=== PATIENT | male | born 1965 | race Caucasian/White ===

== ENCOUNTER → 2017-12-01 19:17 | Outpatient (REF) | payer MEDICAID, SELFPAY ==
[2017-12-01 21:33] LABS: HCT 44.1 % (40.0-50.0); HGB 14.5 g/dL (13.5-17.5); Mean Corp. HGB Concentration 32.9 g/dL (32.0-36.0); Mean Corpuscular Hemoglobin 26.3 pg (27.0-33.0); Mean Platelet Volume 10.6 fL (8.0-11.0); Platelet Count 296 x1000/uL (130-400); RBC 5.51 m/cumm (4.50-6.00); RBC Distribution Width 14.5 % (11.8-14.1); White Blood Cell Count 19.68 k/cumm (4.4-10.8)
[2017-12-01 22:07] LABS: ALT 56 U/L (12-78); AST 31 U/L (15-37); Albumin 3.8 g/dL (3.4-5.0); Alkaline Phosphatase 124 U/L (46-116); Anion Gap 13.4 mmol/L (3-11); BUN 26 mg/dL (7-18); Bilirubin, Total 0.5 mg/dL (0.2-1.0); CO2 23.6 mmol/L (21.0-32.0); CREATININE 1.37 mg/dL (0.70-1.30); Calcium 9.2 mg/dL (8.5-10.1); Chloride 97 mmol/L (98-107); Glucose 440 mg/dL (70-100); Potassium 4.2 mmol/L (3.5-5.1); Sodium 134 mmol/L (136-145); Total Protein 7.7 g/dL (6.4-8.2)
== END ==
LOC: NCHCN 19:17
PROVIDERS: PCP Specialist/Technologist Athletic Trainer; Visit Provider Specialist/Technologist Athletic Trainer
DX: E11.65 Type 2 diabetes mellitus with hyperglycemia (principal)
CPT/HCPCS: 80053; 85027

== ENCOUNTER 2018-01-30 21:00 | Emergency (ER) | payer MEDICAID, SELFPAY ==
[2018-01-30 21:03] VITALS: BP 132/81; PULSE 76; RESP 18; TEMP 36.6; O2SAT 98
--- NOTE | 2018-01-30 21:11 | DI.RAD_ITS ---
SYMPTOM/DIAGNOSIS: SLEDGE HAMMER +HAND, DEFORMITY RING FINGER. PAIN LEFT RING FINGER: 01/30 Four views were obtained. No fracture is seen.
--- NOTE | 2018-01-30 21:12 | W.ED.GENAD ---
Discharge Plan Disposition Patient Disposition: HOME Condition: Good Discharge Details Chief Complaint: Trauma Clinical Impression: Locking finger joint, Contusion of left ring finger Primary Care Provider: Ananda Naidu ED Provider: Julio C Chen Home Meds and New Rx's Prescriptions: No Action metformin 850 MG tablet 1,000 mg PO DAILY RF: 0 glipizide [Glucotrol XL] 10 MG tablet extended release 24hr 10 mg PO BID RF: 0 albuterol sulfate [ProAir HFA] 1 PUFF HFA aerosol inhaler 2 puff Inhalation Q4H PRN PRNQty: 1 RF: 0 naproxen 500 MG tablet 500 mg PO BID PRNQty: 15 RF: 0 aspirin 81 MG tablet,chewable 81 mg PO DAILY RF: 0 cyclobenzaprine 10 MG tablet 10 mg PO TID PRN PRN (Reason: Muscle Spasm) Qty: 15 RF: 0 metformin [Glucophage] 1,000 MG tablet 1,500 mg PO QAM RF: 0 hydrochlorothiazide 12.5 MG capsule 1 tab PO QAM RF: 0 liraglutide [Victoza 2-Jesús] 0.6 MG/0.1 ML pen injector 1.8 mg . HS RF: 0 loratadine 10 MG tablet 1 tab PO DAILY RF: 0 Discharge Instructions Instructions: Finger Sprain (ED) Additional Instructions: Please use ice, Tylenol, and Motrin. Please follow-up with orthopedics as soon as possible. Please keep the splint on. The orthopedics office will call you for a visit. If you notice any worsening of your symptoms, or any new symptoms such as vomiting, diarrhea, fever, chills, shortness of breath, chest pain, numbness, weakness, or fainting , please return immediately to the emergency department for reevaluation. Please follow up with your primary care provider as soon as possible for reassessment and reevaluation. As always, it was a pleasure participating in your medical care today. Dr. degroot [phone] Referrals: Teto Evans MD [ [facility] STAFF PHYSICIAN] - Medical Decision Making This is a pleasant 52-year-old male who presents for evaluation of trauma to his fourth digit. He hit it with a sledgehammer at 3 PM earlier today. He demonstrates an inability to flex at the PIP joint and the fourth digit. He has tenderness in the third and fifth digit as well. He has slight decrease in two-point discrimination over the fourth digit. We will get an x-ray to evaluate for any fracture. Tetanus is up-to-date. 10:43 PM X-ray results per virtual radiology demonstrate #1 soft tissue swelling. #2 no evidence of fracture. On reevaluation the patient is still unable to flex his ring finger. Pain is controlled, and the patient does not want any additional medications for pain at this time. With no evidence of dislocation or fracture and do not feel that any other acute management is indicated at this time. However, with his continued inability to flex I do feel that he would benefit from prompt follow-up with orthopedics. We will place the patient in a finger splint, with instructions for follow-up. We discussed red flags for which to return the patient understands. I have extensively reviewed the treatment plan and discharge instructions with the patient. I have addressed all patient concerns at this time. The patient was made aware of what symptoms to monitor for that would warrant a return to the emergency department. Discussed the plan with the patient, they demonstrate verbal understanding and agreement with our assessment and plan at this time. HPI General Date/Time Provider Initiated Documentation: 01/30/18 21:10. HPI Narrative: This is a 52-year-old male with a past medical history of diabetes, and hypertension who presents today for evaluation of finger pain. At 3 PM the patient states that he struck his left dominant hand with a sledgehammer. Since then he has been placing ice, and taking an unknown anti-inflammatory medication for pain. However the pain is continued and has not resolved. He has been unable to flex his ring finger and this is been his biggest concern. He is able to move his other fingers well. He does have some radiation of pain to his third and fifth fingers at the MCP joints. He does admit to some numbness and tingling over the tip of the fourth digit. He does have a small scrape over the ring finger over the PIP joint, however he denies any cut, or ever seeing any evidence of deep involvement when it initially occurred. He was wearing gloves when the initial incident occurred. The patient denies any other complaints at this time. He denies any previous recent surgeries, IV illicit drug use, or pertinent family history Related Data Home Medications Medication Instructions Recorded Confirmed albuterol sulfate [ProAir HFA] 2 puff INHALATION Q4H PRN PRN #1 07/31/12 01/30/18 inh glipizide [Glucotrol XL] 10 mg PO BID 07/31/12 01/30/18 metformin 1,000 mg PO DAILY 07/31/12 01/30/18 naproxen 500 mg PO BID PRN #15 tab 12/24/13 01/30/18 aspirin 81 mg PO DAILY 07/02/15 01/30/18 cyclobenzaprine 10 mg PO TID PRN PRN #15 tab 07/02/15 01/30/18 hydrochlorothiazide 1 tab PO QAM 06/07/17 01/30/18 liraglutide [Victoza 2-Jesús] 1.8 mg . HS 06/07/17 01/30/18 metformin [Glucophage] 1,500 mg PO QAM 06/07/17 01/30/18 loratadine 1 tab PO DAILY 11/21/17 01/30/18 Previous Rx's Medication Instructions Recorded albuterol sulfate [ProAir HFA] 2 puff INHALATION Q4H PRN PRN #1 07/31/12 inh naproxen 500 mg PO BID PRN #15 tab 12/24/13 cyclobenzaprine 10 mg PO TID PRN PRN #15 tab 07/02/15 Allergies Allergy/AdvReac Type Severity Reaction Status Date / Time codeine [Codeine] Allergy Mild Hives Unverified 01/30/18 21:05 lisinopril Allergy Anaphylaxsi Unverified 01/30/18 21:05 s Penicillins Allergy unknown Unverified 01/30/18 21:05 General Stated Complaint: Trauma ASHLEY: 4 Review of Systems Review of Systems All systems reviewed & are unremarkable except as noted in HPI and below PFSH Social History Smoking/Tobacco Use Status: Former Tobacco Use Exam Narrative Exam Narrative: 1.Const: Well-nourished, Well-developed, appearing stated age 2.Eyes: PERRL, no conjunctival injection, and symmetrical lids. 3.ENT: Atraumatic external nose and ears. Moist MM. Neck: Symmetric, trachea midline, No thyromegaly. 4.CVS: +S1/S2, No murmurs or gallops. Peripheral pulses 2+ and equal in all extremities. Brisk capillary refill in all extremities. 5.RESP: Unlabored respiratory effort. Clear to auscultation bilaterally. No wheezes rales or rhonchi 6.GI: Soft, Nontender/Nondistended, No hepatosplenomegaly. No guarding or rebound. 7.MSK: Normocephalic, No cyanosis or clubbing, Patient has +5 out of 5 strength in the left and right distal hands in the medial, ulnar, radial nerve distribution, intact light touch sensation in the left and right hands, and +2 over 2 radial pulses. He is though unable to flex at the PIP joint of the fourth digit on the left hand. Intact sensation distal to this, however decreased to joint position. Patient is able to differentiate between 2 points up to 3-4 mm on all fingers however the fourth finger is only up to 7 mm from maximum two-point discrimination. Capillary refill is brisk in all fingertips. Patient demonstrates good flexion extension of all fingers except for the fourth. No rotation of the ring finger. Tenderness on palpation over the entire fourth finger, and tenderness over the MCP joints of the fifth and third fingers. Small abrasion over the PIP joint on the fourth finger. No evidence of laceration or deep tissue involvement. 8.Skin: Warm, Dry. No rashes or lesions. 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 Sensation grossly intact, no focal neurologic deficits. Please see musculoskeletal exam 10.Psych: (AAO) x3. Appropriate mood and affect Course Vital Signs Temperature 36.6 C 01/30/18 21:03 Pulse 76 01/30/18 21:03 Respiratory Rate 18 01/30/18 21:03 Blood Pressure 132/81 01/30/18 21:03 Pulse Oximetry 98 01/30/18 21:03 Temperature 36.6 C 01/30/18 21:03 Pulse 76 01/30/18 21:03 Respiratory Rate 18 01/30/18 21:03 Respiratory Effort 01/30/18 21:06 Blood Pressure 132/81 01/30/18 21:03 Pulse Oximetry 98 01/30/18 21:03 Oxygen Delivery Method Room Air 01/30/18 21:03 Oxygen Flow Rate 0 01/30/18 21:03 Pain Level 7 01/30/18 21:03
--- NOTE | 2018-01-30 21:20 | ED.GENADUL_ITS ---
Discharge Plan Disposition Patient Disposition: HOME Condition: Good Discharge Details Chief Complaint: Trauma Clinical Impression: Locking finger joint, Contusion of left ring finger Primary Care Provider: Ananda Naidu ED Provider: Julio C Chen Home Meds and New Rx's Prescriptions: No Action metformin 850 MG tablet 1,000 mg PO DAILY RF: 0 glipizide [Glucotrol XL] 10 MG tablet extended release 24hr 10 mg PO BID RF: 0 albuterol sulfate [ProAir HFA] 1 PUFF HFA aerosol inhaler 2 puff Inhalation Q4H PRN PRNQty: 1 RF: 0 naproxen 500 MG tablet 500 mg PO BID PRNQty: 15 RF: 0 aspirin 81 MG tablet,chewable 81 mg PO DAILY RF: 0 cyclobenzaprine 10 MG tablet 10 mg PO TID PRN PRN (Reason: Muscle Spasm) Qty: 15 RF: 0 metformin [Glucophage] 1,000 MG tablet 1,500 mg PO QAM RF: 0 hydrochlorothiazide 12.5 MG capsule 1 tab PO QAM RF: 0 liraglutide [Victoza 2-Jesús] 0.6 MG/0.1 ML pen injector 1.8 mg . HS RF: 0 loratadine 10 MG tablet 1 tab PO DAILY RF: 0 Discharge Instructions Instructions: Finger Sprain (ED) Additional Instructions: Please use ice, Tylenol, and Motrin. Please follow-up with orthopedics as soon as possible. Please keep the splint on. The orthopedics office will call you for a visit. If you notice any worsening of your symptoms, or any new symptoms such as vomiting, diarrhea, fever, chills, shortness of breath, chest pain, numbness, weakness, or fainting , please return immediately to the emergency department for reevaluation. Please follow up with your primary care provider as soon as possible for reassessment and reevaluation. As always, it was a pleasure participating in your medical care today. Dr. degroot [phone] Referrals: Teto Evans MD [ [facility] STAFF PHYSICIAN] - Medical Decision Making This is a pleasant 52-year-old male who presents for evaluation of trauma to his fourth digit. He hit it with a sledgehammer at 3 PM earlier today. He demonstrates an inability to flex at the PIP joint and the fourth digit. He has tenderness in the third and fifth digit as well. He has slight decrease in two-point discrimination over the fourth digit. We will get an x- ray to evaluate for any fracture. Tetanus is up-to-date. 10:43 PM X-ray results per virtual radiology demonstrate #1 soft tissue swelling. #2 no evidence of fracture. On reevaluation the patient is still unable to flex his ring finger. Pain is controlled, and the patient does not want any additional medications for pain at this time. With no evidence of dislocation or fracture and do not feel that any other acute management is indicated at this time. However, with his continued inability to flex I do feel that he would benefit from prompt follow-up with orthopedics. We will place the patient in a finger splint, with instructions for follow-up. We discussed red flags for which to return the patient understands. I have extensively reviewed the treatment plan and discharge instructions with the patient. I have addressed all patient concerns at this time. The patient was made aware of what symptoms to monitor for that would warrant a return to the emergency department. Discussed the plan with the patient, they demonstrate verbal understanding and agreement with our assessment and plan at this time. HPI General Date/Time Provider Initiated Documentation: 01/30/18 21:10 . HPI Narrative: This is a 52-year-old male with a past medical history of diabetes, and hypertension who presents today for evaluation of finger pain. At 3 PM the patient states that he struck his left dominant hand with a sledgehammer. Since then he has been placing ice, and taking an unknown anti- inflammatory medication for pain. However the pain is continued and has not resolved. He has been unable to flex his ring finger and this is been his biggest concern. He is able to move his other fingers well. He does have some radiation of pain to his third and fifth fingers at the MCP joints. He does admit to some numbness and tingling over the tip of the fourth digit. He does have a small scrape over the ring finger over the PIP joint, however he denies any cut, or ever seeing any evidence of deep involvement when it initially occurred. He was wearing gloves when the initial incident occurred. The patient denies any other complaints at this time. He denies any previous recent surgeries, IV illicit drug use, or pertinent family history Related Data Home Medications Medication Instructions Recorded Confirmed albuterol sulfate [ProAir HFA] 2 puff INHALATION Q4H PRN PRN #1 07/31/12 inh glipizide [Glucotrol XL] 10 mg PO BID 07/31/12 01/30/18 metformin 1,000 mg PO DAILY 07/31/12 01/30/18 naproxen 500 mg PO BID PRN #15 tab 12/24/13 01/30/18 aspirin 81 mg PO DAILY 07/02/15 01/30/18 cyclobenzaprine 10 mg PO TID PRN PRN #15 tab 07/02/15 01/30/18 hydrochlorothiazide 1 tab PO QAM 06/07/17 01/30/18 liraglutide [Victoza 2-Jesús] 1.8 mg . HS 06/07/17 01/30/18 metformin [Glucophage] 1,500 mg PO QAM 06/07/17 01/30/18 loratadine 1 tab PO DAILY 11/21/17 01/30/18 Previous Rx's Medication Instructions Recorded albuterol sulfate [ProAir HFA] 2 puff INHALATION Q4H PRN PRN #1 07/31/12 inh naproxen 500 mg PO BID PRN #15 tab 12/24/13 cyclobenzaprine 10 mg PO TID PRN PRN #15 tab 07/02/15 Allergies Allergy/AdvReac Type Severity Reaction Status Date / Time codeine [Codeine] Allergy Mild Hives Unverified 01/30/18 21:05 lisinopril Allergy Anaphylaxsi Unverified 01/30/18 21:05 s Penicillins Allergy unknown Unverified 01/30/18 21:05 General Stated Complaint: Trauma ASHLEY: 4 Review of Systems Review of Systems All systems reviewed & are unremarkable except as noted in HPI and below PFSH Social History Smoking/Tobacco Use Status: Former Tobacco Use Exam Narrative Exam Narrative: 1.Const: Well-nourished, Well-developed, appearing stated age 2.Eyes: PERRL, no conjunctival injection, and symmetrical lids. 3.ENT: Atraumatic external nose and ears. Moist MM. Neck: Symmetric, trachea midline, No thyromegaly. 4.CVS: +S1/S2, No murmurs or gallops. Peripheral pulses 2+ and equal in all extremities. Brisk capillary refill in all extremities. 5.RESP: Unlabored respiratory effort. Clear to auscultation bilaterally. No wheezes rales or rhonchi 6.GI: Soft, Nontender/Nondistended, No hepatosplenomegaly. No guarding or rebound. 7.MSK: Normocephalic, No cyanosis or clubbing, Patient has +5 out of 5 strength in the left and right distal hands in the medial, ulnar, radial nerve distribution, intact light touch sensation in the left and right hands, and +2 over 2 radial pulses. He is though unable to flex at the PIP joint of the fourth digit on the left hand. Intact sensation distal to this, however decreased to joint position. Patient is able to differentiate between 2 points up to 3-4 mm on all fingers however the fourth finger is only up to 7 mm from maximum two-point discrimination. Capillary refill is brisk in all fingertips. Patient demonstrates good flexion extension of all fingers except for the fourth. No rotation of the ring finger. Tenderness on palpation over the entire fourth finger, and tenderness over the MCP joints of the fifth and third fingers. Small abrasion over the PIP joint on the fourth finger. No evidence of laceration or deep tissue involvement. 8.Skin: Warm, Dry. No rashes or lesions. 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 Sensation grossly intact, no focal neurologic deficits. Please see musculoskeletal exam 10.Psych: (AAO) x3. Appropriate mood and affect Course Vital Signs Temperature 36.6 C 01/30/18 21:03 Pulse 76 01/30/18 21:03 Respiratory Rate 18 01/30/18 21:03 Blood Pressure 132/81 01/30/18 21:03 Pulse Oximetry 98 01/30/18 21:03 Temperature 36.6 C 01/30/18 21:03 Pulse 76 01/30/18 21:03 Respiratory Rate 18 01/30/18 21:03 Respiratory Effort 01/30/18 21:06 Blood Pressure 132/81 01/30/18 21:03 Pulse Oximetry 98 01/30/18 21:03 Oxygen Delivery Method Room Air 01/30/18 21:03 Oxygen Flow Rate 0 01/30/18 21:03 Pain Level 7 01/30/18 21:03
--- NOTE | 2018-01-30 22:18 | DI.VRAD_ITS ---
EXAM: XR Left Finger(s), 2 or More Views EXAM DATE/TIME: 01/30/2018 9:12 PM CLINICAL HISTORY: 52 years old, male; Pain; Finger(s) and hand; Left; Patient HX: Sledgehammer + hand, deformity ring, pain 3-5 fingers TECHNIQUE: XR Left finger minimum 2 views. COMPARISON: No relevant prior studies available. FINDINGS: The study is performed with attention to the fourth finger. There is soft tissue swelling. No fractures are identified. The joint spaces are well-maintained. There is no bony destruction. Incidental note is made of a bony density proximal to the radioulnar joint. IMPRESSION: 1. Soft tissue swelling. 2. No evidence of fracture. Dictated and Authenticated by: Aroldo Rico MD. Ordering:DONTAE SNIDER MD
== END 2018-01-30 23:05 | disposition home or self-care (01) ==
PROVIDERS: Emergency Provider Student in an Organized Health Care Education/Training Program; PCP Specialist/Technologist Athletic Trainer
DX: M24.842 Other specific joint derangements of left hand, not elsewhere classified (principal); S60.042A Contusion of left ring finger without damage to nail, initial encounter; W27.8XXA Contact with other nonpowered hand tool, initial encounter; E11.9 Type 2 diabetes mellitus without complications; Z79.84 Long term (current) use of oral hypoglycemic drugs; I10 Essential (primary) hypertension
CPT/HCPCS: 29130; 99283; 73140

== ENCOUNTER 2018-05-11 19:10 | Outpatient (REF) | payer MEDICAID, SELFPAY ==
[2018-05-11 21:59] LABS: Anion Gap 8.7 mmol/L (3-11); BUN 19 mg/dL (7-18); CO2 26.3 mmol/L (21.0-32.0); CREATININE 0.77 mg/dL (0.70-1.30); Calcium 9.3 mg/dL (8.5-10.1); Chloride 104 mmol/L (98-107); Cholesterol 146 mg/dL (50-200); Glucose 97 mg/dL (70-100); HDL Cholesterol 38 mg/dL (40-60); LDL CHOLESTEROL 92 mg/dL (<100); Potassium 4.8 mmol/L (3.5-5.1); Sodium 139 mmol/L (136-145); Triglyceride 110 mg/dL (30-150)
== END 2018-05-11 19:30 ==
LOC: NCHCN 19:10
PROVIDERS: PCP Specialist/Technologist Athletic Trainer; Visit Provider Specialist/Technologist Athletic Trainer
DX: E11.65 Type 2 diabetes mellitus with hyperglycemia (principal); I10 Essential (primary) hypertension; Z00.00 Encounter for general adult medical examination without abnormal findings
CPT/HCPCS: 80048; 80061; 83721

== ENCOUNTER 2018-05-30 09:52 | Emergency (ER) | payer MEDICAID, SELFPAY ==
[2018-05-30 10:05] VITALS: BP 133/88; PULSE 76; RESP 16; TEMP 36.8; O2SAT 96
--- NOTE | 2018-05-30 10:52 | ED.GENADUL_ITS ---
Discharge Plan Disposition Patient Disposition: HOME Condition: Stable Discharge Details Chief Complaint: RespSymp Clinical Impression: Infection, respiratory tract Primary Care Provider: Ananda Naidu ED Provider: Kalpesh Albrecht Home Meds and New Rx's Prescriptions: New doxycycline hyclate 100 mg capsule 100 mg PO BID 7 Days Qty: 14 RF: 0 benzonatate 200 mg capsule 200 mg PO TID PRN (Reason: cough) Qty: 30 RF: 0 Continued metformin 850 MG tablet 1,000 mg PO DAILY RF: 0 glipizide [Glucotrol XL] 10 MG tablet extended release 24hr 10 mg PO BID RF: 0 ProAir HFA 1 PUFF HFA aerosol inhaler 2 puff Inhalation Q4H PRN PRNQty: 1 RF: 0 aspirin 81 MG tablet,chewable 81 mg PO DAILY RF: 0 metformin [Glucophage] 1,000 MG tablet 1,500 mg PO QAM RF: 0 hydrochlorothiazide 12.5 MG capsule 1 tab PO QAM RF: 0 Victoza 2-Jesús 0.6 MG/0.1 ML pen injector 1.8 mg . HS RF: 0 Discontinued cyclobenzaprine 10 MG tablet 10 mg PO TID PRN PRN (Reason: Muscle Spasm) Qty: 15 RF: 0 loratadine 10 MG tablet 1 tab PO DAILY RF: 0 Discharge Instructions Instructions: Upper Respiratory Infection (ED), Cold Symptoms (ED) Additional Instructions: Return immediately to the emergency department for any new or significant worsening of symptoms otherwise take antibiotics as prescribed and until fully completed. If not improving by the end of your antibiotic you should follow-up with your primary care provider for reassessment. During the stay well-hydrated and get plenty of rest Referrals: Ananda Naidu [Primary Care Provider] - (As needed for reassessment) Discharge Data Discharge Date/Time-TO BE ENTERED AT DEPARTURE: 05/30/18 11:05 Medical Decision Making Patient presenting the emergency department for 2 weeks of cold symptoms. He states continued fever and chills, productive cough, and just not getting any better. Patient denies any rash, nausea vomiting diarrhea. HEENT exam is unremarkable and lung sounds appear clear with some diminished lung sounds to lower bases. Patient has no signs of meningitis, retropharyngeal or peritonsillar abscess. Patient is afebrile stable vital signs. I do feel slightly concerned the patient has had symptoms for greater than 2 weeks and is still stating fever and chills especially at night plan to place patient on antibiotics and prescribed Tessalon Perles for cough suppressant. Patient encouraged to return for any new or worsening symptoms otherwise follow-up with primary care provider as needed. After discussion of diagnosis and plan of care patient has no further needs, questions, or concerns and states clear understanding to return to the emergency department for any worsening symptoms. HPI General Mode of arrival: ambulatory . Date/Time Provider Initiated Documentation: 05/30/18 10:04 . Limitations to Documentation: no limitations . Information obtained by: patient and RN notes reviewed . History of Present Illness 52 year old M presents to the emergency department with the chief complaint of cold symptoms, Quality is described as other (denies pain), Patient started experiencing this week(s) (2) and it has been constant. No relieving factors improve symptom(s), Patient did receive the following treatments prior to arrival, none Related Data Home Medications Medication Instructions Recorded Confirmed ProAir HFA 2 puff INHALATION Q4H PRN PRN #1 07/31/12 05/30/18 inh glipizide [Glucotrol XL] 10 mg PO BID 07/31/12 05/30/18 metformin 1,000 mg PO DAILY 07/31/12 05/30/18 aspirin 81 mg PO DAILY 07/02/15 05/30/18 Victoza 2-Jesús 1.8 mg . HS 06/07/17 05/30/18 hydrochlorothiazide 1 tab PO QAM 06/07/17 05/30/18 metformin [Glucophage] 1,500 mg PO QAM 06/07/17 05/30/18 benzonatate 200 mg PO TID PRN #30 cap 05/30/18 doxycycline hyclate 100 mg PO BID 7 Days #14 cap 05/30/18 Previous Rx's Medication Instructions Recorded ProAir HFA 2 puff INHALATION Q4H PRN PRN #1 07/31/12 inh benzonatate 200 mg PO TID PRN #30 cap 05/30/18 doxycycline hyclate 100 mg PO BID 7 Days #14 cap 05/30/18 Allergies Allergy/AdvReac Type Severity Reaction Status Date / Time codeine [Codeine] Allergy Mild Hives Unverified 05/30/18 10:09 lisinopril Allergy Anaphylaxsi Unverified 05/30/18 10:09 s Penicillins Allergy unknown Unverified 05/30/18 10:09 General Stated Complaint: RespSymp ASHLEY: 4 Review of Systems Constitutional Reports body ache(s), Reports chills, Reports fever(s), Reports headache(s) and Reports malaise Eyes Denies eye discharge ENT Reports as per HPI, Denies ear discharge, Denies otalgia, Reports headache(s), Reports nasal congestion, Reports nasal discharge, Denies neck pain, Reports sinus pain, Reports sinus pressure, Reports sore throat and Denies throat swelling Cardiovascular Denies chest pain and Denies dyspnea Respiratory Reports change in phlegm color, Reports chest congestion, Reports cough and Denies dyspnea Musculoskeletal Denies joint swelling and Denies neck pain Integumentary/Breasts Denies rash Neurologic Reports headache(s) Allergic/Immunologic Denies throat swelling PFSH Social History Smoking/Tobacco Use Status: Former Tobacco Use Exam Const General: cooperative, comfortable and no acute distress Orientation: alert and awake HENMT Head: normal to inspection, normocephalic and atraumatic Ears: hearing grossly normal bilaterally and TM's normal bilaterally General nose exam: external nose normal Face and sinus: no erythema and sinus tenderness frontal and maxillary Mouth: oral mucosae normal, no drooling, no muffled voice and no trismus Throat: posterior oropharynx normal, tonsils normal and uvula midline Neck Neck: normal visual inspection, full ROM, no lymphadenopathy, no meningeal signs, trachea midline and supple Resp Effort & Inspection: normal respiratory effort, able to speak in complete sentences and cough Quality of cough: dry Auscultation: clear to auscultation bilaterally Cardio Rate: regular rate Rhythm: regular rhythm Heart Sounds: S1 normal, S2 normal, normal S1 and S2, no click, no gallops, no murmurs and no rubs Skin General skin exam: no rashes or lesions noted and dry skin (warm) Neuro General: alert, awake, oriented x3, gait normal and moves all extremities Cognition: normal cognition Speech: speech normal Course Vital Signs Temperature 36.8 C 05/30/18 10:05 Pulse 76 05/30/18 10:05 Respiratory Rate 16 05/30/18 10:05 Blood Pressure 133/88 05/30/18 10:05 Pulse Oximetry 96 05/30/18 10:05 Temperature 36.8 C 05/30/18 10:05 Pulse 76 05/30/18 10:05 Respiratory Rate 16 05/30/18 10:05 Respiratory Effort Non-Labored 05/30/18 10:07 Blood Pressure 133/88 05/30/18 10:05 Blood Pressure Position Sitting 05/30/18 10:05 Pulse Oximetry 96 05/30/18 10:05 Oxygen Delivery Method Room Air 05/30/18 10:05 Oxygen Flow Rate 0 05/30/18 10:05 Pain Level 0 05/30/18 10:05
== END 2018-05-30 11:05 | disposition home or self-care (01) ==
PROVIDERS: Emergency Provider Nurse Practitioner Family; PCP Specialist/Technologist Athletic Trainer
DX: J06.9 Acute upper respiratory infection, unspecified (principal)
CPT/HCPCS: 99283

== ENCOUNTER 2019-04-27 15:15 | Outpatient (REF) | payer OTHER, SELFPAY ==
[2019-04-27 19:04] LABS: HCT 48.6 % (40.0-50.0); HGB 15.6 g/dL (13.5-17.5); Mean Corp. HGB Concentration 32.1 g/dL (32.0-36.0); Mean Corpuscular Hemoglobin 25.9 pg (27.0-33.0); Mean Corpuscular Volume 80.6 fL (80-95); Mean Platelet Volume 10.2 fL (8.0-11.0); Platelet Count 298 x1000/uL (130-400); RBC 6.03 m/cumm (4.50-6.00); RBC Distribution Width 14.3 % (11.8-14.1); White Blood Cell Count 11.14 k/cumm (4.4-10.8)
[2019-04-27 19:20] LABS: ALT 66 U/L (16-63); AST 46 U/L (15-37); Albumin 3.9 g/dL (3.4-5.0); Alkaline Phosphatase 98 U/L (46-116); Anion Gap 9.6 mmol/L (3-11); BUN 16 mg/dL (7-18); Bilirubin, Total 0.5 mg/dL (0.2-1.0); CO2 28.4 mmol/L (21.0-32.0); CREATININE 0.74 mg/dL (0.70-1.30); Calcium 9.8 mg/dL (8.5-10.1); Chloride 100 mmol/L (98-107); Glucose 179 mg/dL (74-106); Potassium 5.1 mmol/L (3.5-5.1); Sodium 138 mmol/L (136-145); Total Protein 8.3 g/dL (6.4-8.2)
[2019-04-27 20:10] LABS: Hemoglobin A1C 11.2 % (3.8-5.6)
== END 2019-04-27 15:35 ==
LOC: NCHCN 15:15
PROVIDERS: PCP Specialist/Technologist Athletic Trainer; Visit Provider Specialist/Technologist Athletic Trainer
DX: I10 Essential (primary) hypertension (principal); E11.65 Type 2 diabetes mellitus with hyperglycemia
CPT/HCPCS: 80053; 85027; 83036

== ENCOUNTER 2020-05-12 06:35 | Emergency (ER) | payer OTHER, SELFPAY ==
[2020-05-12] VITALS (9 sets, daily range): PULSE 65–82; RESP 14–24; TEMP 36.5; O2SAT 92–95
--- NOTE | 2020-05-12 06:15 | RT.EKG_ITS ---
APPROVED REPORT Exam: Resting ECG Patient Location: E HR:76 bpm ECG Measurements Heart Rate 76 AXIS [place] 147 P 36 QRSd 89 QRS 12 QT 389 T 33 QTc 440 Conclusion Sinus rhythm...normal P axis, V-rate 60- 99 Multiple ventricular premature complexes...V complexes w/ short R-R intervls Physician: Rate 76, intervals normal, sinus rhythm, multiple PVCs, similar to bigeminy or trigeminy, no evidence of STEMI, no evidence of WPW, epsilon wave, Brugada syndrome, or signs of hypertrophy
--- NOTE | 2020-05-12 06:45 | DI.CT_ITS ---
EXAM: CT HEAD WO CLINICAL HISTORY: headache, syncope. TECHNIQUE: Imaging Protocol: Axial computed tomography images with coronal and sagittal reformatted images were created and reviewed COMPARISON: No exams were available for comparison FINDINGS: There are no skull fractures nor fluid in the visualized paranasal sinuses. There is no evidence of intracranial hemorrhage, intra or extra-axial. Ventricles are not enlarged or shifted. Main finding here is a nonenlarged pituitary gland which extends into the supra sellar cistern. Prob ably adenoma. IMPRESSION: No evidence of intracranial hemorrhage. Abnormally enlarged pituitary gland probable adenoma but requiring dedicated pituitary MRI for better evaluation. RADIATION DOSE DELIVERED: 883.11mGy.cm Total DLP DATA REPOSITORY: All CT scans at this facility are submitted to the National Radiology Data Registry (NRDR) Dose Index Registry (DIR) with the [employer] ([employer]). RADIATION OPTIMIZATION: All CT scans at this facility use at least one of these dose optimization te chniques: automated exposure control; mA and/or kV adjustment per patient size (includes targeted exa ms where dose is matched to clinical indication); or iterative reconstruction.
[2020-05-12 07:00] LABS: Abs Immature Grans 0.05 10^3/uL (0.0-0.06); Absolute Basophil Count 0.08 10^3/uL (0.0-0.2); Absolute Eosinophil Count 0.03 10^3/uL (0.0-0.7); Absolute Lymphocyte Count 2.23 10^3/uL (1.2-3.4); Basophils % 0.6; Eosinophils % 0.2; HCT 50.3 % (40.0-50.0); Immature Grans % 0.4; Lymphocytes % 16.5; MCH 26.1 pg (27.0-33.0); MCHC 31.8 % (32.0-36.0); MCV 81.9 fL (80-95); MPV 9.4 fL (8.0-11.0); Monocytes % 6.1; Neutrophils % 76.2; Nucleated RBC 0 %; RBC 6.14 10^6/uL (4.36-5.78); RDW 14.1 % (11.8-14.1); RDW-SD 41.1 fL; WBC 13.52 10^3/uL (4.4-10.8)
[2020-05-12] MEDS: Acetaminophen 500 MG TAB 1000 MG PO (07:01)
[2020-05-12] MEDS: methylPREDNISolone SUCC 125 MG VIAL IVP (07:01)
[2020-05-12] MEDS: Prochlorperazine 10 MG/2 ML VIAL IVP (07:02)
[2020-05-12] MEDS: Normal Saline 1,000 ML 1000 ML IV (07:02)
[2020-05-12] MEDS: diphenhydrAMINE 50 MG/ML VIAL 25 MG IVP (07:02)
[2020-05-12 07:11] LABS: Absolute Monocyte Count 0.82 10^3/uL (0.1-0.8)
[2020-05-12 07:14] LABS: PTT Activated 23.9 sec (21.0-27.5); Prothrombin Time 10.5 sec (9.3-11.0)
--- NOTE | 2020-05-12 07:17 | W.ED.GENAD ---
Discharge Plan Disposition Patient Disposition: AGAINST MEDICAL ADVICE Condition: Stable Discharge Details Clinical Impression: Syncope, Headache Primary Care Provider: Ananda Naidu ED Provider: Izabella Jones Home Meds and New Rx's Prescriptions: Continued metformin 850 MG tablet 1,000 mg PO DAILY RF: 0 glipizide [Glucotrol XL] 10 MG tablet extended release 24hr 10 mg PO BID RF: 0 albuterol sulfate [ProAir HFA] 1 PUFF HFA aerosol inhaler 2 puff Inhalation Q4H PRN PRNQty: 1 RF: 0 aspirin 81 MG tablet,chewable 81 mg PO DAILY RF: 0 metformin [Glucophage] 1,000 MG tablet 1,500 mg PO QAM RF: 0 hydrochlorothiazide 12.5 MG capsule 25 mg PO QAM RF: 0 Victoza 2-Jesús 0.6 MG/0.1 ML pen injector 1.8 mg . HS RF: 0 losartan 25 mg Tablet 25 mg PO DAILY RF: 0 Lantus Solostar U-100 Insulin 100 unit/mL (3 mL) Insulin Pen 20 unit SUBCUT HS RF: 0 Discharge Instructions Instructions: Syncope (ED), General Headache (ED) Additional Instructions: You have elected to leave the emergency department AGAINST MEDICAL ADVICE. The risks of doing so are or permanent disability. You may return to emergency department anytime if you change your mind and wish to continue your evaluation. Please return immediately to the emergency department if you develop any new or worsening symptoms, if your condition does not improve as expected, or if you become otherwise concerned. It is extremely important that you call soon as possible to make an appointment to be seen in follow-up for this visit by your primary care doctor. Referrals: Ananda Naidu [Primary Care Provider] - Medical Decision Making <Julio C Chen DO - Last Filed: 05/12/20 07:29> 54-year-old male with a past medical history of hypertension, type 2 diabetes, reactive airway disease, and history of migraines presents today for evaluation of syncope and headache. Patient states last night he was preparing dinner, he felt ill, he sat down, and eventually his nausea resolved and he returned back to baseline. He slept well throughout the night, then early this morning he woke up around 6 AM, again felt notably ill, except this time he was nauseous, became cold and clammy, and had sudden numbness in his right lower extremity, and then syncopized. When he came to he had a notable severe headache she describes in the back of his head. He states it felt similar to his normal migraines however the other symptoms are notably atypical. He did not fall or hit his head. Shortly thereafter the numbness tingling and weakness in his right lower extremity resolved. EMS was contacted, he is brought into the ER for further assessment. Stroke score at that time was negative. Patient had returned to his baseline upon arrival aside for the presence of continued headache. Denies PE risk factors such as recent long car rides, immobilization, recent surgery, prior history of DVT or PE, family history of PE or DVT, morbid obesity, exogenous estrogen and smoking, hemoptysis, history of cancer. He denies any chest pain, chest tightness, shortness of breath, bandlike sensation around the chest. Physical exam is notably unremarkable, EKG shows evidence of notable PVCs concerning for bigeminy and trigeminy, although this resolved on its own shortly after initial EKG. Neurologic exam is benign, no signs of meningitis. Differential includes dysrhythmia causing the syncope and headache, atypical complex migraine, less likely intracranial hemorrhage. Patient's symptoms occurred within the last 2 hours, and I feel he would be a good candidate for CT imaging to evaluate for bleed which I feel less likely though. We will also evaluate for stroke, and treat for potential migraine pain, evaluate for cardiac etiology, monitor closely and reassess. EKG 6: 43 Rate 76, intervals normal, sinus rhythm, multiple PVCs, similar to bigeminy or trigeminy, no evidence of STEMI, no evidence of WPW, epsilon wave, Brugada syndrome, or signs of hypertrophy <Izabella Jones MD - Last Filed: 05/12/20 10:00> Gil Cunningham is a 54-year-old man signed out to me by Dr. Chen at time of shift change with imaging and lab results, admission anticipated if work-up negative given initial abnormal EKG and concern for possible arrhythmia causing syncope. From CT scan patient stated that he did not want to undergo CTA after CT head was completed. Patient returned back to emergency department and stated that he feels fine, he is uncomfortable in the hospital bed, his IV has been uncomfortable since placement and he would like to leave immediately. I discussed with patient that he could be seated in patient recliner or otherwise any more comfortable, IV can be assessed, my concerns for possible undiagnosed health conditions at this time, CT head not yet resulted, and the risks of leaving AGAINST MEDICAL ADVICE including /permanent disability. Patient states that he wants to be in his own home and wants to leave immediately. Patient verbalized understanding of the risk. Patient with decision-making capacity. I had a lengthy discussion with Patient regarding return to emergency department precautions, home care, that he may return to emergency department at any time if he changes his mind, and importance of outpatient follow-up for diagnostics that were performed today and his medical condition given today's reported symptoms. Pt verbalizes understanding of the plan and is amenable. Patient discharged to home with clear plan for outpatient follow-up. All questions were answered. Disposition decision was made weighing the risks and benefits of hospitalization versus outpatient treatment, the risk for further decompensation, and the patient's wishes. Patient walked out of the emergency department without further issue. Medical Records Medical records reviewed: Yes I reviewed the patient's medical records. HPI <Julio C Chen DO - Last Filed: 05/12/20 07:29> General Date/Time Provider Initiated Documentation: 05/12/20 06:48. HPI Narrative: 54-year-old male with a past medical history of hypertension, type 2 diabetes, reactive airway disease, and history of migraines presents today for evaluation of syncope and headache. Patient states last night he was preparing dinner, he felt ill, he sat down, and eventually his nausea resolved and he returned back to baseline. He slept well throughout the night, then early this morning he woke up around 6 AM, again felt notably ill, except this time he was nauseous, became cold and clammy, and had sudden numbness in his right lower extremity, and then syncopized. When he came to he had a notable severe headache she describes in the back of his head. He states it felt similar to his normal migraines however the other symptoms are notably atypical. He did not fall or hit his head. Shortly thereafter the numbness tingling and weakness in his right lower extremity resolved. EMS was contacted, he is brought into the ER for further assessment. Stroke score at that time was negative. Patient had returned to his baseline upon arrival aside for the presence of continued headache. Denies PE risk factors such as recent long car rides, immobilization, recent surgery, prior history of DVT or PE, family history of PE or DVT, morbid obesity, exogenous estrogen and smoking, hemoptysis, history of cancer. He denies any chest pain, chest tightness, shortness of breath, bandlike sensation around the chest. Related Data Home Medications Medication Instructions Recorded Confirmed albuterol sulfate [ProAir HFA] 2 puff INHALATION Q4H PRN PRN #1 07/31/12 05/12/20 inh glipizide [Glucotrol XL] 10 mg PO BID 07/31/12 05/12/20 metformin 1,000 mg PO DAILY 07/31/12 05/12/20 aspirin 81 mg PO DAILY 07/02/15 05/12/20 Victoza 2-Jesús 1.8 mg . HS 06/07/17 05/12/20 hydrochlorothiazide 25 mg PO QAM 06/07/17 05/12/20 metformin [Glucophage] 1,500 mg PO QAM 06/07/17 05/12/20 Lantus Solostar U-100 Insulin 20 unit SUBCUT HS 05/12/20 05/12/20 losartan 25 mg PO DAILY 05/12/20 05/12/20 Previous Rx's Medication Instructions Recorded albuterol sulfate [ProAir HFA] 2 puff INHALATION Q4H PRN PRN #1 07/31/12 inh Allergies Allergy/AdvReac Type Severity Reaction Status Date / Time codeine [Codeine] Allergy Mild Hives Unverified 05/30/18 10:09 lisinopril Allergy Anaphylaxsi Unverified 05/30/18 10:09 s Penicillins Allergy unknown Unverified 05/30/18 10:09 General Stated Complaint: Dizzy/Sync ASHLEY: 2 Review of Systems <Julio C Chen DO - Last Filed: 05/12/20 07:29> All systems reviewed & are unremarkable except as noted in HPI and below PFSH <Julio C Chen DO - Last Filed: 05/12/20 07:29> Social History Smoking/Tobacco Use Status: Former Tobacco Use Smoking risk assessment performed?: Yes Alcohol Intake: current Alcohol Intake frequency: holidays/special occasions only Drug use: Never Substance use type: does not use Do you feel safe at home: Yes Do you feel safe in your relationship?: Yes Exam <Julio C R DO April - Last Filed: 05/12/20 07:29> Narrative Exam Narrative: 1.Const: Well-nourished, Well-developed, appearing stated age 2.Eyes: PERRL, no conjunctival injection, and symmetrical lids. 3.ENT: Atraumatic external nose and ears. Moist MM. Neck: Symmetric, trachea midline, No thyromegaly. Patient demonstrates good movement of cervical neck. There is no nuchal rigidity, no nuchal tenderness. Patient is able to flex the neck without any difficulty or significant pain. Negative Kernig's and Brudzinski sign. No evidence of otitis media. 4.CVS: +S1/S2, No murmurs or gallops. Peripheral pulses 2+ and equal in all extremities. Brisk capillary refill in all extremities. 5.RESP: Unlabored respiratory effort. Clear to auscultation bilaterally. No wheezes rales or rhonchi 6.GI: Soft, Nontender/Nondistended, No hepatosplenomegaly. No guarding or rebound. 7.MSK: Normocephalic/Atraumatic, Extremities w/o deformity or ttp No cyanosis or clubbing, Normal movement of all extremities. No calf tenderness 8.Skin: Warm, Dry. No rashes or lesions. 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 Sensation grossly intact, no focal neurologic deficits. All 6 cardinal planes of vision are fully intact. No evidence of rotatory or vertical nystagmus. The patient demonstrated a normal [id number], good dexterity. There was no evidence of dysdiadochokinesia. Patient was able to ambulate without difficulty. There was no wide-based gait. Romberg testing was normal. Vkth-nx-slam testing was normal. Sensation was intact bilaterally as well as muscle strength bilaterally for all extremities. Patient was able to verbalize butter cup with no slurring, or miss pronunciation. 10.Psych: (AAO) x3. Appropriate mood and affect Course <Julio C Chen DO - Last Filed: 05/12/20 07:29> Vital Signs Vital signs: Vital Signs Temperature 36.5 C 05/12/20 06:32 Pulse 82 05/12/20 06:32 Respiratory Rate 14 05/12/20 06:32 Pulse Oximetry 94 05/12/20 06:32 Temperature 36.5 C 05/12/20 06:32 Temperature Source Skin 05/12/20 06:32 Pulse 82 05/12/20 06:32 Pulse 73 05/12/20 07:10 Respiratory Rate 21 05/12/20 07:10 Respiratory Effort 05/12/20 06:46 Respiratory Depth Normal 05/12/20 06:46 Respiratory Pattern Normal 05/12/20 06:46 Pulse Oximetry 94 05/12/20 07:10 Pain Level 7 05/12/20 06:32 Comment 05/12/20 06:32 Lab/Test Results Lab/Test Results: Laboratory Tests Range/Units 05/12/20 06:50 PT (9.3-11.0) sec 10.5 INR (0.9-1.1) 1.0 APTT (21.0-27.5) sec 23.9 Sign Out <Julio C Chen DO - Last Filed: 05/12/20 07:29> Sign Out Data: Sign Out Comment: Syncope, headache, giving migraine cocktail, pending CTA of the head, cardiac work-up and repeat troponin/EKG. Last updated by Julio C Chen DO at 05/12/20 07:30
[2020-05-12 07:21] LABS: Platelet Count 289 10^3/uL (130-400)
[2020-05-12 07:22] LABS: Diff Comment Diff Reviewed; RBC Morphology Normal
[2020-05-12 07:30] LABS: ALT 60 U/L (16-63); AST 46 U/L (15-37); Albumin 3.7 g/dL (3.4-5.0); Alkaline Phosphatase 76 U/L (46-116); Anion Gap 11.5 mmol/L (3-11); BUN 23 mg/dL (7-18); Bilirubin, Total 0.7 mg/dL (0.2-1.0); CO2 23.5 mmol/L (21.0-32.0); CREATININE 1.03 mg/dL (0.70-1.30); Calcium 9.1 mg/dL (8.5-10.1); Chloride 100 mmol/L (98-107); Glucose 197 mg/dL (74-106); Magnesium 2.3 mg/dL (1.8-2.4); NT-proBNP 52 pg/mL (<300); Sodium 135 mmol/L (136-145); TSH (W/Ref FT4) 1.99 uIU/mL (0.36-3.74); Total Protein 8.4 g/dL (6.4-8.2)
[2020-05-12 07:31] LABS: Troponin I < 0.05 ng/mL (<0.06)
[2020-05-12] MEDS: Omnipaque 350 MG/ML 100 ML BTL IV (07:47)
--- NOTE | 2020-05-12 13:13 | NUR.NOTE ---
referral to care management, pt left amaNursing Note:
--- NOTE | 2020-05-14 13:34 | PDOC.ERCMPRO ---
- If Service Date Differs Date of service: 05/14/20 Time of Service: 13:34 Care Management Progress Note Gil was seen in the ED on 05/12/20 and left AMA. speaks with Gil in a follow up phone call. He reports he is feeling better. He still has a headache but it is much improved. He states he left the hospital against medical advice because he had been here for over 3 hours, was feeling better, and had other things to do. He additionally shares the IV that was placed in his arm was hurting and made it impossible for him to move his arm. He is unhappy with the care he received in the emergency room.
== END 2020-05-12 08:26 | disposition left against medical advice (07) ==
PROVIDERS: Student in an Organized Health Care Education/Training Program; Emergency Provider Student in an Organized Health Care Education/Training Program; PCP Specialist/Technologist Athletic Trainer
DX: R55 Syncope and collapse (principal); R51.9 Headache, unspecified; Z53.29 Procedure and treatment not carried out because of patient's decision for other reasons; I10 Essential (primary) hypertension; E11.9 Type 2 diabetes mellitus without complications; Z79.84 Long term (current) use of oral hypoglycemic drugs
CPT/HCPCS: 36415; 80053; 93005; 96361; 96374; 96375; 99285; 70450; 83735; 83880; 84443; 84484; 85025; 85610; 85730; 93010; 99284; J0780; J1200; J2930; J3490

== ENCOUNTER 2020-05-18 13:05 | Emergency (ER) | payer OTHER, SELFPAY ==
[2020-05-18] VITALS (41 sets, daily range): BP systolic 116–154; BP diastolic 83–105; PULSE 53–84; RESP 8–48; TEMP 37.2; O2SAT 91–98
--- NOTE | 2020-05-18 13:15 | RT.EKG_ITS ---
APPROVED REPORT Exam: Resting ECG Patient Location: E HR:77 bpm ECG Measurements Heart Rate 77 AXIS [place] 157 P 86 QRSd 89 QRS 27 QT 366 T 8 QTc 413 Conclusion Sinus rhythm...normal P axis, V-rate 60- 99 I have reviewed and interpreted ECG and agree with software generated interpretation.
--- NOTE | 2020-05-18 13:23 | ED.GENADUL_ITS ---
Discharge Plan Disposition Patient Disposition: HOME Condition: Improving Discharge Details Clinical Impression: Dizziness, Headache, Nausea Primary Care Provider: Ananda Naidu ED Provider: Lalita Vail Home Meds and New Rx's Prescriptions: New prochlorperazine maleate [Compazine] 10 mg tablet 10 mg PO TID PRN (Reason: nausea and vomiting) Qty: 7 RF: 0 Continued metformin 850 MG tablet 1,000 mg PO DAILY RF: 0 glipizide [Glucotrol XL] 10 MG tablet extended release 24hr 10 mg PO BID RF: 0 albuterol sulfate [ProAir HFA] 1 PUFF HFA aerosol inhaler 2 puff Inhalation Q4H PRN PRNQty: 1 RF: 0 aspirin 81 MG tablet,chewable 81 mg PO DAILY RF: 0 metformin [Glucophage] 1,000 MG tablet 1,500 mg PO QAM RF: 0 hydrochlorothiazide 12.5 MG capsule 25 mg PO QAM RF: 0 Victoza 2-Jesús 0.6 MG/0.1 ML pen injector 1.8 mg . HS RF: 0 losartan 25 mg Tablet 25 mg PO DAILY RF: 0 Lantus Solostar U-100 Insulin 100 unit/mL (3 mL) Insulin Pen 20 unit SUBCUT HS RF: 0 Discharge Instructions Instructions: Acute Nausea and Vomiting (ED), Dizziness (ED), General Headache (ED) Additional Instructions: Drink plenty of fluids and get plenty of rest. Alternate tylenol and motrin as needed and directed for pain. Take the Compazine as needed and directed for nausea. Call your primary care doctor tomorrow to schedule follow-up appointment for reevaluation and for placement of a residential monitor if your dizziness persists. You will be notified by the emergency department regarding your COVID-19 test result once available. Return immediately to the emergency department if you develop any worsening or new concerning symptoms. Discharge Data Discharge Date/Time-TO BE ENTERED AT DEPARTURE: 05/18/20 18:05 Discharge Physician: Lalita Vail Medical Decision Making 54-year-old male with a history of morbid obesity, diabetes, asthma presents for dizziness, headache and vomiting for the past week. He was seen here last week for the same complaint but left AMA after declined admission for possible TIA. He had been sent down to radiology for CTA head and neck but left after a plain Noncon CT. The Noncon CT head read at this time noted Abnormally enlarged pituitary gland probable adenoma but requiring dedicated pituitary MRI for better evaluation. Review of patient records note that he had a brain MRI in 2009 which noted this pituitary adenoma. Vitals are within normal limits. EKG notes a rate of 77, sinus with no acute ST-T wave ischemic findings. Patient appears nontoxic and in no acute distress. He has no focal deficits. No meningeal signs. Differential diagnosis includes dehydration, electrolyte abnormality, UTI, pneumonia, coronavirus, TIA, CVA, PE, general viral syndrome. Will place an IV, bolus IV fluids, screening labs, CTA head and neck and CT chest to rule out PE. Labs reviewed. White blood cell count 11.95. Lactate normal at 1.1. Troponin negative. Urinalysis negative for infection. CTA head and neck negative for acute findings. CT chest negative for PE or pneumonia. Patient given IV Tylenol, Toradol, Compazine, Benadryl, additional IV fluids and has significant relief of pain and is requesting to go home. Discussed with patient that if his headache did not improve, can consider admission overnight but he is requesting to go home. Also discussed that for his intermittent dizziness, can place a residential monitor but he would rather go home and follow-up with his primary care doctor for this. He has been sitting comfortably on the edge of the bed talking or texting on his phone and appears in no acute distress. Usual and customary return precautions given prior to discharge. Medical Records Medical records reviewed: Yes I reviewed the patient's medical records. Imaging Data Radiologic Study: Radiologist's impression: CT Angiography Head With Contrast Exam date and time: 05/18/2020 3:15 PM Age: 54 years old Clinical indication: Other: Headache, dizziness, R/O acute CVA TECHNIQUE: Imaging protocol: Computed tomography angiography of the head with intravenous contrast. 3D rendering (Not supervised by radiologist): MIP and/or 3D reconstructed images were created by the technologist. Contrast material: OMNIPAQUE 350; Contrast volume: 85 ml; Contrast route: INTRAVENOUS (IV); COMPARISON: CT HEAD WO 05/12/2020 7:52 AM FINDINGS: ANTERIOR CIRCULATION: Right internal carotid artery: Unremarkable. Intracranial segment is patent with no significant stenosis. No aneurysm. Right middle cerebral artery: Unremarkable. No occlusion or significant stenosis. No aneurysm. Right anterior cerebral artery: Unremarkable. No occlusion or significant stenosis. No aneurysm. Left internal carotid artery: Unremarkable. Intracranial segment is patent with no significant stenosis. No aneurysm. Left middle cerebral artery: Unremarkable. No occlusion or significant stenosis. No aneurysm. Left anterior cerebral artery: Unremarkable. No occlusion or significant stenosis. No aneurysm. POSTERIOR CIRCULATION: Right vertebral artery: Unremarkable. No occlusion or significant stenosis. No aneurysm. Left vertebral artery: Unremarkable. No occlusion or significant stenosis. No aneurysm. Basilar artery: Unremarkable. No occlusion or significant stenosis. No aneurysm. Right posterior cerebral artery: Unremarkable. No occlusion or significant stenosis. No aneurysm. Left posterior cerebral artery: Unremarkable. No occlusion or significant stenosis. No aneurysm. Brain: No definite mass, mass effect, or midline shift. Cerebral ventricles: No ventriculomegaly. Bones/joints: Unremarkable. No acute fracture. Soft tissues: Unremarkable. IMPRESSION: No large vessel stenosis or occlusion. CT Angiography Neck With Contrast Exam date and time: 05/18/2020 3:15 PM Age: 54 years old Clinical indication: Other: Headache, dizziness, R/O acute CVA TECHNIQUE: Imaging protocol: Computed tomography angiography of the neck with intravenous contrast. 3D rendering (Not supervised by radiologist): MIP and/or 3D reconstructed images were created by the technologist. Contrast material: OMNIPAQUE 350; Contrast volume: 85 ml; Contrast route: INTRAVENOUS (IV); COMPARISON: CT HEAD WO 05/12/2020 7:52 AM FINDINGS: Right common carotid artery: No stenosis. No dissection or occlusion. Right internal carotid artery: No stenosis of the extracranial segment. No dissection or occlusion. Right external carotid artery: No occlusion or stenosis of the origin. Right vertebral artery: No stenosis. No dissection or occlusion. Left common carotid artery: No stenosis. No dissection or occlusion. Left internal carotid artery: No stenosis of the extracranial segment. No dissection or occlusion. Left external carotid artery: No occlusion or stenosis of the origin. Left vertebral artery: No stenosis. No dissection or occlusion. Bones/joints: No acute fracture. Soft tissues: Normal. No significant soft tissue swelling. IMPRESSION: No stenosis or occlusion. CT Angiography Chest With Contrast Exam date and time: 05/18/2020 2:38 PM Age: 54 years old Clinical indication: Other: Near syncope, R/O acute pe TECHNIQUE: Imaging protocol: Computed tomographic angiography of the chest with intravenous contrast. 3D rendering (Not supervised by radiologist): MIP and/or 3D reconstructed images were created by the technologist. Contrast material: OMNIPAQUE 350; Contrast volume: 100 ml; Contrast route: INTRAVENOUS (IV); COMPARISON: CR CHEST 2 VIEWS PA,LAT 06/07/2017 8:33 PM FINDINGS: Pulmonary arteries: Normal. No pulmonary emboli. Aorta: Unremarkable. No aortic aneurysm. No aortic dissection. Lungs: Unremarkable. No consolidation. No masses. Pleural space: Unremarkable. No pneumothorax. No pleural effusion. Heart: Unremarkable. No cardiomegaly. No pericardial effusion. Lymph nodes: Unremarkable. No enlarged lymph nodes. Liver: Diffuse fat infiltration of the liver. Bones/joints: Unremarkable. No acute fracture. Soft tissues: Unremarkable. IMPRESSION: 1. No pulmonary embolism. 2. Diffuse fatty infiltration of the liver. Lab Data Lab results reviewed: Yes I reviewed the patient's lab results. Labs: Laboratory Tests Range/Units 05/18/20 05/18/20 05/18/20 14:00 14:00 15:00 WBC (4.4-10.8) 10^3/uL 11.95 H RBC (4.36-5.78) 10^6/uL 5.51 Hgb (13.5-17.5) g/dL 14.7 Hct (40.0-50.0) % 45.4 MCV (80-95) fL 82.4 MCH (27.0-33.0) pg 26.7 L MCHC (32.0-36.0) % 32.4 RDW (11.8-14.1) % 13.9 Plt Count (130-400) 10^3/uL 278 MPV (8.0-11.0) fL 9.5 Immature Gran % 0.5 Neutrophils % 65.7 Lymphocytes % 25.9 Monocytes % 6.1 Eosinophils % 1.1 Basophils % 0.7 Nucleated RBC % % 0 Absolute Neutrophils (1.2-6.7) 10^3/uL 7.85 H Absolute Lymphocytes (1.2-3.4) 10^3/uL 3.10 Absolute Monocytes (0.1-0.8) 10^3/uL 0.73 Absolute Eosinophils (0.0-0.7) 10^3/uL 0.13 Absolute Basophils (0.0-0.2) 10^3/uL 0.08 VBG Lactate (0.6-1.4) mmol/L 1.1 Sodium (136-145) mmol/L 138 Potassium (3.5-5.1) mmol/L 3.8 Chloride (98-107) mmol/L 102 Carbon Dioxide (21.0-32.0) mmol/L 25.7 Anion Gap (3-11) mmol/L 10.3 BUN (7-18) mg/dL 16 Creatinine (0.70-1.30) mg/dL 0.95 Estimated GFR/1.73 m2 (mL/min/1.73m2) >= 60.00 Glucose (74-106) mg/dL 123 H Calcium (8.5-10.1) mg/dL 9.0 Magnesium (1.8-2.4) mg/dL 2.1 Total Bilirubin (0.2-1.0) mg/dL 0.3 AST (15-37) U/L 44 H ALT (16-63) U/L 61 Alkaline Phosphatase (46-116) U/L 73 Troponin I (<0.06) ng/mL < 0.05 Total Protein (6.4-8.2) g/dL 7.6 Albumin (3.4-5.0) g/dL 3.5 Urine Color (Yellow) Urine Clarity (Clear) Urine pH (5-8) Ur Specific [place] (1.005-1.025) Urine Protein (Negative) mg/dL Urine Ketones (Negative) mg/dL Urine Blood (Negative) Urine Nitrite (Negative) Urine Bilirubin (Negative) Urine Urobilinogen (Up TO 0.2) EU/dL Ur Leukocyte Esterase (Negative) Urine RBC (0-2) HPF Urine WBC (0-5) HPF Ur Epithelial Cells (Negative) HPF Urine Crystals (Negative) HPF Urine Bacteria (Negative) HPF Urine Casts (Negative) LPF Urine Mucus (Negative) Ur Culture Indicated? Urine Glucose (Negative) mg/dL Range/Units 05/18/20 15:00 WBC (4.4-10.8) 10^3/uL RBC (4.36-5.78) 10^6/uL Hgb (13.5-17.5) g/dL Hct (40.0-50.0) % MCV (80-95) fL MCH (27.0-33.0) pg MCHC (32.0-36.0) % RDW (11.8-14.1) % Plt Count (130-400) 10^3/uL MPV (8.0-11.0) fL Immature Gran % Neutrophils % Lymphocytes % Monocytes % Eosinophils % Basophils % Nucleated RBC % % Absolute Neutrophils (1.2-6.7) 10^3/uL Absolute Lymphocytes (1.2-3.4) 10^3/uL Absolute Monocytes (0.1-0.8) 10^3/uL Absolute Eosinophils (0.0-0.7) 10^3/uL Absolute Basophils (0.0-0.2) 10^3/uL VBG Lactate (0.6-1.4) mmol/L Sodium (136-145) mmol/L Potassium (3.5-5.1) mmol/L Chloride (98-107) mmol/L Carbon Dioxide (21.0-32.0) mmol/L Anion Gap (3-11) mmol/L BUN (7-18) mg/dL Creatinine (0.70-1.30) mg/dL Estimated GFR/1.73 m2 (mL/min/1.73m2) Glucose (74-106) mg/dL Calcium (8.5-10.1) mg/dL Magnesium (1.8-2.4) mg/dL Total Bilirubin (0.2-1.0) mg/dL AST (15-37) U/L ALT (16-63) U/L Alkaline Phosphatase (46-116) U/L Troponin I (<0.06) ng/mL Total Protein (6.4-8.2) g/dL Albumin (3.4-5.0) g/dL Urine Color (Yellow) Yellow Urine Clarity (Clear) Clear Urine pH (5-8) 6.0 Ur Specific [place] (1.005-1.025) 1.020 Urine Protein (Negative) mg/dL 30 H Urine Ketones (Negative) mg/dL Negative Urine Blood (Negative) Trace-intact H Urine Nitrite (Negative) Negative Urine Bilirubin (Negative) Negative Urine Urobilinogen (Up TO 0.2) EU/dL 0.2 Ur Leukocyte Esterase (Negative) Negative Urine RBC (0-2) HPF 0-2 Urine WBC (0-5) HPF 0-2 Ur Epithelial Cells (Negative) HPF Few Urine Crystals (Negative) HPF Negative Urine Bacteria (Negative) HPF Rare Urine Casts (Negative) LPF Negative Urine Mucus (Negative) Negative Ur Culture Indicated? No Urine Glucose (Negative) mg/dL Negative ECG Data Attestation: I personally reviewed and interpreted this ECG (s) as follows: Interpretation: Rate of 77, sinus, no acute ST elevation or depression. ME 157. QRS 89. QTc 413. HPI General Mode of arrival: ambulatory . Date/Time Provider Initiated Documentation: 05/18/20 13:23 . Limitations to Documentation: no limitations . Information obtained by: patient . HPI Narrative: Patient is a 54-year-old male with a history of morbid obesity, asthma, diabetes, kidney stones who presents for a general complaint of something not feeling right for the past week. Patient states symptoms started 1 week ago when he moved from a sitting to standing position in the kitchen and began walking he had an episode of dizziness and near syncope and head shaking. Patient was seen here 1 week ago for these complaints but left AMA and declined admission for possible TIA. Patient states since then he has continued to not feel. He states multiple times that I need to discuss with his what had happened as he does not remember the details. When asked patient the specifics about his symptoms last week, he appears to recall most details and stating that he stood up in his kitchen and walked to the fridge and began to feel dizzy with his head shaking. He states his called EMS and he was able to ambulate upon their arrival. He states he was not happy with his care on his ED visit last week as he complained that his left IV site was painful and he had to wait a long time to go to radiology. He also explained that he heard staff member starting at the nurses station and he felt that this was inappropriate. Patient states that he has continued to not feel well over the past 2 days with dizziness upon standing, diffuse headache, worse in his forehead, nausea with 1-2 episodes of vomiting daily. He states he last vomited yesterday. He denies any known fever, neck pain, chest pain, shortness breath, abdominal pain, diarrhea or urinary symptoms. Related Data Home Medications Medication Instructions Recorded Confirmed albuterol sulfate [ProAir HFA] 2 puff INHALATION Q4H PRN PRN #1 07/31/12 05/18/20 inh glipizide [Glucotrol XL] 10 mg PO BID 07/31/12 05/18/20 metformin 1,000 mg PO DAILY 07/31/12 05/18/20 aspirin 81 mg PO DAILY 07/02/15 05/18/20 Victoza 2-Jesús 1.8 mg . HS 06/07/17 05/18/20 hydrochlorothiazide 25 mg PO QAM 06/07/17 05/18/20 metformin [Glucophage] 1,500 mg PO QAM 06/07/17 05/18/20 Lantus Solostar U-100 Insulin 20 unit SUBCUT HS 05/12/20 05/18/20 losartan 25 mg PO DAILY 05/12/20 05/18/20 prochlorperazine maleate 10 mg PO TID PRN #7 tab 05/18/20 [Compazine] Previous Rx's Medication Instructions Recorded albuterol sulfate [ProAir HFA] 2 puff INHALATION Q4H PRN PRN #1 07/31/12 inh prochlorperazine maleate 10 mg PO TID PRN #7 tab 05/18/20 [Compazine] Allergies Allergy/AdvReac Type Severity Reaction Status Date / Time codeine [Codeine] Allergy Mild Hives Unverified 05/18/20 13:39 lisinopril Allergy Anaphylaxsi Unverified 05/18/20 13:39 s Penicillins Allergy unknown Unverified 05/18/20 13:39 General ASHLEY: 2 Review of Systems All systems reviewed & are unremarkable except as noted in HPI and below Constitutional Constitutional: Reports as per HPI, Denies chills, Denies fever(s) and Reports headache(s) Eyes Eyes: Denies blurry vision ENT Ears, Nose, Mouth, and Throat: Reports dizziness, Reports headache(s), Denies sore throat and Denies throat swelling Cardiovascular Cardiovascular: Denies chest pain and Denies dyspnea Respiratory Respiratory: Denies cough and Denies dyspnea Gastrointestinal Gastrointestinal: Denies abdominal pain, Denies diarrhea and Reports vomiting Genitourinary Genitourinary: Denies hematuria and Denies dysuria Musculoskeletal Musculoskeletal: Denies back pain and Denies numbness Integumentary/Breasts Skin/Breast: Denies lesions and Denies rash Neurologic Neurologic: Reports dizziness, Reports headache(s), Denies localized weakness and Denies numbness Allergic/Immunologic Allergic/Immunologic: Denies throat swelling FOR[facility]LY [facility], [facility] Medical History (Updated 05/18/20 @ 17:50 by Lalita Vail DO) Asthma Diabetes Kidney stones Morbid obesity Surgical History (Updated 05/18/20 @ 15:55 by Lalita Vail DO) History of knee surgery Social History Smoking/Tobacco Use Status: Current every day Tobacco Type: smokeless tobacco Smoking risk assessment performed?: Yes Alcohol Intake: current Alcohol Intake frequency: holidays/special occasions only Drug use: Never Substance use type: does not use Do you feel safe at home: Yes Do you feel safe in your relationship?: Yes Exam Const General: cooperative and no acute distress Orientation: alert, awake and oriented x3 HENMT Head: normal to inspection Ears: hearing grossly normal bilaterally and external ears normal General nose exam: external nose normal Face and sinus: normal facial exam Mouth: oral mucosae normal Teeth and gingiva: dentition normal Throat: posterior oropharynx normal Eyes General: appearance normal, both eyes and all related structures Eyelids: eyelids normal Pupils: PERRL EOM: EOM intact bilaterally Neck Neck: normal visual inspection Lymphatic: no lymphadenopathy noted Chest Chest: normal inspection of the chest Resp Effort & Inspection: normal respiratory effort and able to speak in complete sentences Auscultation: clear to auscultation bilaterally Cardio Rate: regular rate Rhythm: regular rhythm GI Inspection: normal to inspection Palpation: soft, not firm, no guarding, no hepatosplenomegaly, no masses and nontender Auscultation: normal bowel sounds Back/Spine/Pelvis Back: no CVA tenderness Skin General skin exam: no rashes or lesions noted Neuro General: patient alert, patient awake and patient oriented x3 Cranial Nerves: CN's II-XI intact bilaterally Cognition: normal cognition Speech: speech normal Motor: muscle tone normal throughout and strength 5/5 throughout Sensory Exam: no sensory deficits noted Extrem General: normal to inspection, full ROM and capillary refill normal Psych Appearance: grossly normal Mental Status: mental status grossly normal Speech and Movement: speech and movement normal Affect: normal affect Thought Process: normal
[2020-05-18 14:12] LABS: Abs Immature Grans 0.06 10^3/uL (0.0-0.06); Absolute Basophil Count 0.08 10^3/uL (0.0-0.2); Absolute Eosinophil Count 0.13 10^3/uL (0.0-0.7); Absolute Monocyte Count 0.73 10^3/uL (0.1-0.8); Absolute Neutrophil Count 7.85 10^3/uL (1.2-6.7); Basophils % 0.7; Eosinophils % 1.1; HCT 45.4 % (40.0-50.0); HGB 14.7 g/dL (13.5-17.5); Immature Grans % 0.5; Lymphocytes % 25.9; MCH 26.7 pg (27.0-33.0); MCHC 32.4 % (32.0-36.0); MCV 82.4 fL (80-95); MPV 9.5 fL (8.0-11.0); Monocytes % 6.1; Neutrophils % 65.7; Nucleated RBC 0 %; Platelet Count 278 10^3/uL (130-400); RBC 5.51 10^6/uL (4.36-5.78); RDW 13.9 % (11.8-14.1); RDW-SD 41.1 fL; WBC 11.95 10^3/uL (4.4-10.8)
--- NOTE | 2020-05-18 14:30 | DI.CT_ITS ---
EXAM: CT CHEST PE CTA CLINICAL HISTORY: near syncope, r/o acute PE. TECHNIQUE: Imaging Protocol: Axial CT angiography was performed with multi-slice acquisition and mu lti-planar and/or 3D reconstructions. CONTRAST MATERIAL: Intravenous: Omnipaque 350 Contrast volume:100 mL COMPARISON: CT ABD PELVIS WITH CONTRAST from 12/24/[address] BRAIN NECK CTA from 05/18/2020 FINDINGS: Tracheobronchial tree: Patent where visualized. Pulmonary parenchyma: No consolidation or dominant measurable mass. No architectural distortion. Pulmonary Arteries: No evidence of filling defect to suggest pulmonary emboli. Mediastinum and [place]: No dominant adenopathy or fluid collection. Small hiatal hernia. Visualized thyroid gland: There is a 2 cm hypodense partially calcified mass in the superior aspect o f the right thyroid gland. Thyroid ultrasound should be considered for further evaluation. Pleura: No effusion or pneumothorax. Heart: The heart is not dilated. No coronary artery calcifications are seen. No pericardial effusion. Aorta: Thoracic aorta non-dilated. No evidence of dissection. Upper abdomen: Diffuse decreased attenuation of the liver consistent with fatty infiltration. There has been interval increase in size of the left adrenal nodule. It currently measures 2.7 cm compare d with 2.0 cm on the prior examination. Bones: Degenerative changes. Soft tissues: Unremarkable. IMPRESSION: 1. No evidence of pulmonary embolism, thoracic aortic dissection or aneurysm. 2. 2 cm right thyroid nodule. Thyroid ultrasound may be considered for further evaluation. 3. Interval increase in size of the left adrenal nodule since 2013. Follow-up as clinically appropri ate. 4. Hepatic steatosis. RADIATION DOSE DELIVERED: 659.36mGy.cm Total DLP DATA REPOSITORY: All CT scans at this facility are submitted to the National Radiology Data Registry (NRDR) Dose Index Registry (DIR) with the [employer] (ACR). RADIATION OPTIMIZATION: All CT scans at this facility use at least one of these dose optimization te chniques: automated exposure control; mA and/or kV adjustment per patient size (includes targeted exa ms where dose is matched to clinical indication); or iterative reconstruction.
[2020-05-18 14:34] LABS: ALT 61 U/L (16-63); AST 44 U/L (15-37); Albumin 3.5 g/dL (3.4-5.0); Alkaline Phosphatase 73 U/L (46-116); Anion Gap 10.3 mmol/L (3-11); BUN 16 mg/dL (7-18); Bilirubin, Total 0.3 mg/dL (0.2-1.0); CO2 25.7 mmol/L (21.0-32.0); CREATININE 0.95 mg/dL (0.70-1.30); Chloride 102 mmol/L (98-107); Glucose 123 mg/dL (74-106); Magnesium 2.1 mg/dL (1.8-2.4); Potassium 3.8 mmol/L (3.5-5.1); Sodium 138 mmol/L (136-145); Total Protein 7.6 g/dL (6.4-8.2)
--- NOTE | 2020-05-18 14:35 | DI.CT_ITS ---
EXAM: CT BRAIN NECK CTA CLINICAL HISTORY: headache, dizziness, r/o acute cva. TECHNIQUE: Imaging Protocol: Axial CT angiography was performed with multi-slice acquisition and mu lti-planar and/or 3D reconstructions. CONTRAST MATERIAL: Intravenous: Omnipaque 350 Contrast volume:85 mL COMPARISON: CT CT HEAD WO from 05/12/2020 FINDINGS: CT Head W/O: Ventricles and Extra axial spaces: Normal in size and morphology for the patient's age. Hemorrhage: None. Cerebral parenchyma: No evidence of an acute territorial infarct. Midline shift: None. Brainstem/Cerebellum: There is again seen an enlarged pituitary gland likely reflecting an adenoma. Calvarium: Normal. Visualized Paranasal sinuses/Mastoids: Clear. Soft Tissues: Unremarkable. CTA Brain W: Internal Carotid Arteries: Petrous: Normal. Cavernous: Normal. Cerebral: Normal. Anterior Cerebral Arteries: Right: No aneurysm, occlusion or significant stenosis. Left: No aneurysm, occlusion or significant stenosis. Middle Cerebral Arteries: Right: No aneurysm, occlusion or significant stenosis. Left: No aneurysm, occlusion or significant stenosis. Posterior cerebral Arteries: Right: No aneurysm, occlusion or significant stenosis. The right posterior cerebral artery arises fr om the right posterior communicating artery which is a normal variant. Left: No aneurysm, occlusion or significant stenosis. Vertebral Arteries: Right: No aneurysm, occlusion or significant stenosis. Left: No aneurysm, occlusion or significant stenosis. Basilar Artery: No aneurysm, occlusion or significant stenosis. CTA Neck W: Common Carotid: Right: No dissection, occlusion or significant stenosis. Left: No dissection, occlusion or significant stenosis. External Carotid: Right: No occlusion or significant stenosis. Left: No occlusion or significant stenosis. Internal Carotid: Right: No dissection, occlusion or significant stenosis. Left: No dissection, occlusion or significant stenosis. The left internal carotid artery has a retro pharyngeal location. Vertebral Artery: Right: No dissection, occlusion or significant stenosis. Left: No dissection, occlusion or significant stenosis. Lung Apices: Normal. Bones: Degenerative changes are seen in the cervical spine. Soft Tissues: There is a 2 cm partially calcified mass in the right lobe of the thyroid gland. Thyro id ultrasound may be considered for further evaluation. IMPRESSION: 1. Normal CTA examination of the [place]. 2. No acute intracranial process. 3. Pituitary mass which may represent an adenoma. MRI without and with contrast of the pituitary gla nd should be considered for further evaluation. 4. Normal CTA examination of the neck. 5. 2 cm partially calcified mass in the right lobe of the thyroid gland. Thyroid ultrasound may be c onsidered for further evaluation. RADIATION DOSE DELIVERED: 1,257.34mGy.cm Total DLP DATA REPOSITORY: All CT scans at this facility are submitted to the National Radiology Data Registry (NRDR) Dose Index Registry (DIR) with the [employer] (ACR). RADIATION OPTIMIZATION: All CT scans at this facility use at least one of these dose optimization te chniques: automated exposure control; mA and/or kV adjustment per patient size (includes targeted exa ms where dose is matched to clinical indication); or iterative reconstruction.
[2020-05-18 14:38] LABS: Troponin I < 0.05 ng/mL (<0.06)
[2020-05-18] MEDS: Normal Saline 250 ML 500 ML IV ×2 (15:05→16:54)
[2020-05-18] MEDS: Dexamethasone 10 MG/ML VIAL IVP (15:05)
[2020-05-18 15:07] LABS: Lactate 1.1 mmol/L (0.6-1.4)
[2020-05-18 15:14] LABS: Bilirubin Negative (Negative); Blood Trace-intact (Negative); Clarity Clear (Clear); Glucose Negative (Negative); Ketones Negative (Negative); Leukocyte Esterase Negative (Negative); Nitrite Negative (Negative); Urobilinogen 0.2 EU/dL (Up TO 0.2)
[2020-05-18] MEDS: Omnipaque 350 MG/ML 100 ML BTL 85 ML IJ ×2 (15:16→15:32)
[2020-05-18 15:25] LABS: Bacteria Rare HPF (Negative); C & S Indicated? No; Casts Negative LPF (Negative); Crystals Negative HPF (Negative); Epithelial Cells Few HPF (Negative); Mucus Negative (Negative); RBC 0-2 HPF (0-2); WBC 0-2 HPF (0-5)
[2020-05-18] MEDS: Normal Saline - Diluent 50 ML VIAL IV ×2 (15:27→15:31)
--- NOTE | 2020-05-18 16:02 | DI.VRAD_ITS ---
PROCEDURE INFORMATION: Exam: CT Angiography Chest With Contrast Exam date and time: 05/18/2020 2:38 PM Age: 54 years old Clinical indication: Other: Near syncope, R/O acute pe TECHNIQUE: Imaging protocol: Computed tomographic angiography of the chest with intravenous contrast. 3D rendering (Not supervised by radiologist): MIP and/or 3D reconstructed images were created by the technologist. Contrast material: OMNIPAQUE 350; Contrast volume: 100 ml; Contrast route: INTRAVENOUS (IV); COMPARISON: CR CHEST 2 VIEWS PA,LAT 06/07/2017 8:33 PM FINDINGS: Pulmonary arteries: Normal. No pulmonary emboli. Aorta: Unremarkable. No aortic aneurysm. No aortic dissection. Lungs: Unremarkable. No consolidation. No masses. Pleural space: Unremarkable. No pneumothorax. No pleural effusion. Heart: Unremarkable. No cardiomegaly. No pericardial effusion. Lymph nodes: Unremarkable. No enlarged lymph nodes. Liver: Diffuse fat infiltration of the liver. Bones/joints: Unremarkable. No acute fracture. Soft tissues: Unremarkable. IMPRESSION: 1. No pulmonary embolism. 2. Diffuse fatty infiltration of the liver. Dictated and Authenticated by: Jone Redman MD. Ordering:PRATEEK Celis MD
--- NOTE | 2020-05-18 16:36 | DI.VRAD_ITS ---
PROCEDURE INFORMATION: Exam: CT Angiography Head With Contrast Exam date and time: 05/18/2020 3:15 PM Age: 54 years old Clinical indication: Other: Headache, dizziness, R/O acute CVA TECHNIQUE: Imaging protocol: Computed tomography angiography of the head with intravenous contrast. 3D rendering (Not supervised by radiologist): MIP and/or 3D reconstructed images were created by the technologist. Contrast material: OMNIPAQUE 350; Contrast volume: 85 ml; Contrast route: INTRAVENOUS (IV); COMPARISON: CT HEAD WO 05/12/2020 7:52 AM FINDINGS: ANTERIOR CIRCULATION: Right internal carotid artery: Unremarkable. Intracranial segment is patent with no significant stenosis. No aneurysm. Right middle cerebral artery: Unremarkable. No occlusion or significant stenosis. No aneurysm. Right anterior cerebral artery: Unremarkable. No occlusion or significant stenosis. No aneurysm. Left internal carotid artery: Unremarkable. Intracranial segment is patent with no significant stenosis. No aneurysm. Left middle cerebral artery: Unremarkable. No occlusion or significant stenosis. No aneurysm. Left anterior cerebral artery: Unremarkable. No occlusion or significant stenosis. No aneurysm. POSTERIOR CIRCULATION: Right vertebral artery: Unremarkable. No occlusion or significant stenosis. No aneurysm. Left vertebral artery: Unremarkable. No occlusion or significant stenosis. No aneurysm. Basilar artery: Unremarkable. No occlusion or significant stenosis. No aneurysm. Right posterior cerebral artery: Unremarkable. No occlusion or significant stenosis. No aneurysm. Left posterior cerebral artery: Unremarkable. No occlusion or significant stenosis. No aneurysm. Brain: No definite mass, mass effect, or midline shift. Cerebral ventricles: No ventriculomegaly. Bones/joints: Unremarkable. No acute fracture. Soft tissues: Unremarkable. IMPRESSION: No large vessel stenosis or occlusion. PROCEDURE INFORMATION: Exam: CT Angiography Neck With Contrast Exam date and time: 05/18/2020 3:15 PM Age: 54 years old Clinical indication: Other: Headache, dizziness, R/O acute CVA TECHNIQUE: Imaging protocol: Computed tomography angiography of the neck with intravenous contrast. 3D rendering (Not supervised by radiologist): MIP and/or 3D reconstructed images were created by the technologist. Contrast material: OMNIPAQUE 350; Contrast volume: 85 ml; Contrast route: INTRAVENOUS (IV); COMPARISON: CT HEAD WO 05/12/2020 7:52 AM FINDINGS: Right common carotid artery: No stenosis. No dissection or occlusion. Right internal carotid artery: No stenosis of the extracranial segment. No dissection or occlusion. Right external carotid artery: No occlusion or stenosis of the origin. Right vertebral artery: No stenosis. No dissection or occlusion. Left common carotid artery: No stenosis. No dissection or occlusion. Left internal carotid artery: No stenosis of the extracranial segment. No dissection or occlusion. Left external carotid artery: No occlusion or stenosis of the origin. Left vertebral artery: No stenosis. No dissection or occlusion. Bones/joints: No acute fracture. Soft tissues: Normal. No significant soft tissue swelling. IMPRESSION: No stenosis or occlusion. REFERENCES: NASCET CRITERIA. The degree of internal carotid artery stenosis is based on NASCET criteria. Normal is no stenosis. Mild is less than 50% stenosis. Moderate is 50-69% stenosis. Severe is 70% to 99% stenosis. Total occlusion is no detectable patent lumen. Dictated and Authenticated by: Jone Redman MD. Ordering:PRATEEK Celis MD
[2020-05-18] MEDS: Ketorolac 30 MG/ML VIAL IVP (16:53)
[2020-05-18] MEDS: Prochlorperazine 10 MG/2 ML VIAL IVP (16:53)
[2020-05-18] MEDS: ACETAMINOPHEN 1,000 MG/100 ML BTL 400 MG IVPB (16:53)
[2020-05-18] MEDS: diphenhydrAMINE 50 MG/ML VIAL 25 MG IVP (16:54)
[2020-05-20 12:40] LABS: COVID-19 RT-PCR UVMMC Result Negative (Negative)
--- NOTE | 2020-05-20 18:16 | NUR.NOTE ---
Nursing Note: 1819--Gil was notified of Negative Covid test result. Verbalizes understanding.
== END 2020-05-18 18:05 | disposition home or self-care (01) ==
PROVIDERS: Emergency Provider Physician Assistant; PCP Specialist/Technologist Athletic Trainer
DX: R42 Dizziness and giddiness (principal); R11.0 Nausea; R51.9 Headache, unspecified; Z03.818 Encounter for observation for suspected exposure to other biological agents ruled out
CPT/HCPCS: 36415; 70496; 70498; 71275; 80053; 93005; 96361; 96365; 96375; 99285; U0003; 81003; 81015; 83605; 83735; 84484; 85025; 93010; J0131; J0780; J1100; J1200; J1885; J3490

== ENCOUNTER 2020-05-31 22:49 | Emergency (ER) | payer OTHER, SELFPAY ==
[2020-05-31 22:55] VITALS: BP 154/101; PULSE 79; RESP 16; TEMP 36.2; O2SAT 97
--- NOTE | 2020-05-31 23:03 | W.ED.GENAD ---
Discharge Plan Disposition Patient Disposition: HOME Condition: Good Discharge Details Clinical Impression: Christine Primary Care Provider: Mirna Vicente ED Provider: Julio C Chen Home Meds and New Rx's Prescriptions: Continued metformin 850 MG tablet 1,000 mg PO DAILY RF: 0 glipizide [Glucotrol XL] 10 MG tablet extended release 24hr 10 mg PO BID RF: 0 albuterol sulfate [ProAir HFA] 1 PUFF HFA aerosol inhaler 2 puff Inhalation Q4H PRN PRNQty: 1 RF: 0 aspirin 81 MG tablet,chewable 81 mg PO DAILY RF: 0 metformin [Glucophage] 1,000 MG tablet 1,500 mg PO QAM RF: 0 hydrochlorothiazide 12.5 MG capsule 25 mg PO QAM RF: 0 Victoza 2-Jesús 0.6 MG/0.1 ML pen injector 1.8 mg . HS RF: 0 losartan 25 mg Tablet 25 mg PO DAILY RF: 0 Lantus Solostar U-100 Insulin 100 unit/mL (3 mL) Insulin Pen 20 unit SUBCUT HS RF: 0 prochlorperazine maleate [Compazine] 10 mg tablet 10 mg PO TID PRN (Reason: nausea and vomiting) Qty: 7 RF: 0 Discharge Instructions Instructions: Tremors (ED) Additional Instructions: At this time your neurologic exam is very reassuring. There is currently no clinical evidence of pathology requiring emergent transfer for imaging. The episodes that you keep having may be related to what is called a focal seizure, or may be secondary to other issues in the brain which the MRI will help evaluate. It is very important that you follow-up closely with neurology. We will place a referral for evaluation by our neurologist here. If you notice any worsening of your symptoms, or any new symptoms such as vomiting, diarrhea, fever, chills, shortness of breath, chest pain, numbness, weakness, or fainting , please return immediately to the emergency department for reevaluation. If you have any symptoms of concern do not hesitate to contact me in the emergency department and we can discuss your symptoms. Please follow up with your primary care provider as soon as possible for reassessment and reevaluation. As always, it was a pleasure participating in your medical care today. Referrals: Mirna Vicente [Primary Care Provider] - Discharge Data Discharge Date/Time-TO BE ENTERED AT DEPARTURE: 05/31/20 23:35 Medical Decision Making <Julio C Chen DO - Last Filed: 05/31/20 23:46> 54-year-old male with a past medical history of hypertension, type 2 diabetes, reactive airway disease, and history of migraines presents today for evaluation of occasional tremor on the right side of his body. Patient was seen initially on 05/12/2020 for evaluation of tremor and weakness and syncope. Where he had an additional negative cardiac work-up, was signed out to a colleague, and then let AGAINST MEDICAL ADVICE and refused the CTA of his head. He felt better at that time. He then came back on 05/18, had a negative CTA of the head and negative CT of the chest, there was an incidental finding of a pituitary lesion, which did appear to be present on prior MRI from 2009. He did follow-up with his primary care provider and a neurology referral was placed for [facility], as well as the beginnings of scheduling for an MRI. Since then the patient has noticed that he has continued to have intermittent shaking in his right upper extremity and right lower extremity, it usually lasts for a few seconds to a few minutes. It occurs randomly throughout the day, there is not appear to be any particular aggravating or relieving factors. He does admit to continued intermittent headache. He states that he also has been having increased difficulty with ambulation and occasional tripping and falling, stating that he feels like his feet get caught on him while he walks. Additionally he states that in the last 24 hours his also left him, and he has been dealing with a fall out of this. Patient denies any current severe headache, he denies any current shaking at this time. He denies any repeat episodes of syncope. He denies any IV or illicit drug use, alcohol use, or any new significant trauma. No other complaints at this time. No other modifying factors. Physical exam is unremarkable, no focal neurologic deficits, no ataxia, no evidence of significant cerebellar dysfunction on exam. I had a very long discussion with the patient, we spent a great deal of time discussing the images that have been taking, and the work-up that has been reported that has been negative. Discussed the importance of the MRI, as well as neurology follow-up. Currently it is both the evening and the weekend, and no MRI is available over the weekend or now. That being said I do not see any indication for an emergent MRI at this time. I did discuss repeating the test that he has had, I do not see an indication for it currently, he agrees with it being reasonable to hold off for the time being. At this time I do feel that the patient can be discharged but I do feel there are few things that we can help him with. We will place a neurology referral for here with Dr. Castillo for expedited evaluation. I differential includes just a tremor versus potential focal seizure. His symptoms appear inconsistent with TIA or stroke. Especially in conjunction with the multiple negative imaging studies. We will also recommend expedition of his MRI that his family doctor is scheduling at this time. I discussed in depth with the patient that it is also very reasonable to call me here in the ED over the next 5 days but I am working if he has any questions or concerns we will can discuss it. We did attempt multiple times to contact his significant other at his request, however these calls were unanswered. I have extensively reviewed the treatment plan and discharge instructions with the patient. I have addressed all patient concerns at this time. The patient was made aware of what symptoms to monitor for that would warrant a return to the emergency department. Discussed the plan with the patient, they demonstrate verbal understanding and agreement with our assessment and plan at this time. The documentation in this chart was dictated using [employer] dictation software. Please excuse any dictation errors. HPI <Julio C Chen, - Last Filed: 05/31/20 23:46> General Date/Time Provider Initiated Documentation: 05/31/20 22:50. HPI Narrative: 54-year-old male with a past medical history of hypertension, type 2 diabetes, reactive airway disease, and history of migraines presents today for evaluation of occasional tremor on the right side of his body. Patient was seen initially on 05/12/2020 for evaluation of tremor and weakness and syncope. Where he had an additional negative cardiac work-up, was signed out to a colleague, and then let AGAINST MEDICAL ADVICE and refused the CTA of his head. He felt better at that time. He then came back on 05/18, had a negative CTA of the head and negative CT of the chest, there was an incidental finding of a pituitary lesion, which did appear to be present on prior MRI from 2009. He did follow-up with his primary care provider and a neurology referral was placed for [facility], as well as the beginnings of scheduling for an MRI. Since then the patient has noticed that he has continued to have intermittent shaking in his right upper extremity and right lower extremity, it usually lasts for a few seconds to a few minutes. It occurs randomly throughout the day, there is not appear to be any particular aggravating or relieving factors. He does admit to continued intermittent headache. He states that he also has been having increased difficulty with ambulation and occasional tripping and falling, stating that he feels like his feet get caught on him while he walks. Additionally he states that in the last 24 hours his also left him, and he has been dealing with a fall out of this. Patient denies any current severe headache, he denies any current shaking at this time. He denies any repeat episodes of syncope. He denies any IV or illicit drug use, alcohol use, or any new significant trauma. No other complaints at this time. No other modifying factors. Related Data Home Medications Medication Instructions Recorded Confirmed albuterol sulfate [ProAir HFA] 2 puff INHALATION Q4H PRN PRN #1 07/31/12 05/31/20 inh glipizide [Glucotrol XL] 10 mg PO BID 07/31/12 05/31/20 metformin 1,000 mg PO DAILY 07/31/12 05/31/20 aspirin 81 mg PO DAILY 07/02/15 05/31/20 Victoza 2-Jesús 1.8 mg . HS 06/07/17 05/18/20 hydrochlorothiazide 25 mg PO QAM 06/07/17 05/31/20 metformin [Glucophage] 1,500 mg PO QAM 06/07/17 05/31/20 Lantus Solostar U-100 Insulin 20 unit SUBCUT HS 05/12/20 05/18/20 losartan 25 mg PO DAILY 05/12/20 05/31/20 prochlorperazine maleate 10 mg PO TID PRN #7 tab 05/18/20 [Compazine] Previous Rx's Medication Instructions Recorded albuterol sulfate [ProAir HFA] 2 puff INHALATION Q4H PRN PRN #1 07/31/12 inh prochlorperazine maleate 10 mg PO TID PRN #7 tab 05/18/20 [Compazine] Allergies Allergy/AdvReac Type Severity Reaction Status Date / Time codeine [Codeine] Allergy Mild Hives Unverified 05/31/20 23:04 lisinopril Allergy Anaphylaxsi Unverified 05/31/20 23:04 s Penicillins Allergy unknown Unverified 05/31/20 23:04 <Omid Jones MD - Last Filed: 06/29/20 14:06> General ASHLEY: 3 Review of Systems <Julio C Chen DO - Last Filed: 05/31/20 23:46> All systems reviewed & are unremarkable except as noted in HPI and below PFSH <Julio C Chen DO - Last Filed: 05/31/20 23:46> Medical History Asthma Diabetes Kidney stones Morbid obesity Surgical History History of knee surgery Social History Smoking/Tobacco Use Status: Current every day Tobacco Type: smokeless tobacco Smoking risk assessment performed?: Yes Alcohol Intake: current Alcohol Intake frequency: holidays/special occasions only Drug use: Never Substance use type: does not use Do you feel safe at home: Yes Do you feel safe in your relationship?: Yes Exam <Julio C Chen DO - Last Filed: 05/31/20 23:46> Narrative Exam Narrative: 1.Const: Well-nourished, Well-developed, appearing stated age 2.Eyes: PERRL, no conjunctival injection, and symmetrical lids. 3.ENT: Atraumatic external nose and ears. Moist MM. Neck: Symmetric, trachea midline, No thyromegaly. 4.CVS: +S1/S2, No murmurs or gallops. Peripheral pulses 2+ and equal in all extremities. Brisk capillary refill in all extremities. 5.RESP: Unlabored respiratory effort. Clear to auscultation bilaterally. No wheezes rales or rhonchi 6.GI: Soft, Nontender/Nondistended, No hepatosplenomegaly. No guarding or rebound. 7.MSK: Normocephalic/Atraumatic, Extremities w/o deformity or ttp No cyanosis or clubbing, Normal movement of all extremities 8.Skin: Warm, Dry. No rashes or lesions. 9.Neuro: manual arts therapist II-XII grossly intact. Sensation grossly intact, no focal neurologic deficits. All 6 cardinal planes of vision are fully intact. No evidence of rotatory or vertical nystagmus. The patient demonstrated a normal hwcmoc-qbej-lptuwp, good dexterity. There was no evidence of dysdiadochokinesia. Patient was able to ambulate without difficulty. There was no wide-based gait. Romberg testing was normal. Cerl-wk-iliw testing was normal. Sensation was intact bilaterally as well as muscle strength bilaterally for all extremities. Patient was able to verbalize butter cup with no slurring, or miss pronunciation. Cerebellar function testing is normal. The patient demonstrates a normal hints exam with no findings concerning for a central event. No vertical nystagmus. The head impulse test is negative for any significant central abnormality. Normal test of skew. No suggestion of a central cerebellar event. 10.Psych: (AAO) x3. Appropriate mood and affect
[2020-05-31 23:08] VITALS: BP 152/84
--- NOTE | 2020-05-31 23:29 | NUR.NOTE ---
Nursing Note:referal sent to neorology 05/31/20
== END 2020-05-31 23:35 | disposition home or self-care (01) ==
PROVIDERS: Emergency Provider Student in an Organized Health Care Education/Training Program; PCP Nurse Practitioner Family
DX: R25.1 Tremor, unspecified (principal); R51.9 Headache, unspecified
CPT/HCPCS: 99282; 99283

== ENCOUNTER 2020-06-16 00:31 | Outpatient (CLI) | payer OTHER, SELFPAY ==
--- NOTE | 2020-06-16 | DI.MRI_ITS ---
EXAM: MR BRAIN PITUITARY WO/W CLINICAL HISTORY: HEADACHE,R51.9,SYNCOPE,R55 TECHNIQUE: Multiplanar multisequence MRI of the brain was performed. Pituitary protocol used. Both pre and post contrast views sequences were performed. Amount of contrast injected was 20 cc Dotarem COMPARISON: CT CT BRAIN NECK CTA from 05/18/2020 FINDINGS: CEREBRAL PARENCHYMA: There is no evidence of intracranial hemorrhage. There is no significant focal signal abnormality in the cerebellar hemispheres nor within the ramirez, m idbrain, and thalami. There is no abnormal signal abnormality in the periventricular white matter. No ring-enhancing lesions in the brain. PITUITARY GLAND: There is a prominent mass filling the pituitary fossa and extending up into the supr asellar cistern and impinging upon the optic chiasm. The pituitary infundibulum is either thickened as part of this mass or displaced-not seen. This pituitary fossa mass measures 1.8 cm cephalocaudal by 1.2 cm wide by 1.4 centimeter AP the main part of this mass does not enhance on these sequences. The of the there is enhancement of the most posterior aspect of the enlarged pituitary. The normal p osterior neurohypophysis non contrast T1 bright signal is not seen. The mass does not extend into th e retro sellar-prepontine cistern. There is thinning of the floor of the sella but without breakthro ugh into the superior aspect of the sphenoid sinus. FLOW VOIDS: Cavernous sinuses appear unremarkable as do the adjacent intracavernous and supraclinoid internal carotid arteries. No aneurysm is evident. PARANASAL SINUSES: The visualized paranasal sinuses appear unremarkable. No obvious finding ORBITS: No obvious findings. 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 Althou gh this has the gross appearance of a pituitary adenoma, the signal and enhancement characteristics a re not typical of a pituitary adenoma and the infundibulum is difficult isolated as a separate struct ure from the thickened part of the gland. Given the findings here there is a possibly that the origi n of this mass is from the neurohypophysis/posterior pituitary gland aspect. There is no invasion of the cavernous sinuses nor of the sphenoid sinus although there is thinning of the floor of the sella as well as the dorsum sella. Giving the impression upon the optic chiasm, correlation with any clinical findings of bitemporal hem ianopsia is recommended. DATA REPOSITORY:
[2020-06-16] MEDS: Normal Saline Flush 10 ML SYR IVP (14:18)
[2020-06-16] MEDS: Gadoterate meglumine 20 ML VIAL IVP (14:20)
== END 2020-06-16 00:32 ==
LOC: DI 00:31
PROVIDERS: PCP Nurse Practitioner Family; Visit Provider Nurse Practitioner Family
DX: R51.9 Headache, unspecified (principal); R55 Syncope and collapse; E23.6 Other disorders of pituitary gland
CPT/HCPCS: 70553

== ENCOUNTER 2020-07-28 11:27 | Outpatient (CLI) | payer OTHER, SELFPAY ==
--- NOTE | 2020-08-15 08:34 | ZIOP_ITS ---
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 Average heart rate was 83, minimum 62, maximum 134. There were rare atrial premature beats. There were several brief atrial runs, the longest of which was 10 beats in duration There were frequent ventricular ectopic beats comprising 10.3% of total. There were moderately frequent couplets There was a 19 beat run of ventricular tachycardia. Accelerated idioventricular rhythm was noted There was no atrial fibrillation, no pauses greater than 3 seconds, no high- grade AV block Patient reported symptoms corresponded to sinus rhythm with PVCs
== END 2020-07-28 11:28 | disposition home or self-care (01) ==
LOC: RT 11:28
PROVIDERS: PCP Nurse Practitioner Family; Visit Provider Psychiatry & Neurology Neurology
DX: I49.8 Other specified cardiac arrhythmias (principal)
CPT/HCPCS: 93246

== ENCOUNTER 2020-09-02 11:46 | Emergency (ER) | payer OTHER, SELFPAY ==
--- NOTE | 2020-09-02 11:45 | RT.EKG_ITS ---
APPROVED REPORT Exam: Resting ECG Reason for Exam: s/p seizure nausa Patient Location: E HR:78 bpm ECG Measurements Heart Rate 78 AXIS WY 159 P 41 QRSd 86 QRS 19 QT 367 T 29 QTc 419 Conclusion Sinus rhythm...normal P axis, V-rate 60- 99
[2020-09-02 11:53] VITALS: BP 114/80; PULSE 79; RESP 18; TEMP 35.2; O2SAT 96
[2020-09-02] MEDS: Prochlorperazine 10 MG/2 ML VIAL IVP (12:24)
[2020-09-02] MEDS: Normal Saline 1,000 ML 1000 ML IV (12:24)
[2020-09-02 12:25] LABS: Abs Immature Grans 0.14 10^3/uL (0.0-0.06); Absolute Basophil Count 0.11 10^3/uL (0.0-0.2); Absolute Lymphocyte Count 2.02 10^3/uL (1.2-3.4); Basophils % 0.9; Eosinophils % 1.2; HCT 51.3 % (40.0-50.0); HGB 16.4 g/dL (13.5-17.5); Immature Grans % 1.2; Lymphocytes % 16.7; MCH 27.3 pg (27.0-33.0); MCV 85.4 fL (80-95); MPV 9.1 fL (8.0-11.0); Monocytes % 6.6; Neutrophils % 73.4; Nucleated RBC 0 %; Platelet Count 335 10^3/uL (130-400); RBC 6.01 10^6/uL (4.36-5.78); RDW 14.6 % (11.8-14.1); RDW-SD 45.4 fL; WBC 12.11 10^3/uL (4.4-10.8)
[2020-09-02 12:29] LABS: Absolute Eosinophil Count 0.15 10^3/uL (0.0-0.7); Absolute Neutrophil Count 8.89 10^3/uL (1.2-6.7)
[2020-09-02 12:35] LABS: ALT 30 U/L (16-63); AST 39 U/L (15-37); Albumin 1.2 g/dL (3.4-5.0); Alkaline Phosphatase 86 U/L (46-116); Anion Gap 9.2 mmol/L (3-11); BUN 17 mg/dL (7-18); Bilirubin, Total 0.1 mg/dL (0.2-1.0); CO2 24.8 mmol/L (21.0-32.0); Calcium 8.6 mg/dL (8.5-10.1); Chloride 106 mmol/L (98-107); Glucose 135 mg/dL (74-106); Potassium 4.1 mmol/L (3.5-5.1); Sodium 140 mmol/L (136-145); Total Protein 6.5 g/dL (6.4-8.2)
--- NOTE | 2020-09-02 12:56 | ED.GENADUL_ITS ---
Discharge Plan Disposition Patient Disposition: HOME Condition: Stable Discharge Details Clinical Impression: Seizure-like activity Primary Care Provider: Mirna Vicente ED Provider: Chad Lemus Home Meds and New Rx's Prescriptions: Continued Emgality Pen 120 mg/mL pen injector 240 mg subcut ONCE Qty: 2 RF: 0 metformin [Glucophage] 500 mg tablet 500 mg PO DAILY RF: 0 cyclobenzaprine 10 mg tablet 10 mg PO HS PRNRF: 0 loratadine 10 mg tablet 10 mg PO DAILY RF: 0 glipizide [Glucotrol XL] 10 MG tablet extended release 24hr 10 mg PO BID RF: 0 albuterol sulfate [ProAir HFA] 1 PUFF HFA aerosol inhaler 2 puff Inhalation Q4H PRN PRNQty: 1 RF: 0 aspirin 81 MG tablet,chewable 81 mg PO DAILY RF: 0 hydrochlorothiazide 12.5 MG capsule 25 mg PO QAM RF: 0 Victoza 2-Jesús 0.6 MG/0.1 ML pen injector 1.8 mg . DAILY AM RF: 0 losartan 25 mg Tablet 25 mg PO DAILY RF: 0 Lantus Solostar U-100 Insulin 100 unit/mL (3 mL) Insulin Pen 22 unit SUBCUT HS RF: 0 prochlorperazine maleate [Compazine] 10 mg tablet 10 mg PO TID PRN (Reason: nausea and vomiting) Qty: 7 RF: 0 furosemide 40 mg tablet 40 mg PO DAILY RF: 0 potassium chloride 10 mEq tablet extended release PO RF: 0 potassium chloride 10 mEq tablet extended release 10 meq PO DAILY AM RF: 0 sertraline 25 mg tablet 25 mg PO DAILY RF: 0 Discharge Instructions Instructions: Recurrent Seizures in Adults (ED) Additional Instructions: At this time your laboratory values, urinalysis and chest x-ray did not reveal any obvious emergent process. I discussed the case with your neurologist, Dr. Troy Restrepo. She is aware of your visit here in the ER today, work-up that occurred, and believes that discharge from the ER is reasonable. She does not want to start you on any oral medications and would like you to get an EEG like she discussed with you during your visit this morning. I would contact her office tomorrow to discuss your ER visit and need for outpatient reevaluation. Please watch for new or worsening symptoms and return to the ER for any concerns. Medical Decision Making 54-year-old gentleman presents having had another episode. Patient unable to give me much information as he states he cannot recall exactly what happened, most of the HPI is secondhand from what he was told by his son and via EMS. Patient reports nausea now but is otherwise asymptomatic. I was able to review the patient's multiple ER visits and assessment through neurology. He has had thorough work-up, CT imaging of head, CTA of head and neck, brain MRI, Holter monitor, and is in the process of being set up with the EEG. MRI did reveal a pituitary adenoma, he is in the process of being set up with ophthalmology. Patient reports nausea is otherwise asymptomatic. Clinically he appears well, nontoxic and is neurologically intact. Patient was evaluated by neurology, Dr. Whitehead this morning. Will obtain IV access, give IV Compazine as patient reports this is helped in the past, obtain routine laboratory values and reassess. Given his multiple imaging modalities of his brain recently, I see no indication to repeat this today. Patient was given Compazine and reports that he is now asymptomatic, back to baseline. Laboratory values reveal mild nonspecific leukocytosis of 12.11 hemoglobin 16.5 hematocrit 51.3 platelet count 335. Electrolytes unremarkable. GFR greater than 60, glucose 135 Patient is neurologically intact, work-up does not reveal any obvious emergent process. I will consult with Dr. Whitehead who knows the patient well. She was aware of the patient's ER visit today, work-up, and has no additional recommendations. She does not believe that initiating any medication at this time is necessary. Before any medication is initiated she would like to obtain the EEG as an outpatient. She will have her office reach out to the patient to help expedite outpatient care. This conversation was relayed to the patient, he has no additional questions or concerns and is comfortable discharge at this time. Medical Records Medical records reviewed: Yes I reviewed the patient's medical records. Imaging Data Radiologic Study: Attestation: I personally reviewed and interpreted this imaging study as follows: Imaging: X-Ray Radiologist's impression: Chest x-ray negative Lab Data Lab results reviewed: Yes I reviewed the patient's lab results. Labs: Laboratory Tests Range/Units 09/02/20 09/02/20 09/02/20 12:00 12:00 14:00 WBC (4.4-10.8) 10^3/uL 12.11 H RBC (4.36-5.78) 10^6/uL 6.01 H Hgb (13.5-17.5) g/dL 16.4 Hct (40.0-50.0) % 51.3 H MCV (80-95) fL 85.4 MCH (27.0-33.0) pg 27.3 MCHC (32.0-36.0) % 32.0 RDW (11.8-14.1) % 14.6 H Plt Count (130-400) 10^3/uL 335 MPV (8.0-11.0) fL 9.1 Immature Gran % 1.2 Neutrophils % 73.4 Lymphocytes % 16.7 Monocytes % 6.6 Eosinophils % 1.2 Basophils % 0.9 Nucleated RBC % % 0 Absolute Neutrophils (1.2-6.7) 10^3/uL 8.89 H Absolute Lymphocytes (1.2-3.4) 10^3/uL 2.02 Absolute Monocytes (0.1-0.8) 10^3/uL 0.80 Absolute Eosinophils (0.0-0.7) 10^3/uL 0.15 Absolute Basophils (0.0-0.2) 10^3/uL 0.11 Sodium (136-145) mmol/L 140 Potassium (3.5-5.1) mmol/L 4.1 Chloride (98-107) mmol/L 106 Carbon Dioxide (21.0-32.0) mmol/L 24.8 Anion Gap (3-11) mmol/L 9.2 BUN (7-18) mg/dL 17 Creatinine (0.70-1.30) mg/dL 1.0 Estimated GFR/1.73 m2 (mL/min/1.73m2) >= 60.00 Glucose (74-106) mg/dL 135 H Calcium (8.5-10.1) mg/dL 8.6 Total Bilirubin (0.2-1.0) mg/dL 0.1 L AST (15-37) U/L 39 H ALT (16-63) U/L 30 Alkaline Phosphatase (46-116) U/L 86 Total Protein (6.4-8.2) g/dL 6.5 Albumin (3.4-5.0) g/dL 1.2 L Urine Color (Yellow) Yellow Urine Clarity (Clear) Clear Urine pH (5-8) 5.5 Ur Specific [place] (1.005-1.025) >= 1.030 H Urine Protein (Negative) mg/dL >=300 H Urine Ketones (Negative) mg/dL Negative Urine Blood (Negative) Moderate H Urine Nitrite (Negative) Negative Urine Bilirubin (Negative) Negative Urine Urobilinogen (Up TO 0.2) EU/dL 0.2 Ur Leukocyte Esterase (Negative) Negative Urine RBC (0-2) HPF 0-2 Urine WBC (0-5) HPF Negative Ur Epithelial Cells (Negative) HPF Negative Urine Crystals (Negative) HPF Negative Urine Bacteria (Negative) HPF Negative Urine Casts (Negative) LPF 3-5 hyaline Urine Mucus (Negative) Trace Ur Culture Indicated? No Urine Glucose (Negative) mg/dL Negative ECG Data Attestation: I personally reviewed and interpreted this ECG (s) as follows: Interpretation: Please see official report by Dr. Jones. Sinus rhythm, ventricular rate 78. No STEMI. HPI General Mode of arrival: EMS . Date/Time Provider Initiated Documentation: 09/02/20 11:50 . Limitations to Documentation: no limitations . Information obtained by: patient and EMS . HPI Narrative: This is a 54-year-old male, past medical history that includes diabetes, asthma, migraines, hypertension, morbid obesity, pituitary adenoma, current smoker, presenting to the ER today via EMS. He reports that he has been having episodes since May, multiple ER visits, evaluations through his primary care provider and now most recently with neurology. He had an outpatient evaluation with neurology today, reports that evaluation went well, and the plan is an outpatient EEG. He is not on any oral medications for seizures. Patient states that today he was feeling well, after his appointment went home, and was sitting down. He reports seizure activity but states that he is unsure exactly what happened and cannot give me additional information. Apparently his son was present, and he was sitting down and appeared to have had a seizure. He did not fall and there was no injury. There was never an episode of being post ictal. This only lasted for a matter of seconds. Apparently he had some staring off in the distance, occasional body wide jerking, and what was described as a sound that sounded like choking. Patient reports some nausea now but otherwise has no concerns or complaints. He denies recent illness or trauma. He denies headache, visual changes, neck pain, chest pain, shortness of breath, back pain, abdominal pain, vomiting, bowel or bladder incontinence- retention. Denies any change of appetite or sleeping pattern. Patient has no additional questions or concerns at this time. Related Data Home Medications Medication Instructions Recorded Confirmed albuterol sulfate [ProAir HFA] 2 puff INHALATION Q4H PRN PRN #1 07/31/12 09/02/20 inh glipizide [Glucotrol XL] 10 mg PO BID 07/31/12 09/02/20 aspirin 81 mg PO DAILY 07/02/15 09/02/20 Victoza 2-Jesús 1.8 mg . DAILY AM 06/07/17 09/02/20 hydrochlorothiazide 25 mg PO QAM 06/07/17 09/02/20 Lantus Solostar U-100 Insulin 22 unit SUBCUT HS 05/12/20 09/02/20 losartan 25 mg PO DAILY 05/12/20 09/02/20 prochlorperazine maleate 10 mg PO TID PRN #7 tab 05/18/20 09/02/20 [Compazine] cyclobenzaprine 10 mg tablet 10 mg PO HS PRN 07/03/20 09/02/20 loratadine 10 mg tablet 10 mg PO DAILY 07/03/20 09/02/20 metformin 500 mg tablet 500 mg PO DAILY 07/03/20 09/02/20 furosemide 40 mg PO DAILY 09/02/20 09/02/20 galcanezumab-gnlm 120 mg/mL 240 mg SUBCUT ONCE #2 ml 09/02/20 09/02/20 subcutaneous pen injector potassium chloride 10 meq PO DAILY AM 09/02/20 09/02/20 potassium chloride meq PO 09/02/20 09/02/20 sertraline 25 mg PO DAILY 09/02/20 09/02/20 Previous Rx's Medication Instructions Recorded albuterol sulfate [ProAir HFA] 2 puff INHALATION Q4H PRN PRN #1 07/31/12 inh prochlorperazine maleate 10 mg PO TID PRN #7 tab 05/18/20 [Compazine] galcanezumab-gnlm 120 mg/mL 240 mg SUBCUT ONCE #2 ml 09/02/20 subcutaneous pen injector Allergies Allergy/AdvReac Type Severity Reaction Status Date / Time codeine [Codeine] Allergy Mild Hives Unverified 09/02/20 12:04 lisinopril Allergy Anaphylaxsi Unverified 09/02/20 12:04 s Penicillins Allergy unknown Unverified 09/02/20 12:04 General Stated Complaint: Seizure ASHLEY: 2 Review of Systems Constitutional Constitutional: Denies fatigue, Denies fever(s), Reports headache(s) (Chronic migraines, none now) and Denies weakness Eyes Eyes: Denies change in vision ENT Ears, Nose, Mouth, and Throat: Denies neck pain Cardiovascular Cardiovascular: Denies chest pain and Denies dyspnea Respiratory Respiratory: Denies cough and Denies dyspnea Gastrointestinal Gastrointestinal: Denies abdominal pain, Denies constipation, Denies diarrhea, Reports nausea and Denies vomiting Genitourinary Genitourinary: Denies dysuria Musculoskeletal Musculoskeletal: Denies back pain, Denies neck pain, Denies numbness and Denies tingling Integumentary/Breasts Skin/Breast: Denies rash Neurologic Neurologic: Denies numbness, Reports seizure-like activity, Denies tingling and Denies weakness Endocrine Endocrine: Denies fatigue Hematologic/Lymphatic Hematologic/Lymphatic: Denies easy bleeding and Denies easy bruising PFSH Medical History Amputation of lower limb Asthma COPD (chronic obstructive pulmonary disease) Diabetes Erectile dysfunction Headache Hypertension Kidney stones Morbid obesity Phimosis Pituitary adenoma Seasonal allergies Sleep apnea Tobacco abuse Type 2 diabetes mellitus Surgical History History of knee surgery Family History Other Diabetes Social History Smoking/Tobacco Use Status: Current every day Tobacco Type: smokeless tobacco Smokeless tobacco user: chewing tobacco and snuff Smoking risk assessment performed?: Yes Alcohol Intake: current Alcohol Intake frequency: holidays/special occasions only Drug use: Never Substance use type: does not use Household members: children Number of Children: 4 Education Level: high school 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 [employer] Do you feel safe at home: Yes Do you feel safe in your relationship?: Yes Exam Const General: cooperative, healthy appearing, comfortable and no acute distress Orientation: alert, awake and oriented x3 HENMT Head: normal to inspection, normocephalic and atraumatic Face and sinus: normal facial exam Mouth: moist mucous membranes Eyes General: appearance normal, both eyes and all related structures Alignment and Position: alignment normal Periorbital: periorbital findings normal Eyelids: eyelids normal Conjunctivae: conjunctivae normal Sclera: sclerae normal Cornea: corneas normal Pupils: PERRL EOM: EOM intact bilaterally Direct ophthalmoscopy: normal light reflex Neck Neck: normal visual inspection, full ROM, no meningeal signs, trachea midline and supple Resp Effort & Inspection: normal respiratory effort and able to speak in complete sentences Auscultation: clear to auscultation bilaterally Cardio Rate: regular rate Rhythm: regular rhythm GI Inspection: obesity Palpation: soft and nontender Back/Spine/Pelvis Back: No back tenderness Skin General skin exam: no rashes or lesions noted Neuro General: patient alert, patient awake, patient oriented x3, moves all extremities and no focal motor deficits Cranial Nerves: CN's II-XI intact bilaterally Cognition: normal cognition Speech: speech normal Motor: muscle tone normal throughout, strength 5/5 throughout, no movement abnormalities noted and no fasciculations Sensory Exam: no sensory deficits noted Coordination: Does not sway with eyes open Extrem General: normal to inspection, full ROM and capillary refill normal Psych Appearance: grossly normal Mental Status: mental status grossly normal Course Vital Signs Vital signs: Vital Signs Temperature 35.2 C L 09/02/20 11:53 Pulse 79 09/02/20 11:53 Respiratory Rate 18 09/02/20 11:53 Blood Pressure 114/80 09/02/20 11:53 Pulse Oximetry 96 09/02/20 11:53 Temperature 35.2 C L 09/02/20 11:53 Temperature Source Temporal Artery Scan 09/02/20 11:53 Pulse 79 09/02/20 11:53 Respiratory Rate 18 09/02/20 11:53 Respiratory Effort 09/02/20 12:34 Respiratory Depth Normal 09/02/20 12:34 Blood Pressure 114/80 09/02/20 11:53 Pulse Oximetry 96 09/02/20 11:53 Oxygen Delivery Method Room Air 09/02/20 11:53 Oxygen Flow Rate 0 09/02/20 11:53 Pain Level 0 09/02/20 11:53 Lab/Test Results Lab/Test Results: Laboratory Tests Range/Units 09/02/20 09/02/20 12:00 12:00 WBC (4.4-10.8) 10^3/uL 12.11 H RBC (4.36-5.78) 10^6/uL 6.01 H Hgb (13.5-17.5) g/dL 16.4 Hct (40.0-50.0) % 51.3 H MCV (80-95) fL 85.4 MCH (27.0-33.0) pg 27.3 MCHC (32.0-36.0) % 32.0 RDW (11.8-14.1) % 14.6 H Plt Count (130-400) 10^3/uL 335 MPV (8.0-11.0) fL 9.1 Immature Gran % 1.2 Neutrophils % 73.4 Lymphocytes % 16.7 Monocytes % 6.6 Eosinophils % 1.2 Basophils % 0.9 Nucleated RBC % % 0 Absolute Neutrophils (1.2-6.7) 10^3/uL 8.89 H Absolute Lymphocytes (1.2-3.4) 10^3/uL 2.02 Absolute Monocytes (0.1-0.8) 10^3/uL 0.80 Absolute Eosinophils (0.0-0.7) 10^3/uL 0.15 Absolute Basophils (0.0-0.2) 10^3/uL 0.11 Sodium (136-145) mmol/L 140 Potassium (3.5-5.1) mmol/L 4.1 Chloride (98-107) mmol/L 106 Carbon Dioxide (21.0-32.0) mmol/L 24.8 Anion Gap (3-11) mmol/L 9.2 BUN (7-18) mg/dL 17 Creatinine (0.70-1.30) mg/dL 1.0 Estimated GFR/1.73 m2 (mL/min/1.73m2) >= 60.00 Glucose (74-106) mg/dL 135 H Calcium (8.5-10.1) mg/dL 8.6 Total Bilirubin (0.2-1.0) mg/dL 0.1 L AST (15-37) U/L 39 H ALT (16-63) U/L 30 Alkaline Phosphatase (46-116) U/L 86 Total Protein (6.4-8.2) g/dL 6.5 Albumin (3.4-5.0) g/dL 1.2 L
--- NOTE | 2020-09-02 13:15 | DI.RAD_ITS ---
Exam(s) XR CHEST 2V PA LATERAL EXAM: XR CHEST 2V PA LATERAL CLINICAL HISTORY: Seizure, leukocytosis TECHNIQUE: 2D digital imaging was performed. COMPARISON: No exams were available for comparison FINDINGS: MEDIASTINUM: Normal. HEART: Normal. PULMONARY VASCULATURE: Normal. LUNGS: Clear. PLEURAL SPACE: No pleural effusion or pneumothorax. BONE:Within normal limits for the patient's age. OTHER FINDINGS:Normal. IMPRESSION: No acute pulmonary findings. DATA REPOSITORY: RADIATION DOSE DELIVERED:
[2020-09-02 14:20] VITALS: BP 117/78; PULSE 70; RESP 16; TEMP 36.4; O2SAT 99
[2020-09-02 14:23] LABS: Bilirubin Negative (Negative); Blood Moderate (Negative); Clarity Clear (Clear); Glucose Negative (Negative); Ketones Negative (Negative); Leukocyte Esterase Negative (Negative); Nitrite Negative (Negative); Specific Gravity >= 1.030 (1.005-1.025); Urobilinogen 0.2 EU/dL (Up TO 0.2); pH 5.5 (5-8)
[2020-09-02 14:34] VITALS: PULSE 75
[2020-09-02 14:40] VITALS: PULSE 66
[2020-09-02 14:44] LABS: Epithelial Cells Negative HPF (Negative); RBC 0-2 HPF (0-2); WBC Negative HPF (0-5)
[2020-09-02 14:45] LABS: Bacteria Negative HPF (Negative); C & S Indicated? No; Casts 3-5 Hyaline LPF (Negative); Crystals Negative HPF (Negative); Mucus Trace (Negative)
[2020-09-02 14:50] VITALS: PULSE 72
[2020-09-02 15:26] VITALS: BP 118/81; PULSE 70; RESP 18; TEMP 36.5; O2SAT 97
== END 2020-09-02 15:34 | disposition home or self-care (01) ==
PROVIDERS: Emergency Provider Physician Assistant; PCP Nurse Practitioner Family
DX: R56.9 Unspecified convulsions (principal); R11.0 Nausea
CPT/HCPCS: 36415; 80053; 93005; 96361; 96374; 99285; 71046; 81003; 81015; 85025; 93010; J0780

== ENCOUNTER 2020-09-26 09:08 | Observation (INO) | payer OTHER, SELFPAY ==
[2020-09-26] VITALS (19 sets, daily range): BP systolic 123–150; BP diastolic 78–95; PULSE 59–84; RESP 13–25; TEMP 36.5–36.7; O2SAT 90–100
--- NOTE | 2020-09-26 09:00 | RT.EKG_ITS ---
APPROVED REPORT Exam: Resting ECG Reason for Exam: seizure Patient Location: E HR:66 bpm ECG Measurements Heart Rate 66 AXIS NM 155 P 52 QRSd 87 QRS 43 QT 387 T 38 QTc 405 Conclusion Sinus rhythm...normal P axis, V-rate 60- 99. No STEMI. I have reviewed and interpreted ECG and agree with software generated interpretation.
--- NOTE | 2020-09-26 09:00 | DI.CT_ITS ---
Exam(s) CT HEAD WO EXAM: CT HEAD WO CLINICAL HISTORY: Seizure, Laceration, R/O hemorrhage, mass, CVA TECHNIQUE: COMPARISON: CT CT BRAIN NECK CTA from 05/18/[address] BRAIN NECK CTA from 05/18/2020 MR MR BRAIN PITUITARY WO/W from 06/16/2020 FINDINGS: Noncontrast cranial CT was performed. Note is again made a mass of the sella turcica is noted on latonya or CT of May 18 and brain MRI of June 16. This is essentially unchanged in appearance in his consistent with pituitary tumor. There is no evidence of acute intracranial hemorrhage, mass effect, or midline shift. Ventricular sy stem is normal in appearance. The orbital and temporal bone structures appear intact. Visualized pa ranasal sinuses and mastoid air cells are clear. IMPRESSION: Known pituitary tumor again noted. No evidence of acute process. RADIATION DOSE DELIVERED: 780.6mGy.cm Total DLP RADIATION OPTIMIZATION: All CT scans at this facility use at least one of these dose optimization te chniques: automated exposure control; mA and/or kV adjustment per patient size (includes targeted exa ms where dose is matched to clinical indication); or iterative reconstruction.
--- NOTE | 2020-09-26 09:17 | W.ED.GENAD ---
Discharge Plan Discharge Details Chief Complaint: Seizure Admit Date/Time: 09/26/20 12:22 Admit Provider: Amol Carmona Attending Provider: Amol Carmona Primary Care Provider: Mirna Vicente ED Provider: Jazmyn Beard Medical Decision Making 54-year-old male presents to the ER via EMS with a chief complaint of possible seizure activity, syncope, posterior head laceration which occurred just prior to arrival while at a gas station. This was a bystander witnessed episode. Patient last remembers being at the gas station. He did fall down hitting the back of his head onto pavement he has approximately 3 cm laceration noted to the left parietal scalp. Per EMS he was awake, slow to respond upon initial presentation. Witnesses did see shaking tonic type activity. Lasting approximately two minutes. It is reported that he had 20 seconds episode of shaking yesterday. He is not currently on any antielliptic's. He does endorse alcohol use none in the last 24 hours. Upon arrival he is alert and oriented, nauseated, diaphoretic. He has a past medical history of asthma, ray-rtsiqeq-znsivqctb diabetes, kidney stones, At this time work-up ordered including labs, EKG, head CT without contrast. Bleeding controlled by pressure dressing by kennel staff member at Initial presentation. Patient has received 1 mg lorazepam IV here in department and 4 mg of Zofran he did receive 4 mg of Zofran ODT prior to arrival. 1005: Further neuro-assessment completed. Patient states that he has an EEG scheduled today at 330 I did try to verify that with the respiratory department he reports that that is not accurate, he would not make an appointment. Patient has had the Ativan and nausea medications he is vitally stable. CT is pending at this time. Laceration was irrigated by kennel staff member, cleaned with chlorhexidine and sterile normal saline, underlying anatomy intact. Patient had was closed with 3 lanie as noted in procedure note above. Patient tolerated well. 1018: [facility] called For Neuro consult and potential pending transfer. Spoke with [facility] neurologist, he recommends EEG done as an outpatient basis I did discuss that he has had previous episodes in the past. He does not recommend giving IV Keppra at this time. He does recommend starting patient on 500 mg Keppra twice daily. I will speak with the hospitalist regarding keeping patient in the hospital for observation. 1215: Spoke with Respiratory therapist Nadeem who states that they can get EEG done in house today but not until hour an half. Reevaluation and neuro status check: Patient remains alert and oriented, he seems more awake after the Ativan injection. He has no focal neuro deficits noted. I did discuss plan of care for admission and my discussion with the neurologist at [facility]. He does verbalize understanding and is in agreement with plan. At this time I do recommend admission for observation, further care and work-up, EEG, and neurologist evaluation, and to be placed on antiepileptics if deemed necessary. CT Head W/O FINDINGS: Noncontrast cranial CT was performed. Note is again made a mass of the sella turcica is noted on prior CT of May 18 and brain MRI of June 16. This is essentially unchanged in appearance in his consistent with pituitary tumor. There is no evidence of acute intracranial hemorrhage, mass effect, or midline shift. Ventricular system is normal in appearance. The orbital and temporal bone structures appear intact. Visualized paranasal sinuses and mastoid air cells are clear. IMPRESSION: Known pituitary tumor again noted. No evidence of acute process. 1214: Spoke with Dr. Carmona regarding patient case and details, he accepts patient for admission. Patient remained hemodynamically stable throughout stay. This text was generated using [employer] system, please disregard any oddities of phrase or misspellings. HPI General Mode of arrival: EMS. Date/Time Provider Initiated Documentation: 09/26/20 09:26. Limitations to Documentation: altered mental status. Information obtained by: patient, EMS and old records reviewed. HPI Narrative: 54-year-old male presents to the ER via EMS with a chief complaint of possible seizure activity, syncope, posterior head laceration which occurred just prior to arrival while at a gas station. This was a bystander witnessed episode. Patient last remembers being at the gas station. He did fall down hitting the back of his head onto pavement he has approximately 3 cm laceration noted to the left parietal scalp. Per EMS he was awake, slow to respond upon initial presentation. Witnesses did see shaking tonic type activity. Lasting approximately two minutes. It is reported that he had 20 seconds episode of shaking yesterday. He is not currently on any antielliptic's. He does endorse alcohol use none in the last 24 hours. Upon arrival he is alert and oriented, nauseated, diaphoretic. He has a past medical history of asthma, hyu-uibltbd-joauavplj diabetes, kidney stones, Related Data Home Medications Medication Instructions Recorded Confirmed albuterol sulfate [ProAir HFA] 2 puff INHALATION Q4H PRN PRN #1 07/31/12 09/26/20 inh glipizide [Glucotrol XL] 10 mg PO BID 07/31/12 09/26/20 aspirin 81 mg PO DAILY 07/02/15 09/26/20 Victoza 2-Jesús 1.8 mg . DAILY AM 06/07/17 09/26/20 hydrochlorothiazide 25 mg PO QAM 06/07/17 09/26/20 Lantus Solostar U-100 Insulin 22 unit SUBCUT HS 05/12/20 09/26/20 losartan 25 mg PO DAILY 05/12/20 09/26/20 prochlorperazine maleate 10 mg PO TID PRN #7 tab 05/18/20 09/26/20 [Compazine] cyclobenzaprine 10 mg tablet 10 mg PO HS PRN 07/03/20 09/26/20 loratadine 10 mg tablet 10 mg PO DAILY PRN 07/03/20 09/26/20 metformin 500 mg tablet See Rx Instructions .ROUTE .COMPLEX 07/03/20 09/26/20 galcanezumab-gnlm 120 mg/mL 240 mg SUBCUT ONCE #2 ml 09/02/20 09/26/20 subcutaneous pen injector potassium chloride 10 meq PO DAILY AM 09/02/20 09/26/20 sertraline 25 mg PO DAILY 09/02/20 09/26/20 Previous Rx's Medication Instructions Recorded albuterol sulfate [ProAir HFA] 2 puff INHALATION Q4H PRN PRN #1 07/31/12 inh prochlorperazine maleate 10 mg PO TID PRN #7 tab 05/18/20 [Compazine] galcanezumab-gnlm 120 mg/mL 240 mg SUBCUT ONCE #2 ml 09/02/20 subcutaneous pen injector Allergies Allergy/AdvReac Type Severity Reaction Status Date / Time codeine [Codeine] Allergy Mild Hives Unverified 09/26/20 09:18 lisinopril Allergy Anaphylaxsi Unverified 09/26/20 09:18 s Penicillins Allergy unknown Unverified 09/26/20 09:18 General ASHLEY: 2 Review of Systems Narrative: Constitutional: Negative for weight loss, alert and oriented, well groomed, normal body habitus, appears comfortable. HEENT: Denies blurry vision, nasal discharge, sore throat, trouble swallowing. Chest: Denies chest pain, palpitations, irregular rhythm, hypertension. Respiratory: Denies Shortness of breath, cough, hemoptysis. GI: Denies abdominal pain, diarrhea, constipation. : Denies dysuria, hematuria, flank pain, rectal bleeding. Neuro: Denies , blurry vision, weakness, or facial numbness. Hematologic: Denies easy bruising, intolerance to heat or cold, hair loss. [facility] Medical History Amputation of lower limb Asthma COPD (chronic obstructive pulmonary disease) Diabetes Erectile dysfunction Headache Hypertension Kidney stones Morbid obesity Phimosis Pituitary adenoma Seasonal allergies Sleep apnea Tobacco abuse Type 2 diabetes mellitus Surgical History History of knee surgery Family History Other Diabetes Social History Smoking/Tobacco Use Status: Current every day Tobacco Type: smokeless tobacco Smokeless tobacco user: chewing tobacco and snuff Smoking risk assessment performed?: Yes Alcohol Intake: current Alcohol Intake frequency: holidays/special occasions only Drug use: Never Substance use type: does not use Household members: children Number of Children: 4 Education Level: high school 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 Appears stated age. Normal body habitus. Head: Normocephalic, no trauma. Eyes: Pupils PERRLA, Red reflex noted, EOM's intact. Eyelids symmetrical without lesions, discharge, or swelling. ENT: Bilateral TM's WNL, External ear normal to inspection, no mastoid TTP, swelling, or erythema, Nasal turbinates WNL, no nasal discharge. Normal dentition, Posterior pharynx WNL, no exudate. Chest: RRR, Normal S1, S2, distal pulses intact. Resp: Lungs clear to auscultation bilaterally, no wheezes, rales, or rhonchi. Musculoskeletal: Normal gait, 5/5 strength to all four extremities. Skin: No suspicious rashes or lesions. Capillary refill less than 2 sec. Neurologic: Alert and oriented x 3. DTR's intact. Hematologic/Lymphatic: No ecchymosis, no lymphadenopathy. Procedures Laceration Laceration 1: Site: scalp Side (If applicable): left Size (cm): 3 Description: irregular and clean Depth: simple, single layer Local Anesthetic: Lidocaine 1% and with Epi Amount of anesthesia used (mL): 3 Pre-repair: wound explored, irrigated extensively and deep structures intact Size (cm): other (3 lanie)
[2020-09-26 09:42] LABS: Abs Immature Grans 0.09 10^3/uL (0.0-0.06); Absolute Basophil Count 0.05 10^3/uL (0.0-0.2); Absolute Eosinophil Count 0.15 10^3/uL (0.0-0.7); Absolute Lymphocyte Count 1.88 10^3/uL (1.2-3.4); Absolute Monocyte Count 0.65 10^3/uL (0.1-0.8); Absolute Neutrophil Count 6.11 10^3/uL (1.2-6.7); Basophils % 0.6; Eosinophils % 1.7; HCT 48.2 % (40.0-50.0); HGB 15.6 g/dL (13.5-17.5); Lymphocytes % 21.1; MCH 27.6 pg (27.0-33.0); MCHC 32.4 % (32.0-36.0); MCV 85.2 fL (80-95); MPV 9.3 fL (8.0-11.0); Monocytes % 7.3; Neutrophils % 68.3; Nucleated RBC 0 %; Platelet Count 293 10^3/uL (130-400); RBC 5.66 10^6/uL (4.36-5.78); RDW 14.2 % (11.8-14.1); RDW-SD 43.9 fL; WBC 8.93 10^3/uL (4.4-10.8)
[2020-09-26] MEDS: Normal Saline 1,000 ML 1000 ML IV (09:43)
[2020-09-26] MEDS: Ondansetron 4 MG/2 ML VIAL IVP (09:44)
[2020-09-26] MEDS: LORazepam 2 MG/ML VIAL 1 MG IVP (09:44)
[2020-09-26 09:56] LABS: INR 0.9 (0.9-1.1); Prothrombin Time 9.4 sec (9.3-11.0)
[2020-09-26 10:05] LABS: ALT 33 U/L (16-63); AST 44 U/L (15-37); Albumin 1.5 g/dL (3.4-5.0); Alkaline Phosphatase 79 U/L (46-116); Anion Gap 7.8 mmol/L (3-11); BUN 14 mg/dL (7-18); Bilirubin, Total 0.2 mg/dL (0.2-1.0); CO2 27.2 mmol/L (21.0-32.0); CREATININE 0.9 mg/dL (0.70-1.30); Calcium 8.8 mg/dL (8.5-10.1); Chloride 106 mmol/L (98-107); Glucose 110 mg/dL (74-106); Magnesium 1.9 mg/dL (1.8-2.4); Sodium 141 mmol/L (136-145); TSH (W/Ref FT4) 3.07 uIU/mL (0.36-3.74); Total Protein 6.4 g/dL (6.4-8.2)
[2020-09-26 10:07] LABS: ETHANOL BLOOD < 3.0 mg/dL (<3)
[2020-09-26 12:29] LABS: Source Nasal/Nares
[2020-09-26 13:16] LABS: Troponin I < 0.05 ng/mL (<0.06)
[2020-09-26 13:23] LABS: Bilirubin Negative (Negative); Blood Small (Negative); Clarity Clear (Clear); Glucose Negative (Negative); Ketones Negative (Negative); Leukocyte Esterase Negative (Negative); Nitrite Negative (Negative); Specific Gravity >= 1.030 (1.005-1.025); Urobilinogen 0.2 EU/dL (Up TO 0.2)
[2020-09-26 13:33] LABS: *AMPHETAMINES SCREEN URINE Negative (Negative); *BARBITURATES SCREEN URINE Negative (Negative); *BENZODIAZEPINES SCREEN URINE Negative (Negative); Cannabinoids THC Negative (Negative); Cocaine Screen,Urine Negative (Negative); METHADONE URINE SCREEN Negative (Negative); OPIATES URINE SCREEN Negative (Negative)
[2020-09-26 13:34] LABS: Tricyclic Antidepressants Positive (Negative)
[2020-09-26 13:43] LABS: Bacteria Few HPF (Negative); Crystals Negative HPF (Negative); Epithelial Cells Rare HPF (Negative); Mucus Trace (Negative); RBC 0-2 HPF (0-2); WBC 0-2 HPF (0-5)
[2020-09-26 13:44] LABS: C & S Indicated? No; Casts 3-5 Fine Granular LPF (Negative)
--- NOTE | 2020-09-26 15:00 | W.PM.HP.N ---
Date of service: 09/26/20 Time of Service: 15:00 Assessment and Plan Assessment and plan (1) Seizure-like activity: Start date: 09/27/20 Start time: 08: Status: Acute Assessment and plan: Seizure vs syncope, Question of seizure causing syncopal episode based on unaware of surrounding and tonic jerking with post ictal state likely is seizure. EEG revealed no seizure activity though this still remains a clinical diagnosis and does not r/o epilepsy Started on Keppra 500 mg BID He will need to f/u neuro an outpatient holter monitor orthostatic bp (2) Laceration of head: Start date: 09/27/20 Start time: : Status: Acute Assessment and plan: 3 lanie C/D/I. F/U for removal as an outpatient above discussed with Dr. Carmona History of Present Illness History of Present Illness Chief Complaint: Syncopal episode vs seizure Narrative: 54 y.o male with PMH of [facility], presented to [facility] ED with possible seizure activity, questionable syncopal episode, causing posterior head laceration while at the gas station. This was a witnessed episode by bystanders. Last thing patient remembers is being at the gas station. He fell hitting the back of his head onto the pavement leaving an approx. 3 cm laceration to left parietal scalp. EMS called upon arrival he was slow to respond. Per witnesses shaking activity was noted lasting approx 2 mins. Not on antiellptic's. Denies alcohol use in the last 24 hours. [facility] neurologist, recommended EEG done. He does recommend starting patient on 500 mg Keppra twice daily. Labs unremarkable, EEG not revealing for any seizure activity. He has been asked to be admitted to [facility] m/s obs for further management. CT with known pituitary tumor other drummond no acute process, Laceration cleaned and stapled. Review of Systems All systems reviewed & are unremarkable except as noted in HPI and below PFSH Medical History Amputation of lower limb Asthma COPD (chronic obstructive pulmonary disease) Diabetes Erectile dysfunction Headache Hypertension Kidney stones Morbid obesity Phimosis Pituitary adenoma Seasonal allergies Sleep apnea Tobacco abuse Type 2 diabetes mellitus Surgical History History of knee surgery Family History Other Diabetes Social History Smoking/Tobacco Use Status: Current every day Tobacco Type: smokeless tobacco Smokeless tobacco user: chewing tobacco and snuff Smoking risk assessment performed?: Yes Alcohol Intake: current Alcohol Intake frequency: holidays/special occasions only Drug use: Never Substance use type: does not use Household members: children Number of Children: 4 Education Level: high school 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 Do you feel safe at home: Yes Do you feel safe in your relationship?: Yes Meds Allergies and Home Medications Allergies Allergy/AdvReac Type Severity Reaction Status Date / Time codeine [Codeine] Allergy Mild Hives Unverified 09/26/20 09:18 lisinopril Allergy Anaphylaxsi Unverified 09/26/20 09:18 s Penicillins Allergy unknown Unverified 09/26/20 09:18 Home Medications Medication Instructions Recorded Confirmed Type albuterol sulfate [ProAir HFA] 2 puff INHALATION Q4H PRN PRN #1 07/31/12 09/26/20 Rx inh glipizide [Glucotrol XL] 10 mg PO BID 07/31/12 09/26/20 History aspirin 81 mg PO DAILY 07/02/15 09/26/20 History Victoza 2-Jesús 1.8 mg . DAILY AM 06/07/17 09/26/20 History hydrochlorothiazide 25 mg PO QAM 06/07/17 09/26/20 History Lantus Solostar U-100 Insulin 22 unit SUBCUT HS 05/12/20 09/26/20 History losartan 25 mg PO DAILY 05/12/20 09/26/20 History prochlorperazine maleate 10 mg PO TID PRN #7 tab 05/18/20 09/26/20 Rx [Compazine] cyclobenzaprine 10 mg tablet 10 mg PO HS PRN 07/03/20 09/26/20 History loratadine 10 mg tablet 10 mg PO DAILY PRN 07/03/20 09/26/20 History metformin 500 mg tablet See Rx Instructions .ROUTE .COMPLEX 07/03/20 09/26/20 History galcanezumab-gnlm 120 mg/mL 240 mg SUBCUT ONCE #2 ml 09/02/20 09/26/20 Rx subcutaneous pen injector potassium chloride 10 meq PO DAILY AM 09/02/20 09/26/20 History sertraline 25 mg PO DAILY 09/02/20 09/26/20 History Exam Narrative Exam Narrative: Exam Narrative: Constitutional: Alert and oriented x3. Appears stated age. Normal body habitus. Head: Normocephalic, no trauma. Eyes: Pupils PERRLA, Red reflex noted, EOM's intact. Eyelids symmetrical without lesions, discharge, or swelling. ENT: Bilateral TM's WNL, External ear normal to inspection, no mastoid TTP, swelling, or erythema, Nasal turbinates WNL, no nasal discharge. Normal dentition, Posterior pharynx WNL, no exudate. Chest: RRR, Normal S1, S2, distal pulses intact. Resp: Lungs clear to auscultation bilaterally, no wheezes, rales, or rhonchi. Musculoskeletal: Normal gait, 5/5 strength to all four extremities. Skin: No suspicious rashes or lesions. Capillary refill less than 2 sec. Neurologic: Alert and oriented x 3. DTR's intact. Hematologic/Lymphatic: No ecchymosis, no lymphadenopathy. Results Labs Result diagrams: 09/27/20 06:36 09/27/20 06:36 Labs: Laboratory Results - last 24 hr 09/26/20 09/26/20 09/26/20 09:25 09:25 09:25 WBC 8.93 RBC 5.66 Hgb 15.6 Hct 48.2 MCV 85.2 MCH 27.6 MCHC 32.4 RDW 14.2 H Plt Count 293 MPV 9.3 Immature Gran % 1.0 Neutrophils % 68.3 Lymphocytes % 21.1 Monocytes % 7.3 Eosinophils % 1.7 Basophils % 0.6 Nucleated RBC % 0 Absolute Neutrophils 6.11 Absolute Lymphocytes 1.88 Absolute Monocytes 0.65 Absolute Eosinophils 0.15 Absolute Basophils 0.05 PT 9.4 INR 0.9 Sodium 141 Potassium 4.0 Chloride 106 Carbon Dioxide 27.2 Anion Gap 7.8 BUN 14 Creatinine 0.9 Estimated GFR/1.73 m2 >= 60.00 Glucose 110 H Calcium 8.8 Magnesium 1.9 Total Bilirubin 0.2 AST 44 H ALT 33 Alkaline Phosphatase 79 Troponin I Total Protein 6.4 Albumin 1.5 L TSH 3.07 Urine Color Urine Clarity Urine pH Ur Specific Lueders Urine Protein Urine Ketones Urine Blood Urine Nitrite Urine Bilirubin Urine Urobilinogen Ur Leukocyte Esterase Urine RBC Urine WBC Ur Epithelial Cells Urine Crystals Urine Bacteria Urine Casts Urine Mucus Ur Culture Indicated? Urine Glucose Urine Opiates Screen Urine Methadone Screen Ur Barbiturates Screen Ur Tricyclics Screen Ur Amphetamines Screen U Benzodiazepines Scrn Urine Cocaine Screen Ur THC Screen Ethyl Alcohol < 3.0 COVID-19 Source 09/26/20 09/26/20 09/26/20 12:24 12:47 12:59 WBC RBC Hgb Hct MCV MCH MCHC RDW Plt Count MPV Immature Gran % Neutrophils % Lymphocytes % Monocytes % Eosinophils % Basophils % Nucleated RBC % Absolute Neutrophils Absolute Lymphocytes Absolute Monocytes Absolute Eosinophils Absolute Basophils PT INR Sodium Potassium Chloride Carbon Dioxide Anion Gap BUN Creatinine Estimated GFR/1.73 m2 Glucose Calcium Magnesium Total Bilirubin AST ALT Alkaline Phosphatase Troponin I < 0.05 Total Protein Albumin TSH Urine Color Urine Clarity Urine pH Ur Specific Lueders Urine Protein Urine Ketones Urine Blood Urine Nitrite Urine Bilirubin Urine Urobilinogen Ur Leukocyte Esterase Urine RBC Urine WBC Ur Epithelial Cells Urine Crystals Urine Bacteria Urine Casts Urine Mucus Ur Culture Indicated? Urine Glucose Urine Opiates Screen Negative Urine Methadone Screen Negative Ur Barbiturates Screen Negative Ur Tricyclics Screen Positive A Ur Amphetamines Screen Negative U Benzodiazepines Scrn Negative Urine Cocaine Screen Negative Ur THC Screen Negative Ethyl Alcohol COVID-19 Source Nasal/nares 09/26/20 12:59 WBC RBC Hgb Hct MCV MCH MCHC RDW Plt Count MPV Immature Gran % Neutrophils % Lymphocytes % Monocytes % Eosinophils % Basophils % Nucleated RBC % Absolute Neutrophils Absolute Lymphocytes Absolute Monocytes Absolute Eosinophils Absolute Basophils PT INR Sodium Potassium Chloride Carbon Dioxide Anion Gap BUN Creatinine Estimated GFR/1.73 m2 Glucose Calcium Magnesium Total Bilirubin AST ALT Alkaline Phosphatase Troponin I Total Protein Albumin TSH Urine Color Yellow Urine Clarity Clear Urine pH 7.0 Ur Specific Lueders >= 1.030 H Urine Protein >=300 H Urine Ketones Negative Urine Blood Small H Urine Nitrite Negative Urine Bilirubin Negative Urine Urobilinogen 0.2 Ur Leukocyte Esterase Negative Urine RBC 0-2 Urine WBC 0-2 Ur Epithelial Cells Rare Urine Crystals Negative Urine Bacteria Few Urine Casts 3-5 fine granular Urine Mucus Trace Ur Culture Indicated? No Urine Glucose Negative Urine Opiates Screen Urine Methadone Screen Ur Barbiturates Screen Ur Tricyclics Screen Ur Amphetamines Screen U Benzodiazepines Scrn Urine Cocaine Screen Ur THC Screen Ethyl Alcohol COVID-19 Source Last Vital Signs Temp 36.6 C 09/26/20 13:50 Pulse 80 09/26/20 14:30 Resp 16 09/26/20 13:50 BP 150/95 H 09/26/20 13:50 Pulse Ox 100 09/26/20 13:50 COVID-19 Screening Have you, or household traveled for leisure in last 14 days?: No Had IN PERSON contact w/suspected or confirmed C-19 person: No
[2020-09-26 16:26] LABS: COVID-19 PCR Negative (Negative)
--- NOTE | 2020-09-26 17:12 | PDOC.EEG ---
Neurology EEG EEG: [facility] Department of Neurology INPATIENT EEG REPORT Date of Recordin09/26/20 Interpreting Physician: Dr. Pippa Whitehead Reason for study: Mr. Cunningham is a 54 year-old man with several months of various spells concerning for seizure. Current Medications: Current Medications Albuterol Sulfate (Albuterol Hfa 8 Gm 60 Puff Inh) 2 puff IH Q4H PRN PRN Aspirin (Aspirin 81 Mg Chew) 81 mg PO DAILY SILVANO Cyclobenzaprine HCl (Cyclobenzaprine 10 Mg Tab) 10 mg PO HS PRN PRN Device (Inhaler, Assist Device) 1 each MC DIRECTED SILVANO Dextrose (Glucose 40% Oral Solution 15 Gm/37.5 Gm Tube) 0 gm PO DIRECTED PRN Dextrose/Water (Dextrose 50%-Water 25 Gm/50 Ml Syr) 0 gm IVP DIRECTED PRN Hydrochlorothiazide (Hydrochlorothiazide 25 Mg Tab) 25 mg PO QAM SILVANO Sodium Chloride (Saline 500ml Bag) 500 mls @ 0 mls/hr IV PRN PRN IV Miscellaneous Supplies (Iv Access) 1 each IV DIRECTED SILVANO Insulin Aspart (Insulin Aspart 300 Units/3 Ml Pen) 0 units SC 0800,1200,1700 SILVANO; Protocol Insulin Glargine (Insulin Glargine 300 Units/3 Ml Pen) 22 units SC HS SILVANO Loratadine (Loratidine 10 Mg Tab) 10 mg PO DAILY PRN PRN Losartan Potassium (Losartan 25 Mg Tab) 25 mg PO DAILY SILVANO Patient's Own Medication ( Liraglutide [Victoza 2-Jesús] 0.6 Mg/0.1 Ml Pen Inject) 1.8 each SC DAILY AM SILVANO Potassium Chloride (Potassium Chloride 10 Meq Tabcr) 10 meq PO DAILY SILVANO Prochlorperazine Maleate (Prochlorperazine 10 Mg Tab) 10 mg PO TID PRN PRN PRN Reason: nausea and vomiting Sertraline HCl (Sertraline 25 Mg Tab) 25 mg PO DAILY SILVANO Sodium Chloride (Normal Saline Flush 10 Ml Syr) 0 ml IVP PRN PRN METHODS: A 21 channel digitized electroencephalogram was performed in the [facility] Med/Surg Floor or ICU. The 10/20 international system of electrode placement was used and bipolar and referential electrode montages were recorded. In addition to EEG the patient was monitored for EKG and lateral/vertical eye movements. Activation procedures of photic stimulation and hyperventilation were performed if applicable. Video was used during activation procedures and during events where applicable. The duration of the recording was 30 minutes. DESCRIPTION OF EEG: The patient was noted to be awake, drowsy, and asleep during the recording. During maximal wakefulness a 9-Hz posterior background rhythm was present which was well-modulated, symmetrical, reactive to eye opening, and of moderate voltage. With eye opening the background activity changed to a low voltage mixture of alpha, beta, and occasional theta range frequencies. Faster frequencies were present in the bilateral anterior head regions. There was a normal anterior-posterior voltage gradient. During drowsiness, there was attenuation of the posterior dominant background rhythm and vertex waves. Stage II sleep was present with symmetrical sleep spindles, K-complexes, and vertex waves. Activating Procedures: Photic stimulation and hyperventilation were not performed as requested by patient. EKG: EKG revealed normal sinus rhythm with frequent PVCs. INTERPRETATION: This EEG is normal during the awake and sleep states. PRIOR EEG: none CLINICAL CORRELATION: No focal regions of cerebral dysfunction or epileptiform activity was present. Epilepsy remains a clinical diagnosis and a normal EEG does not rule out epilepsy. Clinical correlation is advised. Pippa Whitehead MD
[2020-09-26 19:58] LABS: Troponin I < 0.05 ng/mL (<0.06)
[2020-09-26] MEDS: Insulin Glargine 300 UNITS/3 ML PEN 22 UNITS SC (21:04)
[2020-09-26] MEDS: Cyclobenzaprine 10 MG TAB PO (21:04)
[2020-09-27 03:08] VITALS: BP 128/64; PULSE 78; RESP 20; TEMP 36.7; O2SAT 97
[2020-09-27 06:48] LABS: Abs Immature Grans 0.05 10^3/uL (0.0-0.06); Absolute Basophil Count 0.05 10^3/uL (0.0-0.2); Absolute Eosinophil Count 0.15 10^3/uL (0.0-0.7); Absolute Monocyte Count 0.61 10^3/uL (0.1-0.8); Absolute Neutrophil Count 5.42 10^3/uL (1.2-6.7); Basophils % 0.6; Eosinophils % 1.8; HCT 45.1 % (40.0-50.0); HGB 14.5 g/dL (13.5-17.5); Immature Grans % 0.6; Lymphocytes % 25.9; MCH 27.4 pg (27.0-33.0); MCHC 32.2 % (32.0-36.0); MCV 85.3 fL (80-95); MPV 8.8 fL (8.0-11.0); Monocytes % 7.2; Neutrophils % 63.9; Nucleated RBC 0 %; Platelet Count 251 10^3/uL (130-400); RBC 5.29 10^6/uL (4.36-5.78); RDW 14.3 % (11.8-14.1); RDW-SD 44.2 fL; WBC 8.48 10^3/uL (4.4-10.8)
[2020-09-27 07:00] VITALS: PULSE 69
[2020-09-27 07:00] LABS: BUN 13 mg/dL (7-18); CREATININE 0.8 mg/dL (0.70-1.30); Calcium 8.2 mg/dL (8.5-10.1); Chloride 106 mmol/L (98-107); Glucose 99 mg/dL (74-106); Sodium 140 mmol/L (136-145)
[2020-09-27 07:49] VITALS: BP 113/71; PULSE 74; RESP 18; TEMP 37.2; O2SAT 98
[2020-09-27] MEDS: hydroCHLOROthiazide 25 MG TAB PO (08:11)
[2020-09-27] MEDS: Losartan 25 MG TAB PO (08:11)
[2020-09-27] MEDS: Aspirin 81 MG CHEW PO (08:11)
[2020-09-27] MEDS: Sertraline 25 MG TAB PO (08:11)
[2020-09-27] MEDS: levETIRAcetam 500 MG TAB 1000 MG PO (08:12)
[2020-09-27] MEDS: Potassium Chloride 10 MEQ TABCR PO (08:12)
--- NOTE | 2020-09-27 09:03 | INITIAL_ITS ---
- If Service Date Differs Date of service: 09/27/20 Time of Service: 09:03 Care Management Initial Assess REASON FOR HOSPITALIZATION:: Seizure, head laceration. PAST MEDICAL HISTORY/PAST SURGICAL HISTORY:: Medical History: Amputation of lower limb, Asthma, COPD (chronic obstructive pulmonary disease), Diabetes, Erectile dysfunction, Headache,. Hypertension, Kidney stones, Morbid obesity, Phimosis, Pituitary adenoma,. Seasonal allergies, Sleep apnea, Tobacco abuse, and Type 2 diabetes mellitus. Surgical History: History of knee surgery. PREVIOUS FUNCTIONAL STATUS/SOCIAL/FAMILY SUPPORTS:: Ranjan lives in [place]. He is but has been from [place], his of 34 years, since May. He has 4 adult children who live in various places throughout [place]. 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 He enjoys hunting and fishing and is independent at baseline. CURRENT FUNCTIONAL STATUS:: Ranjan is sitting in a chair watching television when CM comes to meet with him. He is pleasant and talkative. He talks a little bit about his separation from his and how he wishes things could be different. CM will continue to follow. ADVANCE DIRECTIVES:: On file; , [place], is appointed as Health Care Agent. Has patient been provided with info about the portal/API?: No Did the patient sign up for the portal?: No CODE STATUS:: Full Code INSURANCE COVERAGE / FINANCIAL ISSUES:: [facility] (P). CURRENT HOME/COMMUNITY SERVICES/EQUIPMENT:: None. PRIMARY CARE PHYSICIAN:: AXEL Sahu. POTENTIAL DISCHARGE NEEDS:: Follow up appointments with PCP and cardiology. PATIENT/FAMILY EDUCATION NEEDS:: Discharge instructions, limitations, and follow up plan of care, including Ask Me Three and self management. ANTICIPATED BARRIERS TO DISCHARGE:: No anticipated barriers at this time. TRANSPORTATION:: Via private vehicle with family. PLAN:: Anticipate Ranjan will be discharged home when medically cleared by provider. He will follow up with his PCP, forming fixer, and discharge plan of care as directed. He will be driven home by family via private vehicle when ready. CM will continue to follow.
[2020-09-27 11:51] VITALS: BP 112/71; PULSE 81; RESP 18; TEMP 36.8; O2SAT 95
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
--- NOTE | 2020-09-27 13:59 | PDOC.CMDIS ---
- If Service Date Differs Date of service: 09/27/20 Time of Service: 13:59 LACE Index Scoring Tool - Questions: Length of Stay (in days): 1 Acuity (Admit via E.D.?): Yes Comorbidities: Diabetes w/o Complication, Chronic Pulmonary Disease E.D. Visits: 4 - Answers: Total Score: 11 Risk of Readmission: High Risk Care Management Discharge Reason for Hospitalization: Seizure, head laceration. Discharge Plan: Ranjan is discharged home with a 30-day cardiac event recorder. He will follow up with his PCP, neurology, and discharge plan of care as directed, and will have an outpatient echocardiogram. Ranjan is driven home by his son via private vehicle. Patient/Family Education Needs: Review discharge instructions, limitations, and following up plan of care, including Ask Me Three and self management.
== END 2020-09-27 14:48 | disposition home or self-care (01) | DRG 101 ==
LOC: ER 12:44 → MS 15:24
PROVIDERS: Nurse Practitioner Family; Admitting Provider Family Medicine; Emergency Provider Registered Nurse Emergency; PCP Nurse Practitioner Family; Visit Provider Family Medicine
DX: R56.9 Unspecified convulsions (principal); R55 Syncope and collapse; D49.7 Neoplasm of unspecified behavior of endocrine glands and other parts of nervous system; S01.01XA Laceration without foreign body of scalp, initial encounter; J44.9 Chronic obstructive pulmonary disease, unspecified; W18.39XA Other fall on same level, initial encounter; E11.9 Type 2 diabetes mellitus without complications; G47.30 Sleep apnea, unspecified; E66.01 Morbid (severe) obesity due to excess calories; I10 Essential (primary) hypertension; G43.909 Migraine, unspecified, not intractable, without status migrainosus; F17.290 Nicotine dependence, other tobacco product, uncomplicated; Z20.822 Contact with and (suspected) exposure to COVID-19; Z68.39 Body mass index [BMI] 39.0-39.9, adult; Z87.442 Personal history of urinary calculi
CPT/HCPCS: 12002; 36415; 80048; 80053; 80307; 87635; 93005; 93270; 95819; 96361; 96374; 96375; 99285; 70450; 80320; 81003; 81015; 83735; 84443; 84484; 85025; 85610; 93010; 99217; 99219; 99222; 99238; 99284; J2060; J2405

== ENCOUNTER 2020-10-13 03:12 | Emergency (ER) | payer OTHER, SELFPAY ==
[2020-10-13 03:19] VITALS: BP 172/101; PULSE 89; RESP 18; TEMP 36.8; O2SAT 97
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
--- NOTE | 2020-10-13 03:35 | PDOC.MHCN_ITS ---
Date of service: 10/13/20 Time of Service: 03:36 Mental Health Crisis Note Presenting Issue How did you arrive at the ED and why did you come: Client arrived at [facility] ED via [facility] Police after warrant was signed by Brake Operator Heavy Duty. Client is currently on involuntary status. Precipitating Factors Client would not engage with this telegraphic typewriter operator. Disposition BEHAVIOR: Client presents as highly agitated and keeps asking questions about why he is here, this telegraphic typewriter operator and [facility] explain to client his rights and why he is at the ED. EYE CONTACT: Client makes intermittent eye contact. MOOD: Irritable, agitated, and threatening. AFFECT: Agitated APPETITE: Did not assess SLEEP(trouble falling/staying asleep: Did not assess Plan Client will remain at [facility] ED pending 2nd certification with [facility] this morning. Safety plan in place with health care assistant. Signature Clinician's Name/Title: RUBEN Molina Emergency Clinician
--- NOTE | 2020-10-13 03:35 | PDOC.MHCN ---
Date of service: 10/13/20 Time of Service: 03:36 Mental Health Crisis Note Presenting Issue How did you arrive at the ED and why did you come: Client arrived at [facility] ED via [facility] Police after warrant was signed by Blow Torch Operator. Client is currently on involuntary status. Precipitating Factors Client would not engage with this movie writer. Disposition BEHAVIOR: Client presents as highly agitated and keeps asking questions about why he is here, this movie writer and [facility] explain to client his rights and why he is at the ED. EYE CONTACT: Client makes intermittent eye contact. MOOD: Irritable, agitated, and threatening. AFFECT: Agitated APPETITE: Did not assess SLEEP(trouble falling/staying asleep: Did not assess Plan Client will remain at [facility] ED pending 2nd certification with [facility] this morning. Safety plan in place with anesthesiologist and critical care. Signature Clinician's Name/Title: RUBEN Molina Emergency Clinician
--- NOTE | 2020-10-13 04:08 | CMSP_ITS ---
- If Service Date Differs Date of service: 10/13/20 Time of Service: 04:08 Care Management Safety Plan Status: Involuntary - Reason for Wait Reason for Wait: Inpatient Admission Patient arrived on a warrant with [employer] after making suicidal comments and sending texts saying goodbye. Safety plan has been established to meet the needs of the patient, and consideration of the care team, to adhere to patient goals, identify restrictions based on behavioral status, address nutrition, and determine allowed personal belongings, tools for hygiene and personal care. Determine level of activity including ambulation, level of supervision, visitors, and determine privileges based on behaviors and level of engagement by pt. SAFETY PLAN: 1. May wear own clothes after wanding by security or police until seen by psychiatrist 2. Will remain in room under direct supervision of one-on-one staff at all times provided by CPSO; EMILY, FORK TRUCK OPERATOR principal investigator. 3. May have paper cups, plates, finger foods as well as a cardboard spoon 4. Follow [facility] Management of the Admitted Behavioral Health Patient policy. 5. Comfort bath system only. 6. No personal belongings except for medical office receptionist assistant he arrived with 7. Visitors: none at this time 8. Activities: may have reading material and soft items from activity cart 9. Bathroom privileges with supervision 10. Phone: None at this time 11. Due to INVOLUNTARY status, patient is being held at [facility] by the Department of Mental Health ([facility]) until 2nd certification by [facility] Psychiatrist can be performed (within 24 hours). Staff will provide de-escalation support (CPI) as needed. If patient wishes to leave [facility], staff will contact [facility] Crisis Screener ([phone]) and On-Call Motor Mechanic ([phone]) as soon as possible. In the event of elopement, notify [place] [employer] Police ([phone]). Patient is currently involuntarily at [facility]. [facility] Frontline Assistant County Engineer will continue seeking placement. Please contact the Human Development Professor Motor Mechanic ([phone]) for any needed changes to Safety Plan. Safety plan has been provided to interdepartmental care team. Patient will be transported by [employer] at time of discharge.
--- NOTE | 2020-10-13 04:08 | PDOC.CMSAFED ---
- If Service Date Differs Date of service: 10/13/20 Time of Service: 04:08 Care Management Safety Plan Status: Involuntary - Reason for Wait Reason for Wait: Inpatient Admission Patient arrived on a warrant with [employer] after making suicidal comments and sending texts saying goodbye. Safety plan has been established to meet the needs of the patient, and consideration of the care team, to adhere to patient goals, identify restrictions based on behavioral status, address nutrition, and determine allowed personal belongings, tools for hygiene and personal care. Determine level of activity including ambulation, level of supervision, visitors, and determine privileges based on behaviors and level of engagement by pt. SAFETY PLAN: 1. May wear own clothes after wanding by security or police until seen by psychiatrist 2. Will remain in room under direct supervision of one-on-one staff at all times provided by CPSO; EMILY, PEDIATRICS HOSPITALIST burr mill operator. 3. May have paper cups, plates, finger foods as well as a cardboard spoon 4. Follow [facility] Management of the Admitted Behavioral Health Patient policy. 5. Comfort bath system only. 6. No personal belongings except for medical laboratory assistant he arrived with 7. Visitors: none at this time 8. Activities: may have reading material and soft items from activity cart 9. Bathroom privileges with supervision 10. Phone: None at this time 11. Due to INVOLUNTARY status, patient is being held at [facility] by the Department of Mental Health ([facility]) until 2nd certification by [facility] Psychiatrist can be performed (within 24 hours). Staff will provide de-escalation support (CPI) as needed. If patient wishes to leave [facility], staff will contact [facility] Crisis Screener ([phone]) and On-Call Sixth Grade Teacher ([phone]) as soon as possible. In the event of elopement, notify [place] State Police ([phone]). Patient is currently involuntarily at [facility]. [facility] Frontline Workers Compensation Paralegal will continue seeking placement. Please contact the Carbide Tool Maker Sixth Grade Teacher ([phone]) for any needed changes to Safety Plan. Safety plan has been provided to interdepartmental care team. Patient will be transported by [employer] at time of discharge.
[2020-10-13 04:19] LABS: Abs Immature Grans 0.09 10^3/uL (0.0-0.06); Absolute Basophil Count 0.07 10^3/uL (0.0-0.2); Absolute Eosinophil Count 0.11 10^3/uL (0.0-0.7); Absolute Lymphocyte Count 2.21 10^3/uL (1.2-3.4); Absolute Monocyte Count 0.85 10^3/uL (0.1-0.8); Absolute Neutrophil Count 7.84 10^3/uL (1.2-6.7); Basophils % 0.6; HGB 16.8 g/dL (13.5-17.5); Immature Grans % 0.8; Lymphocytes % 19.8; MCH 27.4 pg (27.0-33.0); MCHC 32.3 % (32.0-36.0); MCV 84.7 fL (80-95); MPV 8.9 fL (8.0-11.0); Monocytes % 7.6; Neutrophils % 70.2; Nucleated RBC 0 %; Platelet Count 299 10^3/uL (130-400); RBC 6.14 10^6/uL (4.36-5.78); RDW 13.9 % (11.8-14.1); RDW-SD 42.9 fL; WBC 11.17 10^3/uL (4.4-10.8)
--- NOTE | 2020-10-13 04:24 | NUR.NOTE ---
Nursing Note: pt denies any type of homicidal or suicidal ideation. Per Mental Health they state they have been in contact with family who report pt has been making statements, sending texts and sent will to family members surrounding october 13 as a date to possibly hurt himself. Pt does admit to me that he is angry and precipitating event today was that of 34 years walked out on him.
[2020-10-13 04:40] LABS: Acetaminophen < 2 ug/mL (10-30); Salicylate < 2.8 mg/dL (<2.8)
[2020-10-13 04:41] LABS: ALT 26 U/L (16-63); AST 30 U/L (15-37); Albumin 1.7 g/dL (3.4-5.0); Alkaline Phosphatase 88 U/L (46-116); Anion Gap 9.4 mmol/L (3-11); BUN 15 mg/dL (7-18); Bilirubin, Total 0.2 mg/dL (0.2-1.0); CO2 26.6 mmol/L (21.0-32.0); CREATININE 0.9 mg/dL (0.70-1.30); Calcium 8.8 mg/dL (8.5-10.1); Chloride 105 mmol/L (98-107); ETHANOL BLOOD < 3.0 mg/dL (<3); Glucose 101 mg/dL (74-106); Potassium 3.9 mmol/L (3.5-5.1); Sodium 141 mmol/L (136-145); TSH (W/Ref FT4) 3.84 uIU/mL (0.36-3.74); Total Protein 7.3 g/dL (6.4-8.2)
--- NOTE | 2020-10-13 08:16 | NUR.NOTE ---
Mental health in room. Nursing Note:
--- NOTE | 2020-10-13 08:30 | NUR.NOTE ---
Mental health out of room. Nursing Note:
--- NOTE | 2020-10-13 09:08 | NUR.NOTE ---
PT requesting respiratory therapy be paged for his heart monitor. ER staff notified and RT was paged. Nursing Note:
[2020-10-13] MEDS: Losartan 25 MG TAB PO (09:28)
[2020-10-13] MEDS: levETIRAcetam 250 MG TAB 500 MG PO ×2 (09:28→21:07)
[2020-10-13] MEDS: hydroCHLOROthiazide 25 MG TAB PO (09:29)
[2020-10-13] MEDS: Sertraline 25 MG TAB PO (09:29)
[2020-10-13] MEDS: metFORMIN 500 MG TAB 1500 MG PO (09:29)
[2020-10-13 09:31] VITALS: BP 143/91; PULSE 77; RESP 18; TEMP 36.6; O2SAT 96
[2020-10-13 12:40] LABS: Bilirubin Negative (Negative); Blood Small (Negative); Clarity Clear (Clear); Glucose Negative (Negative); Ketones Negative (Negative); Leukocyte Esterase Negative (Negative); Nitrite Negative (Negative); Specific Gravity >= 1.030 (1.005-1.025); Urobilinogen 0.2 EU/dL (Up TO 0.2)
[2020-10-13 12:47] LABS: Bacteria Negative HPF (Negative); C & S Indicated? No; Crystals Negative HPF (Negative); Epithelial Cells Rare HPF (Negative); Mucus Negative (Negative); RBC 0-2 HPF (0-2); WBC Negative HPF (0-5)
--- NOTE | 2020-10-13 13:24 | PDOC.MHCN_ITS ---
Date of service: 10/13/20 Time of Service: 13:30 Mental Health Crisis Note Presenting Issue How did you arrive at the ED and why did you come: Pt arrived early this am 6.14.2020 after [facility] Deborah Beck executed a mental health warrant. Precipitating Factors Pt denied that he is SI or HI however, his recent behaviors as reported by family members suggest differently. There are no signs of delusions. Disposition BEHAVIOR: Pt is presenting as tearful, manipulative, and minimizing the events that lead to the Warrant being written. Pt is angry that he is in this situation. Nurses report that he has been sexually inappropriate with her making statements that she may not want to come too close as he is a violent offender. When she questioned this he said well you would have thought so with the way they all came at me this morning. EYE CONTACT: Eye contact is fair but mostly he looks to his hands and avoids direct eye contact. MOOD: Mood is angry and verbally threatening toward the ESC who was initially involved I will have her job. AFFECT: Affect is tearful and angry as well. APPETITE: Pt has ate some. SLEEP(trouble falling/staying asleep: Sleep was not assessed. Plan PT will remain at [facility] despite what Judge Martinez wrote on his signature page. According to statues Warrants have to go to the closest ER not the closest DA. Dr. Butts had already written the phsyician's piece and all of this was faxed to [facility], [facility], [facility] and [facility]. Voice calls were made to [facility] and a message left requesting a call back, did not give an answer as to if they have available space or not, [facility] does not have capacity but did accept the referral. Sales Development Associate spoke to [facility] who does not have capacity and [facility] is deferring Pt's due to acuity in the ED. Pt was informed that it is policy that he not have his cell phone and he is not willing to give this up as he is having a decent conversation with my for the first time in a long time. Pt also informed that he will need to give over his sneakers for the time being which he is willing to do. Pt was informed that he will meet with a psychiatrist this evening and it is the psychiatrist who makes the final decision as to hospitalization or not. All treatment team mem bers are made aware. Signature Clinician's Name/Title: Annemarie Dunn MS, [facility] Emergency Services Clinician, [facility]
[2020-10-13 13:44] LABS: *AMPHETAMINES SCREEN URINE Negative (Negative); *BARBITURATES SCREEN URINE Negative (Negative); *BENZODIAZEPINES SCREEN URINE Negative (Negative); Cannabinoids THC Negative (Negative); Cocaine Screen,Urine Negative (Negative); METHADONE URINE SCREEN Negative (Negative); OPIATES URINE SCREEN Negative (Negative)
[2020-10-13 13:46] LABS: Tricyclic Antidepressants Positive (Negative)
--- NOTE | 2020-10-13 13:52 | NUR.NOTE ---
Mental health in room along with rn homecare. Nursing Note:
--- NOTE | 2020-10-13 14:04 | NUR.NOTE ---
Mental health out of room. Nursing Note:
[2020-10-13 14:06] LABS: Source Nasal/Nares
--- NOTE | 2020-10-13 14:15 | RT.EKG_ITS ---
APPROVED REPORT Exam: Resting ECG Reason for Exam: SI Patient Location: E HR:76 bpm ECG Measurements Heart Rate 76 AXIS MI 150 P 50 QRSd 84 QRS 23 QT 360 T 45 QTc 405 Conclusion Sinus rhythm...normal P axis, V-rate 60- 99 sinus rhythm at 76, nl axis, no acute ischemic changes, non-diagnostic EKG
--- NOTE | 2020-10-13 16:08 | NUR.NOTE ---
Nursing Note: Received call from daughter Samira- daughter is requesting an update when pt is accepted and transferred to another facility. She is on this pt HIPPA directives and can be reached at [phone]
--- NOTE | 2020-10-13 19:51 | CMSP_ITS ---
- If Service Date Differs Date of service: 10/13/20 Time of Service: 19:51 Care Management Safety Plan Status: Involuntary - Reason for Wait Reason for Wait: Inpatient Admission Patient arrived on a warrant with [employer] after making suicidal comments and sending text messages to family members saying goodbye. This evening, Ranjan met with Dr. Rahman via [employer] for the 2nd certification by psychiatrist. Dr. Rahman expressed concern around Ranjan's poor insight and attempts to rationalize his behavior. The EE is upheld. Safety plan has been established to meet the needs of the patient, and consideration of the care team, to adhere to patient goals, identify restrictions based on behavioral status, address nutrition, and determine allowed personal belongings, tools for hygiene and personal care. Determine level of activity including ambulation, level of supervision, visitors, and determine privileges based on behaviors and level of engagement by pt. SAFETY PLAN: 1. May wear own clothes after wanding by security or police until seen by psychiatrist 2. Will remain in room under direct supervision of one-on-one staff at all times provided by CPSO, SPECIAL EDUCATION COORDINATOR, METROPOLITAN EDITOR inside horticultural specialty grower. 3. May have paper cups, plates, finger foods as well as a cardboard spoon with which to eat meals. 4. Follow [facility] Management of the Admitted Behavioral Health Patient policy. 5. Personal Care: May shower with supervision and at RN discretion. 6. No personal belongings except for heart monitor and cell phone he arrived with. 7. Visitors: None at this time. 8. Activities: Reading material, music tablet, and other activities at RN discretion. 9. Bathroom privileges with escort while in the ED. 10. Phone: May use hospital phone for incoming and outgoing phone calls at RN discretion. 11. Due to INVOLUNTARY status, patient is being held at [facility] by the Department of Mental Health ([facility]). A 2nd certification by [facility] Psychiatrist is performed this evening, upholding the EE. Staff will provide de-escalation support (CPI) as needed. If patient wishes to leave [facility], staff will contact [facility] Crisis Screener ([phone]) and On-Call Consulting Project Director ([phone]) as soon as possible. In the event of elopement, notify [facility] Police ([phone]). Patient is currently involuntarily at [facility]. [facility] Frontline Early Childhood Education Coordinator will continue seeking placement. Please contact the Agribusiness Professor Consulting Project Director ([phone]) for any needed changes to Safety Plan. Safety plan has been provided to interdepartmental care team. Patient will be transported by storage battery tester at time of discharge.
[2020-10-13 21:00] LABS: COVID-19 PCR Negative (Negative)
[2020-10-13 21:01] VITALS: BP 142/83; PULSE 80; RESP 18; TEMP 36.7; O2SAT 97
--- NOTE | 2020-10-13 22:42 | PDOC.MHCN ---
Date of service: 10/13/20 Time of Service: 19:00 Mental Health Crisis Note Presenting Issue How did you arrive at the ED and why did you come: Client arrived to [facility] ED via warrant / LE. Currently on involuntary status awaiting placement. Precipitating Factors Did not assess - Scheduled 2nd certification. Disposition BEHAVIOR: N/A EYE CONTACT: N/A MOOD: N/A AFFECT: N/A APPETITE: N/A SLEEP(trouble falling/staying asleep: N/A Plan Dr. Rahman, [place], conducted 2nd certification process and determined that the patient was in need of treatment. Signature Clinician's Name/Title: EZEQUIEL Majano EES clinician / hp
[2020-10-14 00:28] LABS: Casts 5-10 Hyaline LPF (Negative)
--- NOTE | 2020-10-14 03:51 | NUR.NOTE ---
Nursing Note:Call received from [place] Board of Mental Health requesting an update on patient behavior. Assessment given, taking medication, calm , cooperative, son brought belongings and has showered this shift. COVID Swab negative.
[2020-10-14 08:48] VITALS: BP 126/90; PULSE 75; RESP 16; TEMP 36.6; O2SAT 97
--- NOTE | 2020-10-14 08:59 | PDOC.MHCN_ITS ---
Date of service: 10/14/20 Time of Service: 09:01 Mental Health Crisis Note Presenting Issue How did you arrive at the ED and why did you come: Pt arrived 10.13.2020 after [facility] Deborah Beck executed a MH Warrant. The Warrant was written after [facility] Eliz Proctoranita had received numerous concerning calls from family that the Pt had made several texts and calls to family saying goodbye and stating he would always love them and not to forget him. Pt also kept repeating 6.14 over and over again. Precipitating Factors Pt denied SI and HI. He is not showing any signs of delusions. Disposition BEHAVIOR: Pt has had no behavior concerns since his arrival. He is cooperative and engaged and upset both with anger and tearfulness. EYE CONTACT: Eye contact is good except when he is tearful when he looks away. MOOD: Pt presents as angry and then anxious about the repercussions of his current situation where it relates to his job, home and 18 year old son who is still in school. AFFECT: Affect is mostly tearful, angry and flat APPETITE: Pt is eating regularly and ordered breakfast this am. SLEEP(trouble falling/staying asleep: Pt reported that he slept okay. Plan Pt will remain at [facility] pending acceptance for admission. He will be assessed twice daily by [facility] until such time as he is able to be placed or able to safely contract for safety. This would happen if and when the Pt starts to take some ownership of the events that lead to him being placed on an EE. Calls were made to [facility] - Full, [facility] - left name and number to be paged to admissions for a call back, [facility] - Full, [facility] - possible admission today, [facility] - no news yet. Pt accepted to [facility] before 05/02:30p on 08.14.2020. Signature Clinician's Name/Title: Annemarie Dunn MS, [facility] emergency Services Clinician, [facility]
[2020-10-14] MEDS: Sertraline 25 MG TAB PO (09:24)
[2020-10-14] MEDS: Losartan 25 MG TAB PO (09:24)
[2020-10-14] MEDS: hydroCHLOROthiazide 25 MG TAB PO (09:25)
[2020-10-14] MEDS: levETIRAcetam 250 MG TAB 500 MG PO (09:25)
--- NOTE | 2020-10-14 09:48 | NUR.NOTE ---
Nursing Note: At 0945 this RN took call from [facility] Nurse Brigid. Nurse to nurse report was given. Brigid verbally accepted patient to the center and requested the patient arrive by 1pm.
--- NOTE | 2020-10-14 10:17 | NUR.NOTE ---
Nursing Note: Huddle was conducted with this RN, Ailyn RN, Mague, Rubber Goods Inspector, Annemarie, [facility] Health & Dr. Jones to discuss temporary phone use per patients request. It was determined that the patient could use his personal phone for 1hr to call his cousin, perform banking, and speak to his son. No other activities are allowed. Dr. Jones spoke to the patient relaying this information. Patient agreed. Clint EMT brought the patient his phone and is monitoring use. CPSO in place outside room.
--- NOTE | 2020-10-14 10:25 | NUR.NOTE ---
10:15am Patient is allowed 1hr use of his phone. This PERSONAL SECRETARY is in room with patient monitoring phone use for 1hr. At 11:15 patients phone will be taken again.Patient tried to have cousin visit, but due to [facility] policy visitors are not allowed per his care plan. CPSO still remains outside room door.
[2020-10-14] MEDS: metFORMIN 500 MG TAB 1500 MG PO (11:01)
--- NOTE | 2020-10-14 11:19 | PDOC.CMSAFED ---
- If Service Date Differs Date of service: 10/14/20 Time of Service: 10:00 Care Management Safety Plan Status: Involuntary - Reason for Wait Reason for Wait: Inpatient Admission A huddle is done with Dr. Lisa Jones, ED provider, Mary Jane, RN, Ivonne, RN, Annemarie, [place], and ESE Bowser. Safety plan has been established to meet the needs of the patient, and consideration of the care team, to adhere to patient goals, identify restrictions based on behavioral status, address nutrition, and determine allowed personal belongings, tools for hygiene and personal care. Determine level of activity including ambulation, level of supervision, visitors, and determine privileges based on behaviors and level of engagement by pt. SAFETY PLAN: 1. Will remain in paper clothes per safety protocol. Patient has been accepted by [facility]. He is allowed to change into his own clothes prior to being transported to [place]. 2. Will remain in room under direct supervision of one-on-one staff at all times provided by CPSO, EMILY, SPECIFICATIONS WRITER content coordinator. 3. May have paper cups, plates, finger foods as well as a cardboard spoon with which to eat meals. 4. Follow [facility] Management of the Admitted Behavioral Health Patient policy. 5. Personal Care: May shower with supervision and at RN discretion. 6. No personal belongings except for heart monitor and cell phone he arrived with. 7. Visitors: None at this time. 8. Activities: Reading material, music tablet, and other activities at RN discretion. 9. Bathroom privileges with escort while in the ED. 10. Phone: May use hospital phone for incoming and outgoing phone calls at RN discretion. Is permitted use of his cell phone for one hour to conduct online banking and to notify family members of his acceptance at [facility] today. 11. Due to INVOLUNTARY status, patient is being held at [facility] by the Department of Mental Health ([facility]). A 2nd certification by [facility] Psychiatrist is performed this evening, upholding the EE. Staff will provide de-escalation support (CPI) as needed. If patient wishes to leave [facility], staff will contact [place] Crisis Screener ([phone]) and On-Call Veterinary Assistant Technician ([phone]) as soon as possible. In the event of elopement, notify [facility] Police ([phone]). Patient is currently involuntarily at [facility]. [place] Frontline Treatment Technician will continue seeking placement. Please contact the Wetlands Conservation Laborer Veterinary Assistant Technician ([phone]) for any needed changes to Safety Plan. Safety plan has been provided to interdepartmental care team. Patient will be transported by clinical specialist medical device at time of discharge.
--- NOTE | 2020-10-14 11:24 | CMPROGNOTE_ITS ---
- If Service Date Differs Date of service: 10/14/20 Time of Service: 11:24 Care Management Progress Note Ranjan is accepted for placement at [facility]. He will follow up with his counselor and discharge plan of care created by [place] upon discharge. Transport is provided by [facility]. - Status Status: Involuntary - Reason for Wait Reason for Wait: Inpatient Admission ([facility])
--- NOTE | 2020-10-14 11:37 | NUR.NOTE ---
contacted prema, patient's daughter to let her know that father has been transported to [facility].
== END 2020-10-14 11:20 ==
PROVIDERS: Emergency Medicine; Physician Assistant; Emergency Provider Student in an Organized Health Care Education/Training Program; PCP Nurse Practitioner Family
DX: F32.9 Major depressive disorder, single episode, unspecified (principal); M25.512 Pain in left shoulder; R45.851 Suicidal ideations; Z03.818 Encounter for observation for suspected exposure to other biological agents ruled out
CPT/HCPCS: 36416; 80053; 80307; 82962; 87635; 93005; 99285; 80320; 80329; 81003; 81015; 84439; 84443; 85025; 93010

== ENCOUNTER 2021-02-26 01:08 | Outpatient (CLI) | payer OTHER, SELFPAY ==
--- NOTE | 2021-02-26 | DI.RAD_ITS ---
Exam(s) XR KNEE RT 2V AP,LAT EXAM: XR KNEE RT 2V AP,LAT CLINICAL HISTORY: DISABILITY DETERMINATION, KNEE PAIN, DEGENERATIVE ARTHRITIS. TECHNIQUE: 2D digital imaging was performed. COMPARISON: No exams were available for comparison FINDINGS: There is evidence of prior ACL surgery(ies). There are advanced tricompartmental osteoarthritic degenerative changes. There is also what appears to be a calcified loose intra-articular body anteriorly in the knee joint space, this measuring 2.2 b y 1.3 cm. Intra-articular osteophytes also noted. No radiographic evidence of osteomyelitis. IMPRESSION: Previous ACL surgery. Advanced osteoarthritic degenerative changes in the right knee. DATA REPOSITORY: RADIATION DOSE DELIVERED:
--- NOTE | 2021-02-26 | DI.RAD_ITS ---
Exam(s) XR LUMBAR SPINE AP, LAT EXAM: XR LUMBAR SPINE AP, LAT CLINICAL HISTORY: DISABILITY DETERMINATION,DEGENERATIVE ARTHRITIS, BACK PAIN. TECHNIQUE: 2D digital imaging was performed. COMPARISON: No exams were available for comparison FINDINGS: There is no evidence compression fracture. There is anterolisthesis of L5 upon S1 due to bilateral p ars defects at L5 level. There is approximately 12 millimeters anterior slippage of L5 on S1. There is also moderate disc space narrowing at L5-S1 disc space. Mild disc space narrowing at L3-4 L1-2 l evels. There are bridging bilateral osteophytes L1-2 level. Also left lateral osteophytes at L 3-4 level. Sacroiliac joints appear unremarkable. There is no scoliosis in the lumbar spine. IMPRESSION: There is anterolisthesis of L5 upon S1 as described above, this being due to bilateral pars defects a t L5 level. DATA REPOSITORY: RADIATION DOSE DELIVERED:
== END 2021-02-26 01:28 ==
PROVIDERS: PCP Nurse Practitioner Family; Visit Provider Pediatrics Pediatric Rheumatology
DX: Z02.71 Encounter for disability determination (principal); M54.50 Low back pain, unspecified; M25.561 Pain in right knee; M43.17 Spondylolisthesis, lumbosacral region; M17.11 Unilateral primary osteoarthritis, right knee
CPT/HCPCS: 72100; 73560

== ENCOUNTER 2021-11-02 18:32 | Emergency (ER) | payer MEDICAID, SELFPAY ==
[2021-11-02] VITALS (34 sets, daily range): BP systolic 99–164; BP diastolic 73–97; PULSE 64–75; RESP 1–26; O2SAT 91–98
--- NOTE | 2021-11-02 19:00 | DI.RAD_ITS ---
Exam(s) XR PORTABLE CHEST AP EXAM: XR PORTABLE CHEST AP CLINICAL HISTORY: cough, sob, r/o acute disease. TECHNIQUE: 2D digital imaging was performed. COMPARISON: No exams were available for comparison FINDINGS: Single AP portable view. Heart size is upper normal. The mediastinum is not widened. Lungs are clear. No infiltrates nor obvious pleural effusions. IMPRESSION: No acute pulmonary findings on this single AP portable view of the chest. DATA REPOSITORY: RADIATION DOSE DELIVERED: All CT scans at this facility use at least one of these dose optimization techniques: automated exposure control; mA and/or kV adjustment per patient size (includes targeted e xams where dose is matched to clinical indication); or iterative reconstruction.
--- NOTE | 2021-11-02 19:03 | W.ED.GENAD ---
Discharge Plan Disposition Patient Disposition: HOME Condition: Stable Discharge Details Clinical Impression: Chronic cough, Chronic headache, Chronic sore throat, Shortness of breath, Asthma exacerbation in COPD Primary Care Provider: Mirna Vicente ED Provider: Omid Jones Home Meds and New Rx's Prescriptions: Continued Emgality Pen 120 mg/mL pen injector 240 mg subcut ONCE Qty: 2 0RF Rx Instructions: as a single dose; administer as two 120 mg injections at separate sites. prochlorperazine maleate [Compazine] 10 mg tablet 10 mg PO TID PRN (Reason: nausea and vomiting, headache) Qty: 30 1RF sertraline 100 mg tablet 100 mg PO DAILY levetiracetam 1,000 mg tablet 1,000 mg PO BID Qty: 60 5RF metformin [Glucophage] 500 mg tablet See Rx Instructions .ROUTE .COMPLEX Rx Instructions: 3 tabs am and 2 tabs HS cyclobenzaprine 10 mg tablet 10 mg PO HS PRN loratadine 10 mg tablet 10 mg PO DAILY PRN glipizide [Glucotrol XL] 10 MG tablet extended release 24hr 10 mg PO BID albuterol sulfate [ProAir HFA] 1 PUFF HFA aerosol inhaler 2 puff Inhalation Q4H PRN PRNQty: 1 0RF Label Comments: not using lately aspirin 81 MG tablet,chewable 81 mg PO DAILY hydrochlorothiazide 12.5 MG capsule 25 mg PO QAM Label Comments: unknown dose Victoza 2-Jesús 0.6 MG/0.1 ML pen injector 1.8 mg . DAILY AM Hold Instructions: Home Medication placed on hold at Doctor's office losartan 25 mg Tablet 25 mg PO DAILY insulin glargine [Lantus Solostar U-100 Insulin] 100 unit/mL (3 mL) Insulin Pen 22 unit SUBCUT HS pseudoephedrine-ibuprofen 30-200 mg Tablet 1 tab PO PRN PRN Excedrin Migraine 250-250-65 mg Tablet 1 tab PO ONCE Discharge Instructions Instructions: Chronic Bronchitis (ED) Additional Instructions: Please use albuterol inhaler as prescribed for wheezing or shortness of breath. Your blood sugar was elevated today at 299. Please take your insulin as prescribed. A 2.4 cm right lobe thyroid nodule noted on CT imaging, unchanged from 05/18/2020. It is recommended that you have follow-up ultrasound. Please discuss this with your primary care physician. A left adrenal nodule measuring 2.8 cm was noted and unchanged from 05/18/2020. Please discuss this with your primary care physician. Please contact your primary care physician to arrange follow-up. Return to the ER immediately for any worsening or new concerning symptoms. Referrals: Mirna Vicente [Primary Care Provider] - Discharge Data Discharge Date/Time-TO BE ENTERED AT DEPARTURE: 11/02/21 23:13 Medical Decision Making <Lalita Vail DO - Last Filed: 11/03/21 15:19> 1845 -- 55-year-old male with a history of morbid obesity, COPD, diabetes, sleep apnea, chronic chewing tobacco presents for sore throat and cough with blood-tinged sputum for the past few months, headache for the past few weeks with shortness of breath and fatigue today. Blood pressure hypertensive at 164/97. His oxygen saturation is 94-99% on room air. He is breathing comfortably and appears in no acute distress or nontoxic. His lungs are clear bilaterally. Normal oropharynx. No meningeal signs. Suspect viral syndrome or COVID. History and presentation does not appear consistent with cva, meningitis, acs, dissection or PE but due to report of shortness of breath with hemoptysis, will obtain a D-dimer, chest x-ray in addition to a rapid COVID. He endorses current shortness of breath but appears to be breathing comfortably. Will give a DuoNeb and reassess. 2019 -- Chest x-ray negative for acute disease. Covid negative. Patient reassessed and he feels that he is breathing better. O2 sat 93% on RA. He declines any additional neb treatment. D-dimer pending. Case endorsed to Dr. Jones to follow-up on D-dimer and if elevated will proceed with CT chest. Medical Records Medical records reviewed: Yes I reviewed the patient's medical records. Imaging Data Radiologic Study: Radiologist's impression: XR Chest Exam date and time: 11/02/2021 18:54 Age: 55 years old Clinical indication: Cough and shortness of breath; Patient HX: Cough, SOB, R/O acute disease TECHNIQUE: Imaging protocol: Radiologic exam of the chest. Views: 1 view. COMPARISON: CR XR CHEST 2V PA LATERAL 09/02/2020 14:07 FINDINGS: Lungs: Low lung volumes without significant airspace disease. Pleural spaces: No pleural effusion. No pneumothorax. Heart/Mediastinum: No cardiomegaly. Bones/joints: No acute fracture.? IMPRESSION: Low lung volumes without significant airspace disease. Lab Data Lab results reviewed: Yes I reviewed the patient's lab results. Labs: Laboratory Tests COVID-19 Source SARS-CoV-2 (PCR) (Negative) HPI <Lalita Vail DO - Last Filed: 11/03/21 15:19> General Mode of arrival: ambulatory. Date/Time Provider Initiated Documentation: 11/02/21 18:39. Limitations to Documentation: no limitations. Information obtained by: patient. HPI Narrative: Patient is a 55-year-old male with history of obesity, COPD, diabetes, hypertension, chewing tobacco presents for sore throat for the past few months, headache for the past few weeks and shortness of breath today. Patient endorses that he also has had a cough for several months for which she has occasionally coughed up clear blood-tinged sputum. He states he has only received 1 Moderna COVID-vaccine. He denies any known recent exposure to COVID. He denies any known fever, ear pain, chest pain, abdominal pain, vomiting or diarrhea. Related Data Home Medications Medication Instructions Recorded Confirmed albuterol sulfate 90 mcg/actuation 2 puff inhalation Q4H PRN PRN #1 07/31/12 11/02/21 aerosol inhaler (ProAir HFA) inh glipizide 10 mg tablet, extended 10 mg PO BID 07/31/12 11/02/21 release 24 hr (Glucotrol XL) aspirin 81 mg chewable tablet 81 mg PO DAILY 07/02/15 11/02/21 hydrochlorothiazide 12.5 mg capsule 25 mg PO QAM 06/07/17 11/02/21 liraglutide 0.6 mg/0.1 mL (18 mg/3 1.8 mg . DAILY AM 06/07/17 11/02/21 mL) subcutaneous pen injector (Victoza 2-Jesús) insulin glargine 100 unit/mL (3 22 unit subcut HS 05/12/20 11/02/21 mL) subcutaneous pen (Lantus Solostar U-100 Insulin) losartan 25 mg tablet 25 mg PO DAILY 05/12/20 11/02/21 cyclobenzaprine 10 mg tablet 10 mg PO HS PRN 07/03/20 11/02/21 loratadine 10 mg tablet 10 mg PO DAILY PRN 07/03/20 11/02/21 metformin 500 mg tablet See Rx Instructions .Route .COMPLEX 07/03/20 11/02/21 (Glucophage) levetiracetam 1,000 mg tablet 1,000 mg PO BID #60 tabs 11/11/20 11/02/21 sertraline 100 mg tablet 100 mg PO DAILY 11/11/20 11/02/21 galcanezumab-gnlm 120 mg/mL 240 mg (2 mL) subcut ONCE #2 mL 01/13/21 11/02/21 subcutaneous pen injector (Emgality Pen) prochlorperazine maleate 10 mg 10 mg PO TID PRN nausea and 01/13/21 11/02/21 tablet (Compazine) vomiting, headache #30 tabs zqkevui-fijbxkarjxupd-fnawrxgx 250 1 tab PO ONCE 11/02/21 11/02/21 mg-250 mg-65 mg tablet (Excedrin Migraine) pseudoephedrine-ibuprofen 30 1 tab PO PRN PRN 11/02/21 11/02/21 mg-200 mg tablet Previous Rx's Medication Instructions Recorded albuterol sulfate 90 mcg/actuation 2 puff inhalation Q4H PRN PRN #1 07/31/12 aerosol inhaler (ProAir HFA) inh levetiracetam 1,000 mg tablet 1,000 mg PO BID #60 tabs 11/11/20 galcanezumab-gnlm 120 mg/mL 240 mg (2 mL) subcut ONCE #2 mL 01/13/21 subcutaneous pen injector (Emgality Pen) prochlorperazine maleate 10 mg 10 mg PO TID PRN nausea and 01/13/21 tablet (Compazine) vomiting, headache #30 tabs Allergies Allergy/AdvReac Type Severity Reaction Status Date / Time codeine [Codeine] Allergy Mild Hives Unverified 03/17/21 15:04 lisinopril Allergy Anaphylaxsi Unverified 03/17/21 15:04 s Penicillins Allergy unknown Unverified 03/17/21 15:04 General Stated Complaint: SOB ASHLEY: 3 Review of Systems <Lalita Vail DO - Last Filed: 11/03/21 15:19> All systems reviewed & are unremarkable except as noted in HPI and below Constitutional Constitutional: Denies chills, Denies excessive sweating, Denies fatigue, Denies fever(s), Reports headache(s), Denies weakness and Denies weight loss Eyes Eyes: Reports system reviewed and no additional complaints, except as documented and Denies blurry vision ENT Ears, Nose, Mouth, and Throat: Denies vertigo, Denies dizziness, Denies otalgia, Reports headache(s), Denies nasal congestion, Reports sore throat and Denies throat swelling Cardiovascular Cardiovascular: Denies chest pain, Denies syncope, Denies rapid heart rate and Reports dyspnea Respiratory Respiratory: Denies chest congestion, Reports cough, Denies pain on inspiration and Reports dyspnea Gastrointestinal Gastrointestinal: Denies abdominal pain, Denies diarrhea and Denies vomiting Genitourinary Genitourinary: Denies hematuria, Denies dysuria and Denies flank pain Musculoskeletal Musculoskeletal: Denies back pain and Denies joint swelling Integumentary/Breasts Skin/Breast: Denies lesions and Denies rash Neurologic Neurologic: Denies behavioral changes, Denies confusion, Denies vertigo, Denies dizziness, Denies syncope, Reports headache(s), Denies localized weakness and Denies weakness Psychiatric Psychiatric: Denies behavioral changes, Denies confusion and Denies depression Endocrine Endocrine: Denies excessive sweating and Denies fatigue Hematologic/Lymphatic Hematologic/Lymphatic: Denies easy bruising and Denies lymphadenopathy Allergic/Immunologic Allergic/Immunologic: Denies throat swelling PFSH <Lalita Vail DO - Last Filed: 11/03/21 15:19> All Active Problems (Updated 11/02/21 @ 22:53 by Omid Jones MD) Chronic cough (Acute) Chronic headache (Acute) Chronic sore throat (Acute) Shortness of breath (Acute) Asthma exacerbation in COPD (Acute) Problems in relationship with spouse or partner (Acute) Problems related to other legal circumstances (Acute) Insurance coverage problems (Acute) Depression (Chronic) Laceration of head (Acute) Seizure-like activity (Acute) Migraine headache without aura (Acute) Medication overuse headache (Acute) Chronic headache (Acute) Irregular heart beat (Acute) Spell of altered cognition (Acute) Medical History Amputation of lower limb Asthma COPD (chronic obstructive pulmonary disease) Diabetes Erectile dysfunction Headache Hypertension Kidney stones Morbid obesity Phimosis Pituitary adenoma Seasonal allergies Sleep apnea Tobacco abuse Type 2 diabetes mellitus Surgical History History of knee surgery Family History Other Diabetes Social History Smoking/Tobacco Use Status: Current every day Tobacco Type: smokeless tobacco Smokeless tobacco user: chewing tobacco and snuff Smoking risk assessment performed?: Yes Alcohol Intake: current Alcohol Intake frequency: holidays/special occasions only Drug use: Never Substance use type: does not use Household members: children Number of Children: 4 Education Level: high school 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 [employer] Do you feel safe at home: Yes Do you feel safe in your relationship?: Yes Exam <Lalita Vail DO - Last Filed: 11/03/21 15:19> Const General: cooperative and healthy appearing Orientation: alert and awake HENMT Head: normal to inspection Ears: hearing grossly normal bilaterally, external ears normal and TM's normal bilaterally General nose exam: external nose normal Face and sinus: normal facial exam Mouth: oral mucosae normal Teeth and gingiva: dentition normal Throat: posterior oropharynx normal Eyes General: appearance normal, both eyes and all related structures Eyelids: eyelids normal Pupils: PERRL EOM: EOM intact bilaterally Neck Neck: normal visual inspection Lymphatic: no lymphadenopathy noted Chest Chest: normal inspection of the chest Resp Effort & Inspection: normal respiratory effort and able to speak in complete sentences Auscultation: clear to auscultation bilaterally Cardio Rate: regular rate Rhythm: regular rhythm GI Inspection: normal to inspection and obesity Palpation: soft, not firm, no guarding, no hepatosplenomegaly, no masses and nontender Auscultation: normal bowel sounds Back/Spine/Pelvis Back: no CVA tenderness Skin General skin exam: no rashes or lesions noted Neuro General: patient alert and patient awake Cognition: normal cognition Speech: speech normal Gait: normal gait Motor: muscle tone normal throughout Sensory Exam: no sensory deficits noted Extrem General: normal to inspection, full ROM and capillary refill normal Psych Appearance: grossly normal Mental Status: mental status grossly normal Speech and Movement: speech and movement normal Affect: normal affect Thought Process: normal Course <Lalita Vail DO - Last Filed: 11/03/21 15:19> Vital Signs Vital signs: Vital Signs Pulse 73 11/02/21 18:38 Respiratory Rate 18 11/02/21 18:38 Blood Pressure 164/97 H 11/02/21 18:38 Pulse Oximetry 98 11/02/21 18:38 Pulse 73 11/02/21 18:38 Respiratory Rate 20 11/02/21 18:41 Respiratory Effort Short of Breath 11/02/21 18:41 Respiratory Depth Normal 11/02/21 18:41 Respiratory Pattern Normal 11/02/21 18:41 Blood Pressure 164/97 H 11/02/21 18:38 Blood Pressure Position Supine 11/02/21 18:38 Pulse Oximetry 98 11/02/21 18:38 Oxygen Delivery Method Room Air 11/02/21 18:38 Oxygen Flow Rate 0 11/02/21 18:38 Pain Level 10 11/02/21 18:38 Comment 11/02/21 18:38 Sign Out <Lalita Vail DO - Last Filed: 11/03/21 15:19> Sign Out Data: Sign Out Comment: Follow-up on d dimer and covid result. If D dimer positive, obtain CT chest. Consider antivirals if positive for Covid. Last updated by Lalita Vail DO at 11/02/21 19:44 PAWSS <Lalita Vail DO - Last Filed: 11/03/21 15:19> Have you Been Recently Intoxicated or Drunk Within the Last 30 days?: No Have you Ever Experienced Previous Episodes of Alcohol Withdrawal?: No Have you ever Experienced Withdrawal Seizures?: No Have you ever Experienced Delirium Tremens(DT)s?: No Have you ever undergone Alcohol Rehabilitation Treatment (i.e, inpt ot outpatient treatment programs)?: No Have you ever Experienced Blackouts?: No Have you ever Combined Alcohol with other Downers within the last 90 days?: No Have you ever Combined Alcohol with any other Substance of Abuse during the last 90 days?: No Positive Blood Alcohol level on Presentation? [PCS.BAL]: No Evidence of Increased Autonomic Activity (i.e. HR>120, tremor, sweating, agitation, nausea)?: No Result: 0 <Omid Jones MD - Last Filed: 11/13/21 07:59> Result: 0
[2021-11-02 19:23] LABS: Source Nasal/Nares
--- NOTE | 2021-11-02 19:24 | DI.VRAD_ITS ---
PROCEDURE INFORMATION: Exam: XR Chest Exam date and time: 11/02/2021 18:54 Age: 55 years old Clinical indication: Cough and shortness of breath; Patient HX: Cough, SOB, R/O acute disease TECHNIQUE: Imaging protocol: Radiologic exam of the chest. Views: 1 view. COMPARISON: CR XR CHEST 2V PA LATERAL 09/02/2020 14:07 FINDINGS: Lungs: Low lung volumes without significant airspace disease. Pleural spaces: No pleural effusion. No pneumothorax. Heart/Mediastinum: No cardiomegaly. Bones/joints: No acute fracture. IMPRESSION: Low lung volumes without significant airspace disease. Dictated and Authenticated by: Jeannie Bourgeois MD. Ordering:PRATEEK Celis MD
[2021-11-02] MEDS: Albuterol/Ipratropium 3 ML UPD VIAL UPD (19:50)
[2021-11-02 20:15] LABS: COVID-19 PCR Negative (Negative)
--- NOTE | 2021-11-02 20:30 | DI.CT_ITS ---
Exam(s) CT CHEST PE CTA EXAM: CT CHEST PE CTA CLINICAL HISTORY: shortness of breath, elevated ddimer. TECHNIQUE: Imaging Protocol: CT angiography of the chest was performed using pulmonary embolus jaylyn col. Multi planar reconstructions were performed. CONTRAST MATERIAL: Intravenous: Omnipaque 350 Contrast volume: 100 cc COMPARISON: CT CT CHEST PE CTA from 05/18/2020 FINDINGS: CHEST: PULMONARY ARTERIES: There are no intraluminal filling defects to suggest acute pulmonary emboli. LUNGS: There are no infiltrates nor evidence of pulmonary infarction.. There are no infiltrates nor o minous pulmonary nodules. There are no pleural effusions. No significant focal findings in trachea and mainstem bronchi MEDIASTINUM: There is no hilar nor mediastinal adenopathy. Nodule in the posterior aspect of the righ t thyroid lobe is again noted.. CARDIAC: Heart size is upper normal. There is no pericardial effusion.Caliber of the thoracic aorta is within normal limits. No evidence of aortic dissection. There is no significant shift of the inte rventricular septum. PARTIALLY VISUALIZED UPPERMOST ABDOMEN: Hepatomegaly and hepatic steatosis. Spleen also appears slig htly enlarged. Nodule in the left adrenal gland is noted, measuring 2.8 x 1.9 cm, unchanged in size, favoring adenoma. OSSEOUS: No significant osseous lesions.. IMPRESSION: 1. No evidence of acute pulmonary emboli. No evidence of pulmonary infarction.No pleural effusions. 2. Right thyroid lobe nodule again noted. This can be further studied with ultrasound 3. Hepatomegaly and hepatic steatosis again noted. Also mild splenomegaly. Left adrenal nodule measuring 2.8 x 1.9 cm is unchanged from 05/18/2020, favoring diagnosis of adenom a. RADIATION DOSE DELIVERED: 635.16mGy.cm Total DLP DATA REPOSITORY: All CT scans at this facility are submitted to the National Radiology Data Registry (NRDR) Dose Index Registry (DIR) with the [employer] ([employer]). RADIATION OPTIMIZATION: All CT scans at this facility use at least one of these dose optimization te chniques: automated exposure control; mA and/or kV adjustment per patient size (includes targeted exa ms where dose is matched to clinical indication); or iterative reconstruction.
[2021-11-02 20:37] LABS: D-Dimer 782 ng/mlFEU (<500)
--- NOTE | 2021-11-02 21:14 | W.EDPROG ---
Date of service: 11/02/21 Time of Service: 21:14 Medical Decision Making Care signed out by Dr. Vail, please see her documentation regarding initial ED presentation course. Plan at signout was to follow-up on D-dimer and reassess patient for disposition. D-dimer resulted and is elevated. Plan to proceed to CT of the chest to rule out pulmonary embolism. Plan discussed with the patient who is in agreement. I will add on chemistry and CBC. Patient was reassessed after neb treatment and did note improvement in shortness of breath. -- CTA of the chest was interpreted by radiology: IMPRESSION: 1. No evidence of pulmonary embolism or aortic dissection. 2. No acute thoracic process is evident. 3. 2.4 cm right lobe thyroid nodule unchanged from 05/18/2020. Recommend nonemergent thyroid ultrasound assessment. 4. Splenomegaly. 5. Fatty liver and suspected hepatomegaly, incompletely visualized. 6. Left adrenal nodule measuring 2.8 cm is unchanged from 05/18/2020, favoring benign adenoma. Labs reviewed and hyperglycemia noted. No anion gap acidosis. All results were discussed with the patient. Patient reassessed remained stable. Plan for discharge with outpatient follow-up. Lab Data Lab results reviewed: Yes I reviewed the patient's lab results. Labs: Laboratory Tests Range/Units 11/02/21 11/02/21 11/02/21 19:03 19:40 21:25 WBC (4.4-10.8) 10^3/uL RBC (4.36-5.78) 10^6/uL Hgb (13.5-17.5) g/dL Hct (40.0-50.0) % MCV (80-95) fL MCH (27.0-33.0) pg MCHC (32.0-36.0) % RDW (11.8-14.1) % Plt Count (130-400) 10^3/uL MPV (8.0-11.0) fL Immature Gran % Neutrophils % Lymphocytes % Monocytes % Eosinophils % Basophils % Nucleated RBC % (0.0-0.3) % Absolute Neutrophils (1.2-6.7) 10^3/uL Absolute Lymphocytes (1.2-3.4) 10^3/uL Absolute Monocytes (0.1-0.8) 10^3/uL Absolute Eosinophils (0.0-0.7) 10^3/uL Absolute Basophils (0.0-0.2) 10^3/uL RBC Morphology D-Dimer (<500) ng/mlFEU 782 H Sodium (136-145) mmol/L 134 L Potassium (3.5-5.1) mmol/L 4.0 Chloride (98-107) mmol/L 98 Carbon Dioxide (21.0-32.0) mmol/L 27.8 Anion Gap (3-11) mmol/L 8.2 BUN (7-18) mg/dL 16 Creatinine (0.70-1.30) mg/dL 1.0 Estimated GFR/1.73 m2 (mL/min/1.73m2) >= 60.00 Glucose (74-106) mg/dL 299 H Calcium (8.5-10.1) mg/dL 9.4 Total Bilirubin (0.2-1.0) mg/dL 0.3 AST (15-37) U/L 29 ALT (16-63) U/L 38 Alkaline Phosphatase (46-116) U/L 111 Total Protein (6.4-8.2) g/dL 8.9 H Albumin (3.4-5.0) g/dL 4.0 COVID-19 Source Nasal/Nares SARS-CoV-2 (PCR) (Negative) Negative Range/Units 11/02/21 21:25 WBC (4.4-10.8) 10^3/uL 10.88 H RBC (4.36-5.78) 10^6/uL 6.31 H Hgb (13.5-17.5) g/dL 16.6 Hct (40.0-50.0) % 51.5 H MCV (80-95) fL 82 MCH (27.0-33.0) pg 26.3 L MCHC (32.0-36.0) % 32.2 RDW (11.8-14.1) % 14.6 H Plt Count (130-400) 10^3/uL 240 MPV (8.0-11.0) fL 9.4 Immature Gran % 0.6 Neutrophils % 62.4 Lymphocytes % 28.6 Monocytes % 5.9 Eosinophils % 1.7 Basophils % 0.8 Nucleated RBC % (0.0-0.3) % 0.0 Absolute Neutrophils (1.2-6.7) 10^3/uL 6.79 H Absolute Lymphocytes (1.2-3.4) 10^3/uL 3.11 Absolute Monocytes (0.1-0.8) 10^3/uL 0.64 Absolute Eosinophils (0.0-0.7) 10^3/uL 0.18 Absolute Basophils (0.0-0.2) 10^3/uL 0.09 RBC Morphology Normal D-Dimer (<500) ng/mlFEU Sodium (136-145) mmol/L Potassium (3.5-5.1) mmol/L Chloride (98-107) mmol/L Carbon Dioxide (21.0-32.0) mmol/L Anion Gap (3-11) mmol/L BUN (7-18) mg/dL Creatinine (0.70-1.30) mg/dL Estimated GFR/1.73 m2 (mL/min/1.73m2) Glucose (74-106) mg/dL Calcium (8.5-10.1) mg/dL Total Bilirubin (0.2-1.0) mg/dL AST (15-37) U/L ALT (16-63) U/L Alkaline Phosphatase (46-116) U/L Total Protein (6.4-8.2) g/dL Albumin (3.4-5.0) g/dL COVID-19 Source SARS-CoV-2 (PCR) (Negative) Sign Out Sign Out Data: Sign Out Comment: Follow-up on d dimer and covid result. If D dimer positive, obtain CT chest. Consider antivirals if positive for Covid. Last updated by Lalita Vail DO at 11/02/21 19:44 Discharge Plan Disposition Patient Disposition: HOME Condition: Stable Discharge Details Clinical Impression: Chronic cough, Chronic headache, Chronic sore throat, Shortness of breath, Asthma exacerbation in COPD Primary Care Provider: Mirna Vicente ED Provider: Omid Jones Home Meds and New Rx's Prescriptions: Continued Emgality Pen 120 mg/mL pen injector 240 mg subcut ONCE Qty: 2 0RF Rx Instructions: as a single dose; administer as two 120 mg injections at separate sites. prochlorperazine maleate [Compazine] 10 mg tablet 10 mg PO TID PRN (Reason: nausea and vomiting, headache) Qty: 30 1RF sertraline 100 mg tablet 100 mg PO DAILY levetiracetam 1,000 mg tablet 1,000 mg PO BID Qty: 60 5RF metformin [Glucophage] 500 mg tablet See Rx Instructions .ROUTE .COMPLEX Rx Instructions: 3 tabs am and 2 tabs HS cyclobenzaprine 10 mg tablet 10 mg PO HS PRN loratadine 10 mg tablet 10 mg PO DAILY PRN glipizide [Glucotrol XL] 10 MG tablet extended release 24hr 10 mg PO BID albuterol sulfate [ProAir HFA] 1 PUFF HFA aerosol inhaler 2 puff Inhalation Q4H PRN PRNQty: 1 0RF Label Comments: not using lately aspirin 81 MG tablet,chewable 81 mg PO DAILY hydrochlorothiazide 12.5 MG capsule 25 mg PO QAM Label Comments: unknown dose Victoza 2-Jeúss 0.6 MG/0.1 ML pen injector 1.8 mg . DAILY AM Hold Instructions: Home Medication placed on hold at Doctor's office losartan 25 mg Tablet 25 mg PO DAILY insulin glargine [Lantus Solostar U-100 Insulin] 100 unit/mL (3 mL) Insulin Pen 22 unit SUBCUT HS pseudoephedrine-ibuprofen 30-200 mg Tablet 1 tab PO PRN PRN Excedrin Migraine 250-250-65 mg Tablet 1 tab PO ONCE Discharge Instructions Instructions: Chronic Bronchitis (ED) Additional Instructions: Please use albuterol inhaler as prescribed for wheezing or shortness of breath. Your blood sugar was elevated today at 299. Please take your insulin as prescribed. A 2.4 cm right lobe thyroid nodule noted on CT imaging, unchanged from 05/18/2020. It is recommended that you have follow-up ultrasound. Please discuss this with your primary care physician. A left adrenal nodule measuring 2.8 cm was noted and unchanged from 05/18/2020. Please discuss this with your primary care physician. Please contact your primary care physician to arrange follow-up. Return to the ER immediately for any worsening or new concerning symptoms. Referrals: Mirna Vicente [Primary Care Provider] - Discharge Data Discharge Date/Time-TO BE ENTERED AT DEPARTURE: 11/02/21 23:13
[2021-11-02 21:33] LABS: Abs Immature Grans 0.07 10^3/uL (0.0-0.06); Absolute Basophil Count 0.09 10^3/uL (0.0-0.2); Absolute Eosinophil Count 0.18 10^3/uL (0.0-0.7); Absolute Lymphocyte Count 3.11 10^3/uL (1.2-3.4); Absolute Monocyte Count 0.64 10^3/uL (0.1-0.8); Absolute Neutrophil Count 6.79 10^3/uL (1.2-6.7); Basophils % 0.8; Eosinophils % 1.7; HCT 51.5 % (40.0-50.0); HGB 16.6 g/dL (13.5-17.5); Immature Grans % 0.6; Lymphocytes % 28.6; MCH 26.3 pg (27.0-33.0); MCHC 32.2 % (32.0-36.0); MCV 82 fL (80-95); MPV 9.4 fL (8.0-11.0); Monocytes % 5.9; Neutrophils % 62.4; Platelet Count 240 10^3/uL (130-400); RBC 6.31 10^6/uL (4.36-5.78); RDW 14.6 % (11.8-14.1); RDW-SD 43.1 fL; WBC 10.88 10^3/uL (4.4-10.8)
[2021-11-02 21:48] LABS: ALT 38 U/L (16-63); AST 29 U/L (15-37); Alkaline Phosphatase 111 U/L (46-116); Anion Gap 8.2 mmol/L (3-11); BUN 16 mg/dL (7-18); Bilirubin, Total 0.3 mg/dL (0.2-1.0); CO2 27.8 mmol/L (21.0-32.0); Calcium 9.4 mg/dL (8.5-10.1); Chloride 98 mmol/L (98-107); Glucose 299 mg/dL (74-106); Sodium 134 mmol/L (136-145); Total Protein 8.9 g/dL (6.4-8.2)
[2021-11-02 21:54] LABS: Diff Comment RBC Morph Reviewed; RBC Morphology Normal
[2021-11-02] MEDS: Omnipaque 350 MG/ML 100 ML BTL IJ (22:00)
[2021-11-02] MEDS: Normal Saline Flush 10 ML SYR IVP (22:01)
--- NOTE | 2021-11-02 22:42 | DI.VRAD_ITS ---
PROCEDURE INFORMATION: Exam: CTA Chest With Contrast Exam date and time: 11/02/2021 10:04 PM Age: 55 years old Clinical indication: Abnormal findings; Abnormal diagnostic tests; Shortness of breath; Patient HX: SOB, elevated d-dimer TECHNIQUE: Imaging protocol: Computed tomographic angiography of the chest with contrast. 3D rendering (Not supervised by radiologist): MIP and/or 3D reconstructed images were created by the technologist. Radiation optimization: All CT scans at this facility use at least one of these dose optimization techniques: automated exposure control; mA and/or kV adjustment per patient size (includes targeted exams where dose is matched to clinical indication); or iterative reconstruction. Contrast material: OMNIPAQUE 350; Contrast volume: 100 ml; Contrast route: INTRAVENOUS (IV); COMPARISON: CT CHEST PE CTA 05/18/2020 3:33 PM FINDINGS: Pulmonary arteries: The pulmonary arteries enhance appropriately with no evidence of pulmonary embolism. Aorta: The aorta enhances appropriately without evidence of dissection or aneurysm. No mediastinal hematoma. Thyroid: Partially calcified solid-appearing nodule in the posterior right thyroid lobe adjacent to the esophagus measuring up to 2.4 cm in size, grossly unchanged from 05/18/2020. Nonemergent thyroid ultrasound assessment recommended. Lungs: No acute tracheobronchial abnormalities. No gross pulmonary infiltrates or edema pattern. Minor subsegmental atelectasis in the lower lobes. No pulmonary mass lesions are identified. Pleural spaces: No pleural effusion. No pneumothorax. Heart: Heart size normal. No pericardial effusion. Mediastinal space: The esophagus is largely contracted but demonstrates no gross abnormality. Lymph nodes: No supraclavicular or axillary adenopathy. No mediastinal or hilar adenopathy. Liver: Fatty liver. Suspect hepatomegaly although extending off the edge of the field of view. Spleen: Mild splenomegaly measuring 15.3 cm. Adrenal glands: Left adrenal nodule measuring 2.8 x 2.2 cm, unchanged from 05/18/2020 and described on prior CT report from 12/24/2013, favoring longstanding benign adenoma. Bones/joints: No acute osseous abnormalities are identified. Soft tissues: The soft tissues of the chest wall demonstrate no acute abnormality. There are few small subcutaneous varices in the anterior chest wall which are unchanged. IMPRESSION: 1. No evidence of pulmonary embolism or aortic dissection. 2. No acute thoracic process is evident. 3. 2.4 cm right lobe thyroid nodule unchanged from 05/18/2020. Recommend nonemergent thyroid ultrasound assessment. 4. Splenomegaly. 5. Fatty liver and suspected hepatomegaly, incompletely visualized. 6. Left adrenal nodule measuring 2.8 cm is unchanged from 05/18/2020, favoring benign adenoma. Dictated and Authenticated by: Dao Garay MD. Ordering:GALE Anne MD
== END 2021-11-02 23:13 | disposition home or self-care (01) ==
PROVIDERS: Physician Assistant; Emergency Provider Student in an Organized Health Care Education/Training Program; PCP Nurse Practitioner Family
DX: J45.901 Unspecified asthma with (acute) exacerbation (principal); J44.9 Chronic obstructive pulmonary disease, unspecified; R51.9 Headache, unspecified; E04.1 Nontoxic single thyroid nodule; E27.8 Other specified disorders of adrenal gland; E11.65 Type 2 diabetes mellitus with hyperglycemia; I10 Essential (primary) hypertension; F17.220 Nicotine dependence, chewing tobacco, uncomplicated; F17.290 Nicotine dependence, other tobacco product, uncomplicated; Z20.822 Contact with and (suspected) exposure to COVID-19; Z28.311 Partially vaccinated for COVID-19; Z79.4 Long term (current) use of insulin; Z79.84 Long term (current) use of oral hypoglycemic drugs
CPT/HCPCS: 71275; 80053; 87635; 94640; 99284; 99285; 71045; 85025; 85379; J3490; J7620

== ENCOUNTER 2022-02-01 10:36 | Day surgery (SDC) | payer MEDICAID, SELFPAY ==
--- NOTE | 2022-02-01 06:53 | ENDO_ITS ---
Date of service: 02/01/22 Time of Service: 14:10 Endoscopy Report DATE OF PROCEDURE: 02/01/22 PRE-OP DIAGNOSIS: Dysphagia and Hematemesis POST-OP DIAGNOSIS: other (erosive gastritis and esophagitis) PROCEDURE: EGD with biopsies SURGEON: Maura Bacon ANESTHESIA TYPE: General:No Airway ESTIMATED BLOOD LOSS: 5 PATHOLOGY: other (Bx of antrum, body and esophago gastric junction) COMPLICATIONS: None DISPOSITION: same day INDICATIONS: Mr. Leslie is a 56-year-old gentleman with hematemesis and dysphagia who came in today to discuss an upper endoscopy.? He has a past medical history of hypertension and diabetes which are not well controlled.? He also has a lot of nausea.? He chews a can of tobacco a day.? He also has seizure-like activity which he is on Keppra for.? We did discuss the procedure in detail as well as th e preparation.? I was very clear with him that he cannot chew tobacco the morning of the procedure.? If he does chew then we will have to cancel the procedure.? He may not eat or drink anything after midnight.? He may take his medications with a sip of water.? Risks, benefits and complications have been reviewed. Complications include but are not limited to bleeding, pain, perforation, sore throat, aspiration, and adverse reaction to the medications.? Questions were entertained and answered to their satisfaction and they wished to proceed. No guarantees were given or implied. Proceed with EGD as soon as possible secondary to his history of hematemesis and dysphagia with concern for a mass. FINDINGS: Erosive gastritis inflammation of the GE junction PROCEDURE DESCRIPTION: After informed consent was obtained the patient was take to the procedure room and placed in a supine position. Monitors were applied and a time out was done. The patients name, date of , procedure type, allergies to medications and metal in their body was reviewed. A bite block was placed and the patient was sedated. Once sedated and comfortable the gastroscope was advanced through the oropharynx which was grossly normal into the esophagus. The proximal and mid- esophagus were normal. In the distal esophagus there was moderate inflammation noted. The scope was advanced into the stomach and through the pylorus into the 3rd portion of the duodenum. The duodenum was noted to be normal. The scope was retracted back into the stomach and biopsies were done of the antrum and body to rule out H. pylori. There were no ulcers. The scope was retroflexed. The cardia and fundus were noted to be normal. There was no hiatal hernia noted. The scope was retracted back into the esophagus and biopsies were done of the GE junction to rule out Fine's. The Z line was regular. The GE junction was at 35 cm. The scope was removed and the patient was woken up and taken back to [facility] in stable condition. Follow up: 2 weeks. Patient will be started on Omeprazole BID
--- NOTE | 2022-02-01 06:54 | W.PM.DSUDISC ---
Discharge Plan Disposition Patient Disposition: HOME Condition: Good Discharge Details Reason For Visit: colonoscopy Attending Provider: Maura Bacon Primary Care Provider: Mirna Vicente Home Meds and New Rx's Prescriptions: New omeprazole 40 mg capsule,delayed release(DR/EC) 40 mg PO BID Qty: 60 0RF Continued Emgality Pen 120 mg/mL pen injector 240 mg subcut ONCE Qty: 2 0RF Rx Instructions: as a single dose; administer as two 120 mg injections at separate sites. prochlorperazine maleate [Compazine] 10 mg tablet 10 mg PO TID PRN (Reason: nausea and vomiting, headache) Qty: 30 1RF sertraline 100 mg tablet 100 mg PO DAILY metformin [Glucophage] 500 mg tablet See Rx Instructions .ROUTE .COMPLEX Rx Instructions: 3 tabs am and 2 tabs HS cyclobenzaprine 10 mg tablet 10 mg PO HS PRN loratadine 10 mg tablet 10 mg PO DAILY PRN Victoza 2-Jesús 0.6 mg/0.1 mL (18 mg/3 mL) pen injector 0.6 mg subcut DAILY levetiracetam [Keppra] 1,000 mg tablet 2,000 mg PO DAILY glipizide [Glucotrol XL] 10 MG tablet extended release 24hr 10 mg PO BID albuterol sulfate [ProAir HFA] 1 PUFF HFA aerosol inhaler 2 puff Inhalation Q4H PRN PRNQty: 1 0RF Label Comments: not using lately aspirin 81 MG tablet,chewable 81 mg PO DAILY hydrochlorothiazide 12.5 MG capsule 25 mg PO QAM Label Comments: unknown dose Victoza 2-Jesús 0.6 MG/0.1 ML pen injector 1.8 mg . DAILY AM Hold Instructions: Home Medication placed on hold at Doctor's office losartan 25 mg Tablet 25 mg PO DAILY insulin glargine [Lantus Solostar U-100 Insulin] 100 unit/mL (3 mL) Insulin Pen 22 unit SUBCUT HS pseudoephedrine-ibuprofen 30-200 mg Tablet 1 tab PO PRN PRN Excedrin Migraine 250-250-65 mg Tablet 1 tab PO ONCE Discharge Instructions Instructions: Gastritis (DC), Diet for Stomach Ulcers and Gastritis (ED), Esophagitis (DC) Additional Instructions: Findings: Severe inflammation of the stomach and inflammation of the esophagus Follow up: 2 weeks in the office Please call if you develop: fevers >101.5 Nausea or Vomiting Abdominal pain that is not transient Rectal bleeding that is more then a tbsp A hard abdomen and inability to pass gas DAY SURGERY UNIT POST ENDOSCOPY INSTRUCTIONS Instructions for everyone who is given Anesthesia: For your safety, please do the following for the next 24 Hours: a. Do not drive or operate dangerous equipment b. Do not drink alcohol beverages or use any recreational drugs for the first 24 hours or while taking pain medications. The medications in your body may have a reaction that can be dangerous. c. Do not make any important decisions or sign any important papers 1. Generally there are no restrictions on your activity after a day or so has gone by, but you may feel a bit fatigued for a few days. 2. After you arrive home you may have a light meal and return to a normal diet as you can tolerate it without feeling sick to your stomach. 3. After surgery, you may feel pain or discomfort. This should be only transient, but if it persists please contact your doctor. 4. If there are any questions regarding the findings of your procedure, please feel free to contact your doctor. 6. If you are unable to contact your doctor with a problem, contact the hospital at [phone]. 7. Continue all your regular medications unless directed otherwise. I understand the above instructions and have no questions. Signature of Patient or Responsible Adult Escort Date/Time Name of Responsible Adult Escort Signature of Nurse Date/Time Referrals: Maura Bacon MD [ [facility] STAFF PHYSICIAN] - Activity:: Activity as Tolerated Diet:: low acid Discharge Orders Discharge Orders: Discharge Order (Routine); Ordered 02/01/22 Ordered By: Maura Bacon
[2022-02-01 11:25] VITALS: BP 132/95; PULSE 73; TEMP 37; O2SAT 98
[2022-02-01] MEDS: Lactated Ringers 1,000 ML 80 ML IV (11:45)
--- NOTE | 2022-02-01 12:06 | W.ANESPRE ---
General Info Date of Service Date Performed: 02/01/22 Height: 5 ft 7 in Weight: 114.1 kg Body Mass Index (BMI): 39.4 Surgical Procedure: Operation Date: 02/01/22 12:05 Proposed Procedure Side Surgeon p Gastroscopy Maura Bacon MD Meds Allergies and Home Medications Allergies Allergy/AdvReac Type Severity Reaction Status Date / Time Penicillins Allergy Severe Anaphylaxis Unverified 02/01/22 11:18 codeine [Codeine] Allergy Mild Hives Unverified 02/01/22 11:18 lisinopril Allergy Anaphylaxsi Unverified 02/01/22 11:18 s Home Medication Medication Instructions Recorded albuterol sulfate 90 mcg/actuation 2 puff inhalation Q4H PRN PRN #1 07/31/12 aerosol inhaler (ProAir HFA) inh glipizide 10 mg tablet, extended 10 mg PO BID 07/31/12 release 24 hr (Glucotrol XL) aspirin 81 mg chewable tablet 81 mg PO DAILY 07/02/15 hydrochlorothiazide 12.5 mg capsule 25 mg PO QAM 06/07/17 liraglutide 0.6 mg/0.1 mL (18 mg/3 1.8 mg . DAILY AM 06/07/17 mL) subcutaneous pen injector (Victoza 2-Jesús) insulin glargine 100 unit/mL (3 22 unit subcut HS 05/12/20 mL) subcutaneous pen (Lantus Solostar U-100 Insulin) losartan 25 mg tablet 25 mg PO DAILY 05/12/20 cyclobenzaprine 10 mg tablet 10 mg PO HS PRN 07/03/20 loratadine 10 mg tablet 10 mg PO DAILY PRN 07/03/20 metformin 500 mg tablet See Rx Instructions .Route .COMPLEX 07/03/20 (Glucophage) sertraline 100 mg tablet 100 mg PO DAILY 11/11/20 galcanezumab-gnlm 120 mg/mL 240 mg (2 mL) subcut ONCE #2 mL 01/13/21 subcutaneous pen injector (Emgality Pen) prochlorperazine maleate 10 mg 10 mg PO TID PRN nausea and 01/13/21 tablet (Compazine) vomiting, headache #30 tabs qsujiup-jhxtkmbzmehin-jjjjiebt 250 1 tab PO ONCE 11/02/21 mg-250 mg-65 mg tablet (Excedrin Migraine) pseudoephedrine-ibuprofen 30 1 tab PO PRN PRN 11/02/21 mg-200 mg tablet levetiracetam 1,000 mg tablet 2,000 mg PO DAILY 01/21/22 (Keppra) liraglutide 0.6 mg/0.1 mL (18 mg/3 0.6 mg subcut DAILY 01/21/22 mL) subcutaneous pen injector (Victoza 2-Jesús) Current Visit Medications: Current Medications Generic Name Dose Route Start Last Admin Trade Name Freq PRN Reason Stop Dose Admin Hyoscyamine Sulfate 0.125 mg 02/01/22 06:55 Hyoscyamine 0.125 Mg Sl/Oral/Chew SL DIRECTED PRN Ringer's Solution 1,000 mls @ 80 mls/hr 02/01/22 06:00 02/01/22 11:45 IV 02/28/22 23:59 80 mls/hr INFUSION SILVANO Administration IV Miscellaneous Supplies 1 each 02/01/22 06:00 Iv Access IV 02/28/22 23:59 DIRECTED SILVANO Ondansetron HCl 4 mg 02/01/22 06:55 Ondansetron 4 Mg/2 Ml Vial IVP Q4H PRN PRN Nausea / Vomiting Sodium Chloride 0 ml 02/01/22 06:00 Normal Saline Flush 10 Ml Syr IV 02/28/22 23:59 PRN PRN Sodium Chloride 0 ml 02/01/22 06:00 Normal Saline 10 Ml Vial IJ 02/28/22 23:59 DIRECTED PRN Sterile Water 0 ml 02/01/22 06:00 Water,Injection,Sterile 10 Ml Vial IJ 02/28/22 23:59 DIRECTED PRN PFSH Active Problems Active Problems: Problem Status Onset Code Spell of altered cognition R41.89 Irregular heart beat I49.9 Chronic headache R51.9, G89.29 Medication overuse headache G44.40 Migraine headache without aura G43.009 Seizure-like activity R56.9 Laceration of head S01.91XA Depression F32.9 Insurance coverage problems Z59.89 Problems related to other legal circumstances Z65.3 Problems in relationship with spouse or partner Z63.0 Hematemesis K92.0 Pharyngoesophageal dysphagia R13.14 Thyroid nodule E04.1 Medical History Medical History Abdominal pain, LLQ Adjustment disorder Amputation of lower limb Asthma Lanza angioma COPD (chronic obstructive pulmonary disease) Diabetes Edema Erectile dysfunction Frequent PVCs Grief reaction Headache Hypertension Kidney stones Marital problem Morbid obesity Other problems related to social environment Personal history of fall Phimosis Pituitary adenoma Seasonal allergies Sleep apnea Suicidal ideation Thyroid mass Tobacco abuse Transient neurological symptoms Seizure-like activity pt. states mild shaking lasting a minute 01/29/22 Type 2 diabetes mellitus Medical History Comments:: Ashleyanant 1-2x week Surgical History Surgical History History of knee surgery Hx of foot surgery left r/t logging accident; hardware present Tobacco Smoking/Tobacco Use Status: Current every day Tobacco Type: smokeless tobacco Smokeless tobacco user: chewing tobacco and snuff Alcohol Alcohol Intake: current Alcohol intake frequency: holidays/special occasions only Substance Use Substance use: Occasionally Substance use type: marijuana (Last use 2 days ago) Details: 1-2 week Vital Signs and Lab Results Vital Signs Most Recent Vital Signs in EMR: Most Recent Vital Signs Temp Pulse BP Pulse Ox 37 C 73 132/95 H 98 02/01/22 11:25 02/01/22 11:25 02/01/22 11:25 02/01/22 11:25 Point of Care Results Point of Care Results: Finger Stick Blood Glucose 106 02/01/22 11:45 Lab Results Blood Type / Crossmatch: No Data to Display Complete Blood Count: No Data to Display Complete Metabolic Panel: No Data to Display Liver Function Panel: No Data to Display Coagulation Panel: No Data to Display Cardiac Panel: No Data to Display Arterial Blood Gas: No Data to Display Venous Blood Gas: No Data to Display Pancreas Panel: No Data to Display Thyroid Panel: No Data to Display Infectious Disease: No Data to Display Blood Cultures: No Data to Display Toxicology Panel: No Data to Display Anesthesia Assessment and Plan Anesthesia History Personal History: No History of Anesthesia Complications Family History: No Family History of Anesthesia Complications Exercise Tolerance Exercise Tolerance: Metabolic Equivalents>4 Pertinent Negatives Pertinent Negatives: No Symptoms of GERD Cardiac & Pulmonary Exam Cardiac Exam: Normal S1/S2 Heart Sounds Pulmonary Exam: Clear Bilateral Breath Sounds Implantable Cardiac Device Does patient have a Pacemaker or an ICD?: No Airway Exam Known Difficult Airway: No Mallampati Class: 4 Mouth Opening: Normal (> 3cm) Thyromental Distance: Greater than 3 cm Neck Range of Motion: Full ROM Neck Circumference: Thick Teeth Condition: Normal Dentition ASA Classification ASA Score: ASA 3 Emergency Case?: No NPO Status NPO Status: NPO Clears >2 hours, Solids >8 hours Anesthesia Plan Resuscitation Status: Full Code Anesthesia Technique: General Anesthesia Airway Planned: Natural Airway Monitors Used: Standard Monitors
[2022-02-01 12:13] VITALS: BMI 39.4
--- NOTE | 2022-02-01 13:38 | STOM_PTH ---
PATIENT: Gil Cunningham LOC: [facility] U#:[id number] AGE/SX: 56/M ROOM: RE02/01/[address]: Maura Bacon MD : 1965 BED: DIS: 02/01/2022 SPEC #: [id number] RECD: 02/01/22 16:34 STATUS: BISI RE #: [id number] ANGEL: 02/01/22 13:[address]: Maura Bacon DEPT: Surgical Specimen RECD BY: Odette Rushing ENTERED: 02/01/22 16:35 SP TYPE: STOMACH OTHR DR: Mirna Vicente Tissues: 1 - STOMACH BIOPSY 2 - STOMACH BIOPSY 3 - ESOPHAGUS BIOPSY Procedures: GROSS AND MICRO LEVEL 4 Comments: [id number]
[2022-02-01 13:53] VITALS: BP 111/82; PULSE 67; RESP 20; TEMP 36.3; O2SAT 94
[2022-02-01 14:18] VITALS: BP 119/92; PULSE 70; RESP 20; TEMP 36.2; O2SAT 98
--- NOTE | 2022-02-01 15:15 | W.ANESPOSTOP ---
Postoperative Evaluation Date, Time and Location Date Performed: 02/01/22 Time Performed: 14:00 Patient Location: Day Surgery Unit Vital Signs Most Recent Imported Vital Signs: Most Recent Vital Signs Temp Pulse Resp BP Pulse Ox 36.3 C L 67 20 111/82 94 02/01/22 13:53 02/01/22 13:53 02/01/22 13:53 02/01/22 13:53 02/01/22 13:53 Pain Score Most Recent Pain Score: Most Recent Pain Score Pain Level 0 02/01/22 13:53 Assessment Mental Status: Awake (Alert & Oriented to Patient Baseline) Airway and Respiratory Function: Patent airway with normal (patient baseline) respiratory exam Cardiovascular Function: Hemodynamically Stable Hydration Status: Adequately Hydrated Nausea & Vomiting: No Nausea or Vomiting Pain: Pt. Denies Any Pain Peripheral Nerve Block: Patient did not receive a nerve block
== END 2022-02-01 15:08 | disposition home or self-care (01) ==
PROVIDERS: PCP Nurse Practitioner Family; Visit Provider Surgery
PROC: 0DJ68ZZ Inspection of Stomach, Via Natural or Artificial Opening Endoscopic (ICD-10-PCS; CPT 43235; principal; 2022-02-01 12:00)
DX: K92.0 Hematemesis (principal); R13.10 Dysphagia, unspecified; K20.90 Esophagitis, unspecified without bleeding; K22.89 Other specified disease of esophagus; K31.89 Other diseases of stomach and duodenum
CPT/HCPCS: 43239; 88305

== ENCOUNTER 2022-02-10 21:23 | Emergency (ER) | payer MEDICAID, SELFPAY ==
[2022-02-10 21:38] VITALS: BP 130/84; PULSE 79; RESP 16; TEMP 36.4; O2SAT 98
--- NOTE | 2022-02-10 22:15 | DI.RAD_ITS ---
Exam(s) XR PORTABLE CHEST AP EXAM: XR PORTABLE CHEST AP CLINICAL HISTORY: sob TECHNIQUE: 2D digital imaging was performed of the chest. One image was obtained. An AP view was ob tained. COMPARISON: CR,XR XR PORTABLE CHEST AP from 11/02/2021 FINDINGS: MEDIASTINUM: Normal. HEART: Normal. PULMONARY VASCULATURE: Normal. LUNGS: Clear. PLEURAL SPACE: No pleural effusion or pneumothorax. BONE:Within normal limits for the patient's age. OTHER FINDINGS:Normal. IMPRESSION: No acute pulmonary findings. DATA REPOSITORY: RADIATION DOSE DELIVERED:
--- NOTE | 2022-02-10 22:19 | W.ED.GENAD ---
Discharge Plan Disposition Patient Disposition: STILL A PATIENT Condition: Stable Discharge Details Clinical Impression: Nausea & vomiting Primary Care Provider: Mirna Vicente ED Provider: Chad Lemus Home Meds and New Rx's Prescriptions: No Action Emgality Pen 120 mg/mL pen injector 240 mg subcut ONCE Qty: 2 0RF Rx Instructions: as a single dose; administer as two 120 mg injections at separate sites. prochlorperazine maleate [Compazine] 10 mg tablet 10 mg PO TID PRN (Reason: nausea and vomiting, headache) Qty: 30 1RF sertraline 100 mg tablet 100 mg PO DAILY metformin [Glucophage] 500 mg tablet See Rx Instructions .ROUTE .COMPLEX Rx Instructions: 3 tabs am and 2 tabs HS cyclobenzaprine 10 mg tablet 10 mg PO HS PRN loratadine 10 mg tablet 10 mg PO DAILY PRN levetiracetam [Keppra] 1,000 mg tablet 2,000 mg PO DAILY glipizide [Glucotrol XL] 10 MG tablet extended release 24hr 10 mg PO BID albuterol sulfate [ProAir HFA] 1 PUFF HFA aerosol inhaler 2 puff Inhalation Q4H PRN PRNQty: 1 0RF Label Comments: not using lately aspirin 81 MG tablet,chewable 81 mg PO DAILY hydrochlorothiazide 12.5 MG capsule 25 mg PO QAM Label Comments: unknown dose Victoza 2-Jesús 0.6 MG/0.1 ML pen injector 1.8 mg . DAILY AM Hold Instructions: Home Medication placed on hold at Doctor's office aspirin 81 mg Tablet,Chewable 81 mg PO DAILY Label Comments: Doesnt take regularly like should losartan 25 mg Tablet 25 mg PO DAILY insulin glargine [Lantus Solostar U-100 Insulin] 100 unit/mL (3 mL) Insulin Pen 22 unit SUBCUT HS pseudoephedrine-ibuprofen 30-200 mg Tablet 1 tab PO PRN PRN Excedrin Migraine 250-250-65 mg Tablet 1 tab PO ONCE omeprazole 40 mg capsule,delayed release(DR/EC) 40 mg PO BID Qty: 60 0RF Medical Decision Making This is a 56-year-old gentleman who has a past medical history of seizures, COPD, diabetes, hypertension, obesity, smoker, presenting to the ER reporting that he has not felt well in the last couple of days, nausea, vomiting with fatigue, body aches, shortness of breath. Clinically he appears well, nontoxic. Hemodynamically stable. Appears hydrated. No dry heaving. Plan is to obtain IV access, give IV fluid, Zofran, obtain routine screening laboratory values, chest x-ray, COVID. Patient receiving IV fluid and Zofran Laboratory values reveal minimal nonspecific leukocytosis. COVID-negative, urinalysis unremarkable Awaiting chest x-ray, p.o. challenge, reassessment. This documentation was generated using [employer] system, please disregard any oddities of phrase or misspellings. Medical Records Medical records reviewed: Yes I reviewed the patient's medical records. Lab Data Lab results reviewed: Yes I reviewed the patient's lab results. Labs: Laboratory Tests Range/Units 02/10/22 02/10/22 02/10/22 22:40 22:40 22:50 WBC (4.4-10.8) 10^3/uL 11.88 H RBC (4.36-5.78) 10^6/uL 5.95 H Hgb (13.5-17.5) g/dL 15.8 Hct (40.0-50.0) % 48.3 MCV (80-95) fL 81 MCH (27.0-33.0) pg 26.6 L MCHC (32.0-36.0) % 32.7 RDW (11.8-14.1) % 13.2 Plt Count (130-400) 10^3/uL 254 MPV (8.0-11.0) fL 9.1 Immature Gran % 0.8 Neutrophils % 61.2 Lymphocytes % 28.4 Monocytes % 6.5 Eosinophils % 2.6 Basophils % 0.5 Nucleated RBC % (0.0-0.3) % 0.0 Absolute Neutrophils (1.2-6.7) 10^3/uL 7.27 H Absolute Lymphocytes (1.2-3.4) 10^3/uL 3.37 Absolute Monocytes (0.1-0.8) 10^3/uL 0.77 Absolute Eosinophils (0.0-0.7) 10^3/uL 0.31 Absolute Basophils (0.0-0.2) 10^3/uL 0.06 Sodium (136-145) mmol/L 136 Potassium (3.5-5.1) mmol/L 3.8 Chloride (98-107) mmol/L 100 Carbon Dioxide (21.0-32.0) mmol/L 29.0 Anion Gap (3-11) mmol/L 7.0 BUN (7-18) mg/dL 16 Creatinine (0.70-1.30) mg/dL 0.9 Est GFR (CKD-EPI 2020) (mL/min/1.73m2) 100.86 Glucose (74-106) mg/dL 210 H Calcium (8.5-10.1) mg/dL 9.2 Total Bilirubin (0.2-1.0) mg/dL 0.3 AST (15-37) U/L 19 ALT (16-63) U/L 37 Alkaline Phosphatase (46-116) U/L 90 Total Protein (6.4-8.2) g/dL 8.1 Albumin (3.4-5.0) g/dL 3.6 Lipase (73-393) U/L 226 COVID-19 Source Nasal/Nares HPI General Mode of arrival: ambulatory. Date/Time Provider Initiated Documentation: 02/10/22 21:24. Limitations to Documentation: no limitations. Information obtained by: patient. HPI Narrative: This is a 56-year-old gentleman with a past medical history of chronic headaches, depression, seizures, dysphagia, diabetes, presenting to the ER for evaluation of simply not feeling well, nausea, vomiting, body aches, fatigue, mild shortness of breath. He denies headache, neck pain, chest pain, cough, abdominal pain, diarrhea, constipation, skin rash. He is concerned that he may be dehydrated. Denies bad food exposure or recent sick contacts Related Data Home Medications Medication Instructions Recorded Confirmed albuterol sulfate 90 mcg/actuation 2 puff inhalation Q4H PRN PRN #1 07/31/12 02/10/22 aerosol inhaler (ProAir HFA) inh glipizide 10 mg tablet, extended 10 mg PO BID 07/31/12 02/10/22 release 24 hr (Glucotrol XL) aspirin 81 mg chewable tablet 81 mg PO DAILY 07/02/15 02/10/22 hydrochlorothiazide 12.5 mg capsule 25 mg PO QAM 06/07/17 02/10/22 liraglutide 0.6 mg/0.1 mL (18 mg/3 1.8 mg . DAILY AM 06/07/17 02/10/22 mL) subcutaneous pen injector (Victoza 2-Jesús) insulin glargine 100 unit/mL (3 22 unit subcut HS 05/12/20 02/10/22 mL) subcutaneous pen (Lantus Solostar U-100 Insulin) losartan 25 mg tablet 25 mg PO DAILY 05/12/20 02/10/22 cyclobenzaprine 10 mg tablet 10 mg PO HS PRN 07/03/20 02/10/22 loratadine 10 mg tablet 10 mg PO DAILY PRN 07/03/20 02/10/22 metformin 500 mg tablet See Rx Instructions .Route .COMPLEX 07/03/20 02/10/22 (Glucophage) sertraline 100 mg tablet 100 mg PO DAILY 11/11/20 02/10/22 galcanezumab-gnlm 120 mg/mL 240 mg (2 mL) subcut ONCE #2 mL 01/13/21 02/10/22 subcutaneous pen injector (Emgality Pen) prochlorperazine maleate 10 mg 10 mg PO TID PRN nausea and 01/13/21 02/10/22 tablet (Compazine) vomiting, headache #30 tabs sxntrse-myxuvewvhcfwq-axwsebje 250 1 tab PO ONCE 11/02/21 02/10/22 mg-250 mg-65 mg tablet (Excedrin Migraine) pseudoephedrine-ibuprofen 30 1 tab PO PRN PRN 11/02/21 02/10/22 mg-200 mg tablet levetiracetam 1,000 mg tablet 2,000 mg PO DAILY 01/21/22 02/10/22 (Keppra) omeprazole 40 mg capsule,delayed 40 mg PO BID #60 caps 02/01/22 02/10/22 release aspirin 81 mg chewable tablet 81 mg PO DAILY 02/10/22 02/10/22 Previous Rx's Medication Instructions Recorded albuterol sulfate 90 mcg/actuation 2 puff inhalation Q4H PRN PRN #1 07/31/12 aerosol inhaler (ProAir HFA) inh galcanezumab-gnlm 120 mg/mL 240 mg (2 mL) subcut ONCE #2 mL 01/13/21 subcutaneous pen injector (Emgality Pen) prochlorperazine maleate 10 mg 10 mg PO TID PRN nausea and 01/13/21 tablet (Compazine) vomiting, headache #30 tabs omeprazole 40 mg capsule,delayed 40 mg PO BID #60 caps 02/01/22 release Allergies Allergy/AdvReac Type Severity Reaction Status Date / Time Penicillins Allergy Severe Anaphylaxis Unverified 02/10/22 21:41 codeine [Codeine] Allergy Mild Hives Unverified 02/10/22 21:41 lisinopril Allergy Anaphylaxsi Unverified 02/10/22 21:41 s General Stated Complaint: Nausea/Vomit/Diar ASHLEY: 3 Review of Systems Constitutional Constitutional: Denies fatigue, Denies fever(s), Reports headache(s) and Denies weakness ENT Ears, Nose, Mouth, and Throat: Reports headache(s) and Denies neck pain Cardiovascular Cardiovascular: Denies chest pain and Reports dyspnea Respiratory Respiratory: Denies cough and Reports dyspnea Gastrointestinal Gastrointestinal: Denies abdominal pain, Denies constipation, Denies diarrhea, Reports nausea and Reports vomiting Genitourinary Genitourinary: Denies dysuria Musculoskeletal Musculoskeletal: Denies back pain and Denies neck pain Integumentary/Breasts Skin/Breast: Denies rash Neurologic Neurologic: Reports headache(s) and Denies weakness Endocrine Endocrine: Denies fatigue PFSH All Active Problems (Updated 02/10/22 @ 23:13 by JOSE D Tipton) Spell of altered cognition (Acute) Irregular heart beat (Acute) Chronic headache (Acute) Medication overuse headache (Acute) Migraine headache without aura (Acute) Seizure-like activity (Acute) Laceration of head (Acute) Depression (Chronic) Insurance coverage problems (Acute) Problems related to other legal circumstances (Acute) Problems in relationship with spouse or partner (Acute) Hematemesis (Acute) Pharyngoesophageal dysphagia (Acute) Thyroid nodule (Acute) Nausea & vomiting (Acute) Medical History Abdominal pain, LLQ Adjustment disorder Amputation of lower limb Asthma Lanza angioma COPD (chronic obstructive pulmonary disease) Diabetes Edema Erectile dysfunction Frequent PVCs Grief reaction Headache Hypertension Kidney stones Marital problem Morbid obesity Other problems related to social environment Personal history of fall Phimosis Pituitary adenoma Seasonal allergies Sleep apnea Suicidal ideation Thyroid mass Tobacco abuse Transient neurological symptoms Seizure-like activity pt. states mild shaking lasting a minute 01/29/22 Type 2 diabetes mellitus Surgical History History of knee surgery Hx of foot surgery left r/t logging accident; hardware present Family History Other Diabetes Social History Smoking/Tobacco Use Status: Current every day Tobacco Type: smokeless tobacco Tobacco: How many years used: 43 Smokeless tobacco user: chewing tobacco and snuff Smoking risk assessment performed?: Yes Alcohol Intake: current Alcohol Intake frequency: holidays/special occasions only Drug use: Occasionally Substance use type: marijuana Details: 1-2 week Household members: children Number of Children: 4 Education Level: high school 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 Do you feel safe at home: Yes Do you feel safe in your relationship?: Yes Exam Const General: cooperative, healthy appearing, comfortable and no acute distress Orientation: alert and awake HENTN Head: normal to inspection, normocephalic and atraumatic Face and sinus: normal facial exam Mouth: moist mucous membranes Eyes General: appearance normal, both eyes and all related structures Conjunctivae: conjunctivae normal Neck Neck: normal visual inspection, full ROM, no meningeal signs, trachea midline and supple Resp Effort & Inspection: normal respiratory effort and able to speak in complete sentences Auscultation: clear to auscultation bilaterally Cardio Rate: regular rate Rhythm: regular rhythm GI Inspection: obesity Palpation: soft, not firm, no guarding, no pulsatile masses and nontender Auscultation: normal bowel sounds Back/Spine/Pelvis Back: No back tenderness Skin General skin exam: no rashes or lesions noted Neuro General: patient alert, patient awake, moves all extremities and no focal motor deficits Cognition: normal cognition Speech: speech normal Gait: normal gait Sensory Exam: no sensory deficits noted Psych Appearance: grossly normal Mental Status: mental status grossly normal Course Vital Signs Vital signs: Vital Signs Temperature 36.4 C L 02/10/22 21:38 Pulse 79 02/10/22 21:38 Respiratory Rate 16 02/10/22 21:38 Blood Pressure 130/84 02/10/22 21:38 Pulse Oximetry 98 02/10/22 21:38 Temperature 36.4 C L 02/10/22 21:38 Temperature Source Temporal Artery Scan 02/10/22 21:38 Pulse 79 02/10/22 21:38 Respiratory Rate 16 02/10/22 21:38 Respiratory Effort 02/10/22 21:38 Blood Pressure 130/84 02/10/22 21:38 Blood Pressure Position Sitting 02/10/22 21:38 Pulse Oximetry 98 02/10/22 21:38 Oxygen Delivery Method Room Air 02/10/22 21:38 Oxygen Flow Rate 0 02/10/22 21:38 Pain Level 7 02/10/22 21:38 Comment 02/10/22 21:38
[2022-02-10] MEDS: Normal Saline 1,000 ML 1000 ML IV (22:45)
[2022-02-10 22:46] LABS: Abs Immature Grans 0.09 10^3/uL (0.0-0.06); Absolute Basophil Count 0.06 10^3/uL (0.0-0.2); Absolute Eosinophil Count 0.31 10^3/uL (0.0-0.7); Absolute Lymphocyte Count 3.37 10^3/uL (1.2-3.4); Absolute Monocyte Count 0.77 10^3/uL (0.1-0.8); Basophils % 0.5; Eosinophils % 2.6; HCT 48.3 % (40.0-50.0); HGB 15.8 g/dL (13.5-17.5); Immature Grans % 0.8; Lymphocytes % 28.4; MCH 26.6 pg (27.0-33.0); MCHC 32.7 % (32.0-36.0); MCV 81 fL (80-95); MPV 9.1 fL (8.0-11.0); Monocytes % 6.5; Neutrophils % 61.2; Platelet Count 254 10^3/uL (130-400); RBC 5.95 10^6/uL (4.36-5.78); RDW 13.2 % (11.8-14.1); RDW-SD 38.5 fL; WBC 11.88 10^3/uL (4.4-10.8)
[2022-02-10] MEDS: Ondansetron 4 MG/2 ML VIAL IVP (22:46)
[2022-02-10 22:47] LABS: Absolute Neutrophil Count 7.27 10^3/uL (1.2-6.7)
[2022-02-10 22:54] LABS: Source Nasal/Nares
[2022-02-10 23:03] LABS: ALT 37 U/L (16-63); AST 19 U/L (15-37); Albumin 3.6 g/dL (3.4-5.0); Alkaline Phosphatase 90 U/L (46-116); BUN 16 mg/dL (7-18); Bilirubin, Total 0.3 mg/dL (0.2-1.0); CREATININE 0.9 mg/dL (0.70-1.30); Calcium 9.2 mg/dL (8.5-10.1); Chloride 100 mmol/L (98-107); Estimated GFR 100.86 (mL/min/1.73m2); Glucose 210 mg/dL (74-106); Lipase 226 U/L (73-393); Potassium 3.8 mmol/L (3.5-5.1); Sodium 136 mmol/L (136-145); Total Protein 8.1 g/dL (6.4-8.2)
[2022-02-10 23:15] LABS: Bilirubin Negative (Negative); Blood Negative (Negative); Clarity Clear (Clear); Glucose Negative (Negative); Ketones Negative (Negative); Leukocyte Esterase Negative (Negative); Nitrite Negative (Negative); Specific Gravity >= 1.030 (1.005-1.025); Urobilinogen 0.2 EU/dL (Up TO 0.2); pH 5.5 (5-8)
[2022-02-10 23:24] LABS: COVID-19 PCR Negative (Negative)
[2022-02-10 23:30] LABS: Bacteria Negative HPF (Negative); Casts 0-2 Hyaline LPF (Negative); Crystals Few Amorphous HPF (Negative); Epithelial Cells Few HPF (Negative); Mucus Negative (Negative); RBC 0-2 HPF (0-2); WBC 0-2 HPF (0-5)
[2022-02-10 23:31] LABS: C & S Indicated? No
[2022-02-10 23:44] VITALS: BP 106/85; PULSE 67; RESP 17; O2SAT 99
--- NOTE | 2022-02-11 00:09 | DI.VRAD_ITS ---
PROCEDURE INFORMATION: Exam: XR Chest Exam date and time: 02/10/2022 10:37 PM Age: 56 years old Clinical indication: Shortness of breath; Additional info: SOB TECHNIQUE: Imaging protocol: Radiologic exam of the chest. Views: 1 view. COMPARISON: XR PORTABLE CHEST AP 11/02/2021 6:54 PM FINDINGS: Lungs: Grossly stable chronic interstitial prominence No consolidation. Pleural spaces: No pleural effusion. No pneumothorax. Heart/Mediastinum: No cardiomegaly. Bones/joints: Grossly stable. IMPRESSION: No acute findings. Dictated and Authenticated by: Yash Burrows MD. Ordering:ROYA Bonilla MD
[2022-02-11 00:20] VITALS: BP 115/84; PULSE 71; TEMP 36.4; O2SAT 98
--- NOTE | 2022-02-11 00:21 | ED.PROG_ITS ---
Date of service: 02/11/22 Time of Service: 00:22 Medical Decision Making Case is signed out to me my colleague Chad Lemus. Please refer to his HPI, physical exam, assessment and plan. At time of signout we are pending chest x- ray. Chest x-ray is negative for acute process. Labs are stable. Patient is tolerating p.o. No abdominal tenderness. No signs of significant clinical abnormality based on exam at this time. No indication for further imaging. COVID testing negative. Patient stable for discharge. After the liter of fluid the patient is feeling much better and would like to go home. 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 I have extensively reviewed the treatment plan and discharge instructions with the patient. I have addressed all patient concerns at this time. The patient was made aware of what symptoms to monitor for that would warrant a return to the emergency department. Discussed the plan with the patient, they demonstrate verbal understanding and agreement with our assessment and plan at this time. The documentation in this chart was dictated using [employer] dictation software. Please excuse any dictation errors. Sign Out Sign Out Data: Sign Out Comment: Nausea and vomiting x2 days. Fatigue, body aches. Leukocytosis of 11.8. Work-up otherwise unremarkable. Awaiting chest x-ray, p.o. challenge, and disposition. Last updated by Chad Lemus PA at 02/10/22 23:36 Discharge Plan Disposition Patient Disposition: HOME Condition: Stable Discharge Details Clinical Impression: Nausea & vomiting Primary Care Provider: Mirna Vicente ED Provider: Julio C Chen Home Meds and New Rx's Prescriptions: No Action Emgality Pen 120 mg/mL pen injector 240 mg subcut ONCE Qty: 2 0RF Rx Instructions: as a single dose; administer as two 120 mg injections at separate sites. prochlorperazine maleate [Compazine] 10 mg tablet 10 mg PO TID PRN (Reason: nausea and vomiting, headache) Qty: 30 1RF sertraline 100 mg tablet 100 mg PO DAILY metformin [Glucophage] 500 mg tablet See Rx Instructions .ROUTE .COMPLEX Rx Instructions: 3 tabs am and 2 tabs HS cyclobenzaprine 10 mg tablet 10 mg PO HS PRN loratadine 10 mg tablet 10 mg PO DAILY PRN levetiracetam [Keppra] 1,000 mg tablet 2,000 mg PO DAILY glipizide [Glucotrol XL] 10 MG tablet extended release 24hr 10 mg PO BID albuterol sulfate [ProAir HFA] 1 PUFF HFA aerosol inhaler 2 puff Inhalation Q4H PRN PRNQty: 1 0RF Label Comments: not using lately aspirin 81 MG tablet,chewable 81 mg PO DAILY hydrochlorothiazide 12.5 MG capsule 25 mg PO QAM Label Comments: unknown dose Victoza 2-Jesús 0.6 MG/0.1 ML pen injector 1.8 mg . DAILY AM Hold Instructions: Home Medication placed on hold at Doctor's office aspirin 81 mg Tablet,Chewable 81 mg PO DAILY Label Comments: Doesnt take regularly like should losartan 25 mg Tablet 25 mg PO DAILY insulin glargine [Lantus Solostar U-100 Insulin] 100 unit/mL (3 mL) Insulin Pen 22 unit SUBCUT HS pseudoephedrine-ibuprofen 30-200 mg Tablet 1 tab PO PRN PRN Excedrin Migraine 250-250-65 mg Tablet 1 tab PO ONCE omeprazole 40 mg capsule,delayed release(DR/EC) 40 mg PO BID Qty: 60 0RF Discharge Instructions Instructions: Acute Nausea and Vomiting (ED) Additional Instructions: At this time your laboratory work-up is normal and reassuring. Please take the Zofran as needed for any persistent nausea. Please drink plenty of fluids. Avoid greasy foods, fatty foods, or spicy foods. Stick with a bland diet of rice, bananas, applesauce and crackers over the next few days. If you notice any worsening of your symptoms, or any new symptoms such as vomiting, diarrhea, fever, chills, shortness of breath, chest pain, numbness, weakness, or fainting , please return immediately to the emergency department for reevaluation. Please follow up with your primary care provider as soon as possible for reassessment and reevaluation. As always, it was a pleasure participating in your medical care today. Referrals: Mirna Vicente [Primary Care Provider] -
[2022-02-11 00:28] VITALS: PULSE 88; RESP 19; O2SAT 97
[2022-02-11] MEDS: Ondansetron O.D.T. 4 MG TABEF, 3 TABS/BTL PO (00:28)
== END 2022-02-11 00:28 | disposition home or self-care (01) ==
PROVIDERS: Physician Assistant; Emergency Provider Student in an Organized Health Care Education/Training Program; PCP Nurse Practitioner Family
DX: R11.2 Nausea with vomiting, unspecified (principal); R53.83 Other fatigue; R06.02 Shortness of breath; I10 Essential (primary) hypertension; E11.9 Type 2 diabetes mellitus without complications; J44.9 Chronic obstructive pulmonary disease, unspecified; D72.829 Elevated white blood cell count, unspecified; F17.220 Nicotine dependence, chewing tobacco, uncomplicated; Z79.4 Long term (current) use of insulin; Z79.84 Long term (current) use of oral hypoglycemic drugs; Z79.82 Long term (current) use of aspirin; Z20.822 Contact with and (suspected) exposure to COVID-19
CPT/HCPCS: 80053; 83690; 87635; 96361; 96374; 99284; 71045; 81003; 81015; 85025; J2405

== ENCOUNTER → 2022-02-25 02:56 | Outpatient (CLI) | payer MEDICAID, SELFPAY ==
--- NOTE | 2022-02-25 08:30 | DI.US_ITS ---
Exam(s) US THYROID EXAM: US THYROID CLINICAL HISTORY: THYROID MASS, E07.9. TECHNIQUE: Ultrasound thyroid performed using standard protocol. COMPARISON: No exams were available for comparison FINDINGS: ISTHMUS: 4 mm RIGHT LOBE: Size: 5.9 x 2.2 x 4 cm Echogenicity: Normal. Vascularity: Normal. Nodules: There is a 0.8 x 0.8 x 1.6 cm mixed cystic and solid slightly hypoechoic nodule present. Th e margins appear smooth and no echogenic foci are seen internally. The findings are consistent with a TI rads level 3 nodule. Due to the size, follow-up is recommended. LEFT LOBE: Size: 5.8 x 1.9 x 1.5 cm Echogenicity: Normal. Vascularity: Normal. Nodules: There is a 0.8 x 0.7 x 1 cm spongiform nodule. This is a TI rads level 1 nodule. There is a 1.3 x 1 x 1 cm mixed cystic and solid hypoechoic nodule in the upper pole. It is smooth margins wi th no echogenic foci. It is consistent with a TI rads level 3 nodule. Due to its size no follow-up is recommended. OTHER FINDINGS: None. IMPRESSION: Multinodular thyroid gland as described above. Please see the above for complete details DATA REPOSITORY:
== END ==
PROVIDERS: PCP Nurse Practitioner Family; Visit Provider Nurse Practitioner Family
DX: E04.2 Nontoxic multinodular goiter (principal)
CPT/HCPCS: 76536

== ENCOUNTER 2022-05-26 21:11 | Emergency (ER) | payer MEDICAID, SELFPAY ==
[2022-05-26] VITALS (17 sets, daily range): BP systolic 111–139; BP diastolic 75–95; PULSE 63–74; RESP 13–23; TEMP 36.3; O2SAT 95–99
--- NOTE | 2022-05-26 21:15 | DI.CT_ITS ---
Exam(s) CT BRAIN NECK CTA EXAM: CT BRAIN NECK CTA CLINICAL HISTORY: Syncope, Visual disturbances, hx of seizures. TECHNIQUE: Imaging Protocol: Axial CT angiography was performed with multi-slice acquisition and mu lti-planar and/or 3D reconstructions. CONTRAST MATERIAL: Intravenous: Omnipaque 350 Contrast volume:84 mL COMPARISON: CT CT CHEST PE CTA from 11/02/2021 FINDINGS: CTA Neck W: Incidentally noted is a posterior located taller than wider in the transverse plane nodule in the rig ht thyroid lobe. Recommend further investigation this incidental finding. Aortic arch anatomy: The aortic arch anatomy is conventional and there is no significant stenosis at the origin of the great vessels off of the aortic arch. No intimal flap evident. Anterior circulation: Both common carotid arteries ascend with normal luminal diameters. At the level the carotid bulbs and proximal internal carotid arteries there is minimal plaque without hemodynamically significant stenosis evident. Posterior circulation: Both vertebral arteries originate in conventional fashion off of the subclavian arteries and there is no obvious stenosis at the origin of the vertebral arteries. Both vertebral arteries exhibit normal luminal diameters within the foramen transversarium. No occlusion. No dissection the vertebral arteries. Both vertebral arteries contribute to the formation of the basilar artery at the skull base. CTA Brain W: Anterior circulation: Both internal carotid arteries are patent in the skull base-carotid canals as well as within the cave rnous sinuses. The supraclinoid aspects of the ICAs are patent. Both A1 segments are thin but patent as are the ant erior cerebral arteries and there is no evidence of aneurysm at the level of the anterior communicati ng artery. Both middle cerebral arteries are patent with no evidence of significant stenosis nor intraluminal th rombus. There also no aneurysms of these vessels. Posterior circulation: The basilar artery ascends in the midline. Distally it gives off patent bilateral superior cerebella r arteries. Above this level the basilar artery terminates as patent bilateral posterior cerebral arteries. There is a thin posterior communicating artery evident on the right side of the qjsjxs-jv-Uyhyss. There is no evidence of aneurysm at the tip of the basilar artery nor elsewhere in the nnaxao-fr-Roqr is. CT BRAIN: There is no evidence of intracranial hemorrhage, new mass effect, or shift of midline structures. Th ere are no extra-axial fluid collections. Ventricles are not enlarged or shifted. There are no ring enhancing lesions in the brain and no abnormal meningeal enhancement. Pituitary gland mass again noted extending into the upper pituitary fossa and impinging upon the opti c chiasm. IMPRESSION: 1. Patent carotid arteries in the neck. No hemodynamically significant stenosis. 2. Patent vertebral arteries. 3. Patent intracranial arteries. 4. No evidence of dissection. No aneurysms. 5. Redemonstration of pituitary mass which does not appear to have obviously increased in size from M RI scan of 06/16/2020. Appropriate follow-up of this finding is recommended. RADIATION DOSE DELIVERED: 2,098.64mGy.cm Total DLP DATA REPOSITORY: All CT scans at this facility are submitted to the National Radiology Data Registry (NRDR) Dose Index Registry (DIR) with the [employer] (ACR). RADIATION OPTIMIZATION: All CT scans at this facility use at least one of these dose optimization te chniques: automated exposure control; mA and/or kV adjustment per patient size (includes targeted exa ms where dose is matched to clinical indication); or iterative reconstruction.
--- NOTE | 2022-05-26 21:15 | RT.EKG_ITS ---
APPROVED REPORT Exam: Resting ECG Reason for Exam: passed out Patient Location: E HR:66 bpm ECG Measurements Heart Rate 66 AXIS DC 168 P 51 QRSd 87 QRS 15 QT 377 T 51 QTc 395 Conclusion Sinus rhythm...normal P axis, V-rate 60- 99 Physician: no stemi, stable
--- NOTE | 2022-05-26 21:29 | ED.GENADUL_ITS ---
Discharge Plan Disposition Patient Disposition: Home Condition: Stable Discharge Details Clinical Impression: Seizure-like activity, Closed head injury with loss of consciousness of unknown duration Primary Care Provider: Mirna Vicente ED Provider: Jazmyn Beard Home Meds and New Rx's Prescriptions: Continued sertraline 100 mg tablet 100 mg PO DAILY omeprazole 40 mg capsule,delayed release(DR/EC) 40 mg PO DAILY Qty: 30 5RF levetiracetam [Keppra] 1,000 mg tablet 2,000 mg PO DAILY glipizide [Glucotrol XL] 10 MG tablet extended release 24hr 10 mg PO BID hydrochlorothiazide 12.5 MG capsule 25 mg PO QAM Label Comments: unknown dose Victoza 2-Jesús 0.6 MG/0.1 ML pen injector 1.8 mg . DAILY AM Hold Instructions: Home Medication placed on hold at Doctor's office losartan 25 mg Tablet 25 mg PO DAILY insulin glargine [Lantus Solostar U-100 Insulin] 100 unit/mL (3 mL) Insulin Pen 22 unit SUBCUT HS No Action Emgality Pen 120 mg/mL pen injector 240 mg subcut ONCE Qty: 2 0RF Rx Instructions: as a single dose; administer as two 120 mg injections at separate sites. prochlorperazine maleate [Compazine] 10 mg tablet 10 mg PO TID PRN (Reason: nausea and vomiting, headache) Qty: 30 1RF metformin [Glucophage] 500 mg tablet See Rx Instructions .ROUTE .COMPLEX Rx Instructions: 3 tabs am and 2 tabs HS cyclobenzaprine 10 mg tablet 10 mg PO HS PRN loratadine 10 mg tablet 10 mg PO DAILY PRN albuterol sulfate [ProAir HFA] 1 PUFF HFA aerosol inhaler 2 puff Inhalation Q4H PRN PRNQty: 1 0RF Label Comments: not using lately aspirin 81 mg Tablet,Chewable 81 mg PO DAILY Label Comments: Doesnt take regularly like should pseudoephedrine-ibuprofen 30-200 mg Tablet 1 tab PO PRN PRN Excedrin Migraine 250-250-65 mg Tablet 1 tab PO ONCE Discharge Instructions Instructions: Head Injury (ED), Recurrent Seizures in Adults (ED) Additional Instructions: CT of your head is within normal limits. Labs are largely within normal limits. No evidence of heart attack or infection. You been placed on a care management list to assist with getting a sooner appointment with Dr. Whitehead with neurology. I do recommend that you get in within the next 3 weeks if possible. Please discuss the increasing frequency of seizures and memory loss with her. Follow up with primary care provider in 3-5 days. Return to ED sooner if any wor sening seizures, loss of consciousness, weakness on one side of your body, or concerns. Increase oral fluids. Headache not relieved by Tylenol or ibuprofen. Please keep your upcoming appointment with general surgery as previously scheduled. Please stay with someone who can observe you over the next 24 to [address] if possible. Referrals: Mirna Vicente [Primary Care Provider] - 3 days Pippa Whitehead MD [ [facility] STAFF PHYSICIAN] - 2 weeks (2-3 weeks if possible) Medical Decision Making 56-year-old male presents to the ER chief complaint of loss of consciousness. Patient reports that last he remembers he was walking to the bathroom and he woke up on the bathroom floor at approximately 5 PM. His friend who accompanies him to the ER said that he texted her around 6:10 and seemed confused asking for his ex- who now lives in [place]. He reports that he took a shower curtain down and hit his head on an edge of some drywall. He does have a superficial vertical laceration to the middle of his forehead. Bleeding is controlled. He denies any loss of bowel or bladder control, denies any chest pain or symptoms prior to this. On exam he does have some nystagmus and blurry vision. No focal neurodeficits noted. He does appear slightly postictal and having a hard time remembering. His friend does say that his seizures have gotten worse and more frequent he did have another episode on Tuesday he reports. Work-up ordered including CBC, CMP, TSH, urinalysis, urine drug screen, cardiac troponins, EKG and Keppra level. BGL obtained by staff which was 92 upon arrival. EKG was reviewed by Dr. Jerel Chen ER attending, please see his official report. Old EKG available for review no significant change no STEMI. CT without contrast and CTA brain and neck ordered. Differential diagnosis includes but not limited to CVA, seizure, CAD, atypical migraine, CBC shows slight leukocytosis with white blood cell count of 12.06, this is largely at baseline, hemoglobin 16.4 hematocrit 51.1 which is within normal limits. CMP shows anion gap 11.4 BUN 22 creatinine 1.0, sodium potassium within normal limits magnesium within normal limits, TSH is pending and Keppra level is pending as this is a send out. Discussed labs with patient verbalized understanding. Awaiting CT result, Tylenol ordered for patient's headache. TSH within normal limits. CTA brain and neck results within normal limits see report from [facility] below. Patient has remained hemodynamically stable, no additional episodes of syncope or seizure-like activity. Patient is still complaining of some blurry vision however he reports that he supposed to be wearing glasses but he is noncompliant. Initial troponin within normal limits EKG also within normal limits. I did employee counselor the second troponin due to patient's having no complaints of chest pain and normal EKG and initial troponin. Patient is up-to-date on his tetanus vaccination. We will place him on the care management list to assist in getting a sooner appointment with neurology he reports he does have an appointment in August. He is taking 2000 mg of Keppra daily which she reports that he has been taking as prescribed. Urinalysis shows no leukocytes no nitrites no evidence of UTI. 2319: Spoke with [facility] radiologist Dr. Vogel regarding the CT result that there is some vessels in the retropharyngeal space that is an anatomical variant. He was able to view the pituitary gland measures at an approximately 1.3 cm or 13 mm. No change from previous exams. Discussed findings with patient verbalized understanding. Discussed strict return instructions. Patient has remained alert and oriented and hemodynamically stable throughout the remainder of his stay. This text was generated using [employer] system, please disregard any oddities of phrase or misspellings. Medical Records Medical records reviewed: Yes I reviewed the patient's medical records. Medical records narrative: Patient was seen by local neurologist in March 2021 has been seen by ear nose and throat March 2022 for thyroid nodule and was recommended to have ultrasound follow-up in 1 year. Imaging Data Radiologic Study: Imaging: CT Scan Radiologist's impression: Exam: CTA Head Without And With Contrast, Arteriography IMPRESSION: 1. No large intracranial vessel occlusion or significant stenosis. 2. Unremarkable CT head. Exam: CTA Neck Without And With Contrast IMPRESSION: 1. Normal right and left extracranial internal carotid arteries by NASCET criteria. 2. The left extracranial internal carotid artery takes a retropharyngeal course (anatomic variant) and may mimic a pulsatile retropharyngeal mass. There is no significant stenosis or occlusion. 3. Normal bilateral vertebral arteries. Lab Data Lab results reviewed: Yes I reviewed the patient's lab results. Labs: Laboratory Tests Range/Units 05/26/22 05/26/22 05/26/22 21:30 21:30 22:50 WBC (4.4-10.8) 10^3/uL 12.06 H RBC (4.36-5.78) 10^6/uL 6.25 H Hgb (13.5-17.5) g/dL 16.4 Hct (40.0-50.0) % 51.1 H MCV (80-95) fL 82 MCH (27.0-33.0) pg 26.2 L MCHC (32.0-36.0) % 32.1 RDW (11.8-14.1) % 13.4 Plt Count (130-400) 10^3/uL 305 MPV (8.0-11.0) fL 9.2 Immature Gran % 0.7 Neutrophils % 59.2 Lymphocytes % 30.7 Monocytes % 6.7 Eosinophils % 2.0 Basophils % 0.7 Nucleated RBC % (0.0-0.3) % 0.0 Absolute Neutrophils (1.2-6.7) 10^3/uL 7.14 H Absolute Lymphocytes (1.2-3.4) 10^3/uL 3.70 H Absolute Monocytes (0.1-0.8) 10^3/uL 0.81 H Absolute Eosinophils (0.0-0.7) 10^3/uL 0.24 Absolute Basophils (0.0-0.2) 10^3/uL 0.08 Sodium (136-145) mmol/L 137 Potassium (3.5-5.1) mmol/L 4.1 Chloride (98-107) mmol/L 98 Carbon Dioxide (21.0-32.0) mmol/L 27.6 Anion Gap (3-11) mmol/L 11.4 H BUN (7-18) mg/dL 22 H Creatinine (0.70-1.30) mg/dL 1.0 Est GFR (CKD-EPI 2020) (mL/min/1.73m2) 88.88 Glucose (74-106) mg/dL 98 Calcium (8.5-10.1) mg/dL 9.9 Magnesium (1.8-2.4) mg/dL 2.1 Total Bilirubin (0.2-1.0) mg/dL 0.4 AST (15-37) U/L 26 ALT (16-63) U/L 33 Alkaline Phosphatase (46-116) U/L 102 Troponin I (<or=60) ng/L < 50 Total Protein (6.4-8.2) g/dL 9.1 H Albumin (3.4-5.0) g/dL 4.0 TSH (0.36-3.74) uIU/mL 2.46 Urine Color (Yellow) Yellow Urine Clarity (Clear) Clear Urine pH (5-8) 6.0 Ur Specific [place] (1.005-1.025) 1.010 Urine Protein (Negative) mg/dL Negative Urine Ketones (Negative) mg/dL Negative Urine Blood (Negative) Negative Urine Nitrite (Negative) Negative Urine Bilirubin (Negative) Negative Urine Urobilinogen (Up TO 0.2) EU/dL 0.2 Ur Leukocyte Esterase (Negative) Negative Urine Glucose (Negative) mg/dL Negative HPI General Mode of arrival: ambulatory . Date/Time Provider Initiated Documentation: 05/26/22 21:13 . Limitations to Documentation: no limitations . Information obtained by: patient, family (Friend), RN notes reviewed and old records reviewed . HPI Narrative: 56-year-old male presents to the ER chief complaint of loss of consciousness. Patient reports that last he remembers he was walking to the bathroom and he woke up on the bathroom floor at approximately 5 PM. His friend who accompanies him to the ER said that he texted her around 6:10 and seemed confused asking for his ex- who now lives in [place]. He reports that he took a shower curtain down and hit his head on an edge of some drywall. He does have a superficial vertical laceration to the middle of his forehead. Bleeding is controlled. He denies any loss of bowel or bladder control, denies any chest pain or symptoms prior to this. On exam he does have some nystagmus and blurry vision. No focal neurodeficits noted. He does appear slightly postictal and having a hard time remembering. His friend does say that his seizures have gotten worse and more frequent he did have another episode on Tuesday he reports. He does have a history of seizures pituitary tumor, asthma, COPD, diabetes hypertension, morbid obesity, pituitary adenoma. He does endorse marijuana use denies any illicit drugs or alcohol. Denies any other associated symptoms. He is complaining of right knee pain. Related Data Home Medications Medication Instructions Recorded Confirmed albuterol sulfate 90 mcg/actuation 2 puff inhalation Q4H PRN PRN #1 07/31/12 05/26/22 aerosol inhaler (ProAir HFA) inh glipizide 10 mg tablet, extended 10 mg PO BID 07/31/12 05/26/22 release 24 hr (Glucotrol XL) hydrochlorothiazide 12.5 mg capsule 25 mg PO QAM 06/07/17 05/26/22 liraglutide 0.6 mg/0.1 mL (18 mg/3 1.8 mg . DAILY AM 06/07/17 05/26/22 mL) subcutaneous pen injector (Victoza 2-Jesús) insulin glargine 100 unit/mL (3 22 unit subcut HS 05/12/20 05/26/22 mL) subcutaneous pen (Lantus Solostar U-100 Insulin) losartan 25 mg tablet 25 mg PO DAILY 05/12/20 05/26/22 cyclobenzaprine 10 mg tablet 10 mg PO HS PRN 07/03/20 05/26/22 loratadine 10 mg tablet 10 mg PO DAILY PRN 07/03/20 05/26/22 metformin 500 mg tablet See Rx Instructions .Route .COMPLEX 07/03/20 05/26/22 (Glucophage) sertraline 100 mg tablet 100 mg PO DAILY 11/11/20 05/26/22 galcanezumab-gnlm 120 mg/mL 240 mg (2 mL) subcut ONCE #2 mL 01/13/21 05/26/22 subcutaneous pen injector (Emgality Pen) prochlorperazine maleate 10 mg 10 mg PO TID PRN nausea and 01/13/21 05/26/22 tablet (Compazine) vomiting, headache #30 tabs ykpvelm-gksxqtmrsbxbm-qodsyphy 250 1 tab PO ONCE 11/02/21 05/26/22 mg-250 mg-65 mg tablet (Excedrin Migraine) pseudoephedrine-ibuprofen 30 1 tab PO PRN PRN 11/02/21 05/26/22 mg-200 mg tablet levetiracetam 1,000 mg tablet 2,000 mg PO DAILY 01/21/22 05/26/22 (Keppra) aspirin 81 mg chewable tablet 81 mg PO DAILY 02/10/22 05/26/22 omeprazole 40 mg capsule,delayed 40 mg PO DAILY #30 caps 02/16/22 05/26/22 release Previous Rx's Medication Instructions Recorded albuterol sulfate 90 mcg/actuation 2 puff inhalation Q4H PRN PRN #1 07/31/12 aerosol inhaler (ProAir HFA) inh galcanezumab-gnlm 120 mg/mL 240 mg (2 mL) subcut ONCE #2 mL 01/13/21 subcutaneous pen injector (Emgality Pen) prochlorperazine maleate 10 mg 10 mg PO TID PRN nausea and 01/13/21 tablet (Compazine) vomiting, headache #30 tabs omeprazole 40 mg capsule,delayed 40 mg PO DAILY #30 caps 02/16/22 release Allergies Allergy/AdvReac Type Severity Reaction Status Date / Time Penicillins Allergy Severe Anaphylaxis Unverified 05/26/22 23:08 codeine [Codeine] Allergy Mild Hives Unverified 05/26/22 23:08 lisinopril Allergy Anaphylaxsi Unverified 05/26/22 23:08 s General Stated Complaint: Dizzy/Sync ASHLEY: 2 Review of Systems All systems reviewed & are unremarkable except as noted in HPI and below Constitutional Constitutional: Reports as per HPI, Reports body ache(s), Reports frequent falls and Reports headache(s) Eyes Eyes: Reports blurry vision ENT Ears, Nose, Mouth, and Throat: Reports as per HPI and Reports headache(s) Cardiovascular Cardiovascular: Denies chest pain, Denies leg edema, Denies palpitations, Denies dyspnea and Reports orthopnea (hx of sleep apnea) Respiratory Respiratory: Denies dyspnea Gastrointestinal Gastrointestinal: Denies abdominal pain, Denies diarrhea, Denies nausea, Denies vomiting and Reports hematemesis (Reported to the nurse, hx of barretts esophagus) Integumentary/Breasts Skin/Breast: Reports wounds (laceration, superficial to anterior forehead) Neurologic Neurologic: Reports as per HPI, Reports confusion, Reports frequent falls, Reports headache(s), Denies localized weakness, Reports memory loss, Reports other visual disturbances, Reports convulsions and Denies tremor(s) Psychiatric Psychiatric: Reports confusion and Reports memory loss Endocrine Endocrine: Denies palpitations PFSH All Active Problems (Updated 05/26/22 @ 23:16 by Jazmyn Beard NP) Closed head injury with loss of consciousness of unknown duration (Acute) Esophagitis (Acute) Gastritis (Acute) Erosive gastritis (Acute) Fine's esophagus determined by biopsy (Acute) Spell of altered cognition (Acute) Irregular heart beat (Acute) Chronic headache (Acute) Medication overuse headache (Acute) Migraine headache without aura (Acute) Seizure-like activity (Acute) Laceration of head (Acute) Depression (Chronic) Insurance coverage problems (Acute) Problems related to other legal circumstances (Acute) Problems in relationship with spouse or partner (Acute) Hematemesis (Acute) Pharyngoesophageal dysphagia (Acute) Thyroid nodule (Acute) Medical History Abdominal pain, LLQ Adjustment disorder Amputation of lower limb Asthma Lanza angioma COPD (chronic obstructive pulmonary disease) Diabetes Edema Erectile dysfunction Frequent PVCs Grief reaction Headache Hemoptysis Hypertension Kidney stones Marital problem Morbid obesity Multinodular thyroid Other problems related to social environment Personal history of fall Phimosis Pituitary adenoma Seasonal allergies Sleep apnea Suicidal ideation Thyroid mass Tobacco abuse Transient neurological symptoms Seizure-like activity pt. 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; hardware present Family History Other Diabetes Social History Smoking/Tobacco Use Status: Current every day Tobacco Type: smokeless tobacco Tobacco: How many years used: 43 Smokeless tobacco user: chewing tobacco and snuff Smoking risk assessment performed?: Yes Alcohol Intake: current Alcohol Intake frequency: holidays/special occasions only Drug use: Occasionally Substance use type: marijuana Details: 1-2 week Household members: children Number of Children: 4 Education Level: high school 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 Appears stated age. Obese body habitus. Head: Normocephalic, small superficial approximately 1 cm vertical laceration noted to his mid forehead. Bleeding is controlled. Eyes: Pupils PERRL, Red reflex noted, Eyelids symmetrical without lesions, discharge, or swelling. ENT: Bilateral TM's WNL, External ear normal to inspection, no mastoid TTP, swelling, or erythema, Nasal turbinates WNL, no nasal discharge. Poor d entition, Posterior pharynx WNL, no exudate. No hoyt sign no hemotympanum no oral trauma no tongue lacerations. Chest: RRR, Normal S1, S2, distal pulses intact. Resp: Lungs clear to auscultation bilaterally, no wheezes, rales, or rhonchi. Abdomen: Soft, non-distended, Normoactive bowel sounds all 4 quads. Musculoskeletal: Normal gait, 5/5 strength to all four extremities. Skin: No suspicious rashes or lesions. Capillary refill less than 2 sec. Neurologic: Cranial nerves II-XII intact. Alert and oriented x 3. Somewhat slow to respond. Horizontal nystagmus noted, pupils dilate and constrict with EOM examination. Motor: No deficits noted. Sensory: Intact bilaterally all 4 extremities. No pronator drift noted. No foot drop, no tremors, intact dorsiflexion and pedal flexion and extension. Hematologic/Lymphatic: No ecchymosis, no lymphadenopathy. Course Vital Signs Vital signs: Vital Signs Temperature 36.3 C L 05/26/22 21:16 Pulse 68 05/26/22 21:16 Respiratory Rate 19 05/26/22 21:16 Blood Pressure 139/95 H 05/26/22 21:16 Pulse Oximetry 99 05/26/22 21:16 Temperature 36.3 C L 05/26/22 21:16 Temperature Source Temporal Artery Scan 05/26/22 21:16 Pulse 68 05/26/22 21:16 Respiratory Rate 19 05/26/22 21:16 Respiratory Effort 05/26/22 21:16 Blood Pressure 139/95 H 05/26/22 21:16 Pulse Oximetry 99 05/26/22 21:16 Oxygen Delivery Method Room Air 05/26/22 21:16 Oxygen Flow Rate 0 05/26/22 21:16 Pain Level 9 05/26/22 21:16
[2022-05-26 21:39] LABS: Abs Immature Grans 0.08 10^3/uL (0.0-0.06); Absolute Basophil Count 0.08 10^3/uL (0.0-0.2); Absolute Eosinophil Count 0.24 10^3/uL (0.0-0.7); Absolute Monocyte Count 0.81 10^3/uL (0.1-0.8); Basophils % 0.7; HCT 51.1 % (40.0-50.0); HGB 16.4 g/dL (13.5-17.5); Immature Grans % 0.7; Lymphocytes % 30.7; MCH 26.2 pg (27.0-33.0); MCHC 32.1 % (32.0-36.0); MCV 82 fL (80-95); MPV 9.2 fL (8.0-11.0); Monocytes % 6.7; Neutrophils % 59.2; Platelet Count 305 10^3/uL (130-400); RBC 6.25 10^6/uL (4.36-5.78); RDW 13.4 % (11.8-14.1); RDW-SD 39.6 fL; WBC 12.06 10^3/uL (4.4-10.8)
[2022-05-26 21:42] LABS: Absolute Neutrophil Count 7.14 10^3/uL (1.2-6.7)
[2022-05-26] MEDS: Omnipaque 350 MG/ML 100 ML BTL IJ (21:51)
[2022-05-26] MEDS: Normal Saline - Diluent 50 ML VIAL IJ (21:51)
[2022-05-26 22:00] LABS: ALT 33 U/L (16-63); AST 26 U/L (15-37); Alkaline Phosphatase 102 U/L (46-116); Anion Gap 11.4 mmol/L (3-11); BUN 22 mg/dL (7-18); CO2 27.6 mmol/L (21.0-32.0); Calcium 9.9 mg/dL (8.5-10.1); Chloride 98 mmol/L (98-107); Estimated GFR 88.88 (mL/min/1.73m2); Glucose 98 mg/dL (74-106); Magnesium 2.1 mg/dL (1.8-2.4); Potassium 4.1 mmol/L (3.5-5.1); Sodium 137 mmol/L (136-145); Total Protein 9.1 g/dL (6.4-8.2); Troponin I < 50 ng/L (<or=60)
[2022-05-26 22:37] LABS: Bilirubin, Total 0.4 mg/dL (0.2-1.0); TSH 2.46 uIU/mL (0.36-3.74)
[2022-05-26] MEDS: Normal Saline 500 ML IV (22:53)
[2022-05-26] MEDS: Acetaminophen 325 MG TAB 650 MG PO (23:02)
--- NOTE | 2022-05-26 23:03 | DI.VRAD_ITS ---
Addendum created by Anshul Vogel MD on 05/26/2022 11:31:59 PM EST: Findings were discussed with PEACE RODRIGUEZ at 05/26/2022 11:27 PM EST. There is redemonstration of a pituitary gland impinging upon the optic chiasm and splaying the internal carotid arteries laterally. The mass does not appear to have increased in size from the MRI of 06/16/2020, but comparison is limited by the fact that these are 2 different modalities. Initial report created on 05/26/2022 11:02:35 PM EST: PROCEDURE INFORMATION: Exam: CTA Head Without And With Contrast, Arteriography Exam date and time: 05/26/2022 9:48 PM Age: 56 years old Clinical indication: Stroke-like symptoms; Syncope/collapse; Additional info: Syncope, visual disturbances, HX of seizures TECHNIQUE: Imaging protocol: Computed tomographic angiography of the head without and with contrast. Exam focused on the arteries. 3D rendering (Not supervised by radiologist): MIP and/or 3D reconstructed images were created by the technologist. Radiation optimization: All CT scans at this facility use at least one of these dose optimization techniques: automated exposure control; mA and/or kV adjustment per patient size (includes targeted exams where dose is matched to clinical indication); or iterative reconstruction. Contrast material: OMNI 350; Contrast volume: 100 ml; Contrast route: INTRAVENOUS (IV); Other technique: STROKE PROTOCOL was implemented. COMPARISON: CT BRAIN NECK CTA 05/18/2020 3:20 PM FINDINGS: ANTERIOR CIRCULATION: Right internal carotid artery: The intracranial segment is patent with no significant stenosis. No aneurysm. Right middle cerebral artery: No occlusion or significant stenosis. No aneurysm. Right anterior cerebral artery: No occlusion or significant stenosis. No aneurysm. Left internal carotid artery: The intracranial segment is patent with no significant stenosis. No aneurysm. Left middle cerebral artery: No occlusion or significant stenosis. No aneurysm. Left anterior cerebral artery: No occlusion or significant stenosis. No aneurysm. POSTERIOR CIRCULATION: Right vertebral artery: No occlusion or significant stenosis. No aneurysm. Left vertebral artery: No occlusion or significant stenosis. No aneurysm. Basilar artery: No occlusion or significant stenosis. No aneurysm. Right posterior cerebral artery: origin from the carotid circulation, anatomic variant. No occlusion or significant stenosis. No aneurysm. Left posterior cerebral artery: No occlusion or significant stenosis. No aneurysm. HEAD: Brain: No acute intracranial hemorrhage. No significant white matter disease. No edema. There is no mass effect or midline shift. The Cerebral ventricles: No ventriculomegaly. Bones/joints: No acute fracture. Paranasal sinuses: Visualized sinuses are normal. There are no air-fluid levels. Mastoid air cells: Visualized mastoids are normal. No mastoid effusion. Soft tissues: Unremarkable. IMPRESSION: 1. No large intracranial vessel occlusion or significant stenosis. 2. Unremarkable CT head. ASSESSMENT: ASPECTS ([place] Stroke Program Early CT Score) is 10. PROCEDURE INFORMATION: Exam: CTA Neck Without And With Contrast Exam date and time: 05/26/2022 9:48 PM Age: 56 years old Clinical indication: Stroke-like symptoms; Syncope/collapse; Additional info: Syncope, visual disturbances, HX of seizures TECHNIQUE: Imaging protocol: Computed tomographic angiography of the neck without and with contrast. 3D rendering (Not supervised by radiologist): MIP and/or 3D reconstructed images were created by the technologist. Radiation optimization: All CT scans at this facility use at least one of these dose optimization techniques: automated exposure control; mA and/or kV adjustment per patient size (includes targeted exams where dose is matched to clinical indication); or iterative reconstruction. Contrast material: OMNI 350; Contrast volume: 100 ml; Contrast route: INTRAVENOUS (IV); COMPARISON: CT BRAIN NECK CTA 05/18/2020 3:20 PM FINDINGS: Right common carotid artery: No significant stenosis. No dissection or occlusion. Right internal carotid artery: No significant stenosis of the extracranial segment. No dissection or occlusion. Right external carotid artery: No occlusion or significant stenosis of the origin. Left common carotid artery: No significant stenosis. No dissection or occlusion. Left internal carotid artery: No significant stenosis of the extracranial segment. No dissection or occlusion. The left ICA takes a retropharyngeal course, anatomic variant. Left external carotid artery: No occlusion or significant stenosis of the origin. Right vertebral artery: No significant stenosis. No dissection or occlusion. Left vertebral artery: No significant stenosis. No dissection or occlusion. Soft tissues: No significant soft tissue swelling. Bones/joints: No acute fracture. IMPRESSION: 1. Normal right and left extracranial internal carotid arteries by NASCET criteria. 2. The left extracranial internal carotid artery takes a retropharyngeal course (anatomic variant) and may mimic a pulsatile retropharyngeal mass. There is no significant stenosis or occlusion. 3. Normal bilateral vertebral arteries. REFERENCES: NASCET CRITERIA. The degree of stenosis in the cervical segment of the internal carotid artery is based on NASCET criteria. Normal is no stenosis. Mild is less than 50% stenosis. Moderate is 50-69% stenosis. Severe is 70% to 99% stenosis. Total occlusion is no detectable patent lumen. Dictated and Authenticated by: Anshul Vogel MD. Ordering:LOPEZ Eldridge MD
[2022-05-26 23:06] LABS: Bilirubin Negative (Negative); Blood Negative (Negative); Clarity Clear (Clear); Glucose Negative (Negative); Ketones Negative (Negative); Leukocyte Esterase Negative (Negative); Nitrite Negative (Negative); Urobilinogen 0.2 EU/dL (Up TO 0.2)
--- NOTE | 2022-05-26 23:12 | NUR.NOTE ---
Per Jazmyn Beard, referral made to care management for Neurology for worsening: loss of consciousness and seizure like activity. The patient does have an appt scheduled for August, however the provider would like the patient seen sooner within the next few weeks. Put the referral in the care manger's box for assistance with the magda.Nursing Note:
[2022-05-26 23:23] LABS: *AMPHETAMINES SCREEN URINE Negative (Negative); *BARBITURATES SCREEN URINE Negative (Negative); *BENZODIAZEPINES SCREEN URINE Negative (Negative); Cannabinoids THC Positive (Negative); Cocaine Screen,Urine Negative (Negative); METHADONE URINE SCREEN Negative (Negative); OPIATES URINE SCREEN Negative (Negative)
[2022-05-26 23:25] LABS: Tricyclic Antidepressants Negative (Negative)
[2022-05-28 17:16] LABS: Levetiracetam 24.1 mcg/mL
== END 2022-05-26 23:43 | disposition home or self-care (01) ==
PROVIDERS: Emergency Provider Registered Nurse Emergency; PCP Nurse Practitioner Family
DX: S06.9XAA Unspecified intracranial injury with loss of consciousness status unknown, initial encounter (principal); S01.81XA Laceration without foreign body of other part of head, initial encounter; R56.9 Unspecified convulsions; H55.00 Unspecified nystagmus; D72.829 Elevated white blood cell count, unspecified; J44.9 Chronic obstructive pulmonary disease, unspecified; E11.9 Type 2 diabetes mellitus without complications; I10 Essential (primary) hypertension; E66.9 Obesity, unspecified; Z79.82 Long term (current) use of aspirin; Z79.4 Long term (current) use of insulin; W22.01XA Walked into wall, initial encounter; Y93.01 Activity, walking, marching and hiking
CPT/HCPCS: 36415; 36416; 70496; 70498; 80053; 80307; 82962; 93005; 96360; 99285; 80177; 81003; 83735; 84443; 84484; 85025; 93010; J3490

== ENCOUNTER 2022-07-01 11:39 | Emergency (ER) | payer MEDICAID, SELFPAY ==
[2022-07-01] VITALS (173 sets, daily range): BP systolic 120–151; BP diastolic 74–102; PULSE 59–72; RESP 9–28; TEMP 36.9; O2SAT 94–100
--- NOTE | 2022-07-01 11:15 | RT.EKG_ITS ---
APPROVED REPORT Exam: Resting ECG Reason for Exam: Chest pain Patient Location: E HR:70 bpm ECG Measurements Heart Rate 70 AXIS SC 178 P 52 QRSd 86 QRS 15 QT 365 T 40 QTc 395 Conclusion Sinus rhythm...normal P axis, V-rate 60- 99 Low voltage, precordial leads...precordial leads <1.0mV. Sinus. Low voltage. No STEMI. I have reviewed and interpreted ECG and agree with software generated interpretation.
--- NOTE | 2022-07-01 11:30 | DI.RAD_ITS ---
Exam(s) XR CHEST 2V PA LATERAL EXAM: XR CHEST 2V PA LATERAL CLINICAL HISTORY: Chest pain TECHNIQUE: 2D digital imaging was performed of the chest. Two images were obtained. PA and lateral views were obtained. COMPARISON: CR XR CHEST 2V PA LATERAL from 09/02/2020 CR,XR XR PORTABLE CHEST AP from 02/10/2022 FINDINGS: MEDIASTINUM: Normal. HEART: Normal. PULMONARY VASCULATURE: Normal. LUNGS: Clear. PLEURAL SPACE: No pleural effusion or pneumothorax. BONE:Within normal limits for the patient's age. OTHER FINDINGS:Normal. IMPRESSION: No acute pulmonary findings. DATA REPOSITORY: RADIATION DOSE DELIVERED:
--- NOTE | 2022-07-01 11:42 | W.ED.GENAD ---
Discharge Plan Disposition Patient Disposition: Home Discharge Details Clinical Impression: Chest pain Primary Care Provider: Mirna Vicente ED Provider: Oedtte York Home Meds and New Rx's Prescriptions: Continued levetiracetam [Keppra] 1,000 mg tablet 1,000 mg PO Q12H Qty: 180 3RF Emgality Pen 120 mg/mL pen injector 240 mg subcut ONCE Qty: 2 0RF Rx Instructions: as a single dose; administer as two 120 mg injections at separate sites. sertraline 100 mg tablet 100 mg PO DAILY omeprazole 40 mg capsule,delayed release(DR/EC) 40 mg PO DAILY Qty: 30 5RF metformin [Glucophage] 500 mg tablet See Rx Instructions .ROUTE .COMPLEX Rx Instructions: 3 tabs am and 2 tabs HS cyclobenzaprine 10 mg tablet 10 mg PO HS PRN loratadine 10 mg tablet 10 mg PO DAILY PRN glipizide [Glucotrol XL] 10 MG tablet extended release 24hr 10 mg PO BID albuterol sulfate [ProAir HFA] 1 PUFF HFA aerosol inhaler 2 puff Inhalation Q4H PRN PRNQty: 1 0RF Patient Comments: not using lately hydrochlorothiazide 12.5 MG capsule 25 mg PO QAM Patient Comments: unknown dose Victoza 2-Jesús 0.6 MG/0.1 ML pen injector 1.8 mg . DAILY AM Hold Instructions: Home Medication placed on hold at Doctor's office aspirin 81 mg Tablet,Chewable 81 mg PO DAILY Patient Comments: Doesnt take regularly like should losartan 25 mg Tablet 25 mg PO DAILY insulin glargine [Lantus Solostar U-100 Insulin] 100 unit/mL (3 mL) Insulin Pen 22 unit SUBCUT HS pseudoephedrine-ibuprofen 30-200 mg Tablet 1 tab PO PRN PRN Excedrin Migraine 250-250-65 mg tablet 1 tab PO ONCE PRN Discharge Instructions Instructions: Chest Pain (ED) Additional Instructions: please follow-up with your doctor tomorrow i have ordered a stress test, please keep information sheet and call to schedule/follow instructions listed return immediately with return of symptoms or new/progressing pain Referrals: Mirna Vicente [Primary Care Provider] - 1 day Discharge Data Discharge Date/Time-TO BE ENTERED AT DEPARTURE: 07/01/22 18:22 Medical Decision Making <Kalpesh Albrecht NP - Last Filed: 07/03/22 09:21> Patient presenting to the emergency department for chief complaint of chest pain. Patient called EMS due to becoming dizzy while taking his dog outside and then starting having crushing substernal chest pain radiating down left arm with some paresthesias to left arm. Patient denies any back pain or abdominal pain, syncope, shortness of breath. Patient does have history of diabetes, obesity, and seizure disorder. Physical exam shows no diaphoresis, stable vital signs, and no obvious abnormal physical exam findings. We will plan on performing EKG and labs along with chest x-ray. Patient also does have history of significant gastritis so we will give GI cocktail along with aspirin pending results. See physician interpretation for full interpretation of EKG but upon my review patient has a rate of 70, sinus rhythm, no criteria to meet STEMI qualification but will continue to monitor. Reviewed patient's labs and CBC is nondiagnostic, CMP shows slightly elevated glucose at 157, initial troponin is undetectable. Upon my review and review of radiologist interpretation no acute cardiopulmonary findings on chest x-ray. Patient reassessed and continues to endorse chest pain and states very little improvement with acetaminophen. Due to this and patient's elevated blood pressure will use nitro to see if this helps. nurse staff community health stated moderate improvement with nitro and a total of 3 doses of 0.4 were given. We will continue to monitor. Second troponin was negative but given that patient still has some discomfort while improving and high risk presentation we will perform delta troponin prior to final disposition. Patient is agreeable to this plan of care. Imaging Data Radiologic Study: Attestation: I personally reviewed and interpreted this imaging study as follows: Imaging: X-Ray Radiologist's impression: Exam(s) XR CHEST 2V PA LATERAL EXAM: XR CHEST 2V PA LATERAL CLINICAL HISTORY: Chest pain TECHNIQUE: 2D digital imaging was performed of the chest. Two images were obtained. PA and lateral views were obtained. COMPARISON: CR XR CHEST 2V PA LATERAL from 09/02/2020 CR,XR XR PORTABLE CHEST AP from 02/10/2022 FINDINGS: MEDIASTINUM: Normal. HEART: Normal. PULMONARY VASCULATURE: Normal. LUNGS: Clear. PLEURAL SPACE: No pleural effusion or pneumothorax. BONE:Within normal limits for the patient's age. OTHER FINDINGS:Normal. IMPRESSION: No acute pulmonary findings. Lab Data Lab results reviewed: Yes I reviewed the patient's lab results. <JOSE D Vivas - Last Filed: 07/01/22 21:01> Patient presenting to the emergency department for chief complaint of chest pain. Patient called EMS due to becoming dizzy while taking his dog outside and then starting having crushing substernal chest pain radiating down left arm with some paresthesias to left arm. Patient denies any back pain or abdominal pain, syncope, shortness of breath. Patient does have history of diabetes, obesity, and seizure disorder. Physical exam shows no diaphoresis, stable vital signs, and no obvious abnormal physical exam findings. We will plan on performing EKG and labs along with chest x-ray. Patient also does have history of significant gastritis so we will give GI cocktail along with aspirin pending results. See physician interpretation for full interpretation of EKG but upon my review patient has a rate of 70, sinus rhythm, no criteria to meet STEMI qualification but will continue to monitor. Reviewed patient's labs and CBC is nondiagnostic, CMP shows slightly elevated glucose at 157, initial troponin is undetectable. Upon my review and review of radiologist interpretation no acute cardiopulmonary findings on chest x-ray. Patient reassessed and continues to endorse chest pain and states very little improvement with acetaminophen. Due to this and patient's elevated blood pressure will use nitro to see if this helps. nurse staff community health stated moderate improvement with nitro and a total of 3 doses of 0.4 were given. We will continue to monitor. Second troponin was negative but given that patient still has some discomfort while improving and high risk presentation we will perform delta troponin prior to final disposition. Patient is agreeable to this plan of care. LB: Care was accepted from Eligio Albrecht nurse practitioner pending third troponin, patient is considered high risk status and when obtained does report feeling significant symptomatic improvement and in fact patient does not have any current chest pain He has had 2 negative troponins and EKG He is pending repeat troponin at the 3-hour [place] Secondary to capacity issues and reassuring observation, patient feels comfortable being discharged home at this time, he is aware that he is at increased risk for coronary artery disease and that he will need very close outpatient follow-up, he is ordered a nuc med test secondary to inability to walk on a treadmill, he is given very low threshold to return should he have new or worsening complaints and discharged home in stable condition and stable vitals, chest pain-free without any additional interventions necessary I did review patient's prior CAT scan of his thorax which does not show acute abnormality, specifically no evidence of aneurysm HPI <Kalpesh Albrecht NP - Last Filed: 07/03/22 09:21> General Mode of arrival: EMS. Date/Time Provider Initiated Documentation: 07/01/22 11:40. Limitations to Documentation: no limitations. Information obtained by: patient and RN notes reviewed. History of Present Illness 56 year old M presents to the emergency department with the chief complaint of Chest pain, described as moderate, with intensity rated at 8. Quality is described as sharp, and is localized to the chest. Patient extremity. Patient started experiencing this hour(s) (1) and it has been constant. No relieving factors improve symptom(s), Other factors that worsen symptoms (Outside walking dog) . Patient notes no other symptoms.. Patient did receive the following treatments prior to arrival, none Related Data Home Medications Medication Instructions Recorded Confirmed albuterol sulfate 90 mcg/actuation 2 puff inhalation Q4H PRN PRN #1 07/31/12 07/01/22 aerosol inhaler (ProAir HFA) inh glipizide 10 mg tablet, extended 10 mg PO BID 07/31/12 07/01/22 release 24 hr (Glucotrol XL) hydrochlorothiazide 12.5 mg capsule 25 mg PO QAM 06/07/17 07/01/22 liraglutide 0.6 mg/0.1 mL (18 mg/3 1.8 mg . DAILY AM 06/07/17 07/01/22 mL) subcutaneous pen injector (Victoza 2-Jesús) insulin glargine 100 unit/mL (3 22 unit subcut HS 05/12/20 07/01/22 mL) subcutaneous pen (Lantus Solostar U-100 Insulin) losartan 25 mg tablet 25 mg PO DAILY 05/12/20 07/01/22 cyclobenzaprine 10 mg tablet 10 mg PO HS PRN 07/03/20 07/01/22 loratadine 10 mg tablet 10 mg PO DAILY PRN 07/03/20 07/01/22 metformin 500 mg tablet See Rx Instructions .Route .COMPLEX 07/03/20 07/01/22 (Glucophage) sertraline 100 mg tablet 100 mg PO DAILY 07/13/21 03/02/23 pseudoephedrine-ibuprofen 30 1 tab PO PRN PRN 11/02/21 07/01/22 mg-200 mg tablet aspirin 81 mg chewable tablet 81 mg PO DAILY 02/10/22 07/01/22 omeprazole 40 mg capsule,delayed 40 mg PO DAILY #30 caps 02/16/22 07/01/22 release febbyio-bxscnvphjaelh-mtnrzobw 250 1 tab PO ONCE PRN 06/07/22 07/01/22 mg-250 mg-65 mg tablet (Excedrin Migraine) galcanezumab-gnlm 120 mg/mL 240 mg (2 mL) subcut ONCE #2 mL 06/07/22 07/01/22 subcutaneous pen injector (Emgality Pen) levetiracetam 1,000 mg tablet 1,000 mg PO Q12H #180 tabs 06/07/22 07/01/22 (Keppra) Previous Rx's Medication Instructions Recorded albuterol sulfate 90 mcg/actuation 2 puff inhalation Q4H PRN PRN #1 07/31/12 aerosol inhaler (ProAir HFA) inh omeprazole 40 mg capsule,delayed 40 mg PO DAILY #30 caps 02/16/22 release galcanezumab-gnlm 120 mg/mL 240 mg (2 mL) subcut ONCE #2 mL 06/07/22 subcutaneous pen injector (Emgality Pen) levetiracetam 1,000 mg tablet 1,000 mg PO Q12H #180 tabs 06/07/22 (Keppra) Allergies Allergy/AdvReac Type Severity Reaction Status Date / Time Penicillins Allergy Severe Anaphylaxis Unverified 07/01/22 11:42 codeine [Codeine] Allergy Mild Hives Unverified 07/01/22 11:42 lisinopril Allergy Anaphylaxsi Unverified 07/01/22 11:42 s General Stated Complaint: Chest Pain ASHLEY: 2 Review of Systems <Kalpesh Albrecht NP - Last Filed: 07/03/22 09:21> Constitutional Constitutional: Denies chills, Denies fever(s) and Denies malaise Cardiovascular Cardiovascular: Reports as per HPI, Reports chest pain, Denies chest pain with activity, Denies syncope, Denies irregular heart rhythm, Reports lightheadedness, Denies palpitations and Denies dyspnea Respiratory Respiratory: Denies cough, Denies hemoptysis and Denies dyspnea Gastrointestinal Gastrointestinal: Denies abdominal pain, Denies nausea and Denies vomiting Neurologic Neurologic: Denies syncope Psychiatric Psychiatric: Denies anxiety Endocrine Endocrine: Denies cold intolerance, Denies heat intolerance and Denies palpitations PFSH <Kalpesh Albrecht NP - Last Filed: 07/03/22 09:21> All Active Problems (Updated 07/01/22 @ 18:15 by JOSE D Vivas) Chest pain (Acute) Esophagitis (Acute) Gastritis (Acute) Erosive gastritis (Acute) Fine's esophagus determined by biopsy (Acute) Spell of altered cognition (Acute) Irregular heart beat (Acute) Chronic headache (Acute) Medication overuse headache (Acute) Migraine headache without aura (Acute) Seizure-like activity (Acute) Laceration of head (Acute) Depression (Chronic) Insurance coverage problems (Acute) Problems related to other legal circumstances (Acute) Problems in relationship with spouse or partner (Acute) Hematemesis (Acute) Pharyngoesophageal dysphagia (Acute) Thyroid nodule (Acute) Medical History Abdominal pain, LLQ Adjustment disorder Amputation of lower limb Asthma Lanza angioma COPD (chronic obstructive pulmonary disease) Diabetes Edema Erectile dysfunction Frequent PVCs Grief reaction Headache Hemoptysis Hypertension Kidney stones Marital problem Morbid obesity Multinodular thyroid Other problems related to social environment Personal history of fall Phimosis Pituitary adenoma Seasonal allergies Sleep apnea Suicidal ideation Thyroid mass Tobacco abuse Transient neurological symptoms Seizure-like activity pt. 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; hardware present Family History Other Diabetes Social History Smoking/Tobacco Use Status: Current every day Tobacco Type: smokeless tobacco Tobacco: How many years used: 43 Smokeless tobacco user: chewing tobacco and snuff Smoking risk assessment performed?: Yes Alcohol Intake: current Alcohol Intake frequency: holidays/special occasions only Drug use: Occasionally Substance use type: marijuana Details: 1-2 week Household members: children Number of Children: 4 Education Level: high school current occupation: [employer] Do you feel safe at home: Yes Do you feel safe in your relationship?: Yes Exam <Kalpesh Albrecht NP - Last Filed: 07/03/22 09:21> Const General: cooperative, no acute distress, not diaphoretic and not ill appearing Nutritional Appearance: obese and overweight Orientation: alert, awake and oriented x3 Limitations: mental status not altered Neck Neck: normal visual inspection, full ROM, trachea midline, supple and no anterior neck swelling Thyroid: thyroid normal Carotids: normal carotid upstroke and no bruits Chest Chest: normal inspection of the chest Resp Effort & Inspection: normal respiratory effort and able to speak in complete sentences Auscultation: clear to auscultation bilaterally Cardio Jugular venous pressure: no JVD Palpation: normal PMI Rate: regular rate Rhythm: regular rhythm Heart Sounds: S1 normal, S2 normal, no click, no gallops, no murmurs and no rubs Bruits: no abdominal aortic bruits and no carotid bruits Pulses: radial pulses present bilaterally 2+ and normal peripheral pulses GI Inspection: normal to inspection and obesity Palpation: soft, no aortic enlargement, no pulsatile masses and nontender Auscultation: normal bowel sounds Skin General skin exam: no rashes or lesions noted Neuro General: patient alert, patient awake, patient oriented x3, tone normal and moves all extremities Course <Kalpesh Albrecht NP - Last Filed: 07/03/22 09:21> Vital Signs Vital signs: Vital Signs Temperature 36.9 C 07/01/22 11:32 Pulse 68 07/01/22 11:32 Respiratory Rate 21 07/01/22 11:32 Blood Pressure 145/95 H 07/01/22 11:32 Pulse Oximetry 99 07/01/22 11:32 Temperature 36.9 C 07/01/22 11:32 Temperature Source Oral 07/01/22 11:32 Pulse 68 07/01/22 11:32 Respiratory Rate 21 07/01/22 11:32 Respiratory Effort Short of Breath 07/01/22 11:41 Blood Pressure 145/95 H 07/01/22 11:32 Blood Pressure Position Sitting 07/01/22 11:32 Pulse Oximetry 99 07/01/22 11:32 Oxygen Delivery Method Room Air 07/01/22 11:32 Oxygen Flow Rate 0 07/01/22 11:32 Pain Level 8 07/01/22 11:32 Sign Out <Kalpesh Albrecht NP - Last Filed: 07/03/22 09:21> Sign Out Data: Sign Out Comment: Signed out pending third troponin and reassessment prior to discharge. Last updated by Kalpesh Albrecht NP at 07/01/22 15:54 PAWSS <Kalpesh Albrecht NP - Last Filed: 07/03/22 09:21> Have you Been Recently Intoxicated or Drunk Within the Last 30 days?: No Have you Ever Experienced Previous Episodes of Alcohol Withdrawal?: No Have you ever Experienced Withdrawal Seizures?: No Have you ever Experienced Delirium Tremens(DT)s?: No Have you ever undergone Alcohol Rehabilitation Treatment (i.e, inpt ot outpatient treatment programs)?: No Have you ever Experienced Blackouts?: No Have you ever Combined Alcohol with other Downers within the last 90 days?: No Have you ever Combined Alcohol with any other Substance of Abuse during the last 90 days?: No Result: 0 <JOSE D Vivas - Last Filed: 07/01/22 21:01> Result: 0
[2022-07-01 11:44] LABS: Abs Immature Grans 0.05 10^3/uL (0.0-0.06); Absolute Basophil Count 0.07 10^3/uL (0.0-0.2); Absolute Eosinophil Count 0.12 10^3/uL (0.0-0.7); Absolute Lymphocyte Count 2.65 10^3/uL (1.2-3.4); Absolute Monocyte Count 0.66 10^3/uL (0.1-0.8); Absolute Neutrophil Count 6.53 10^3/uL (1.2-6.7); Basophils % 0.7; Eosinophils % 1.2; HGB 15.4 g/dL (13.5-17.5); Immature Grans % 0.5; Lymphocytes % 26.3; MCH 25.3 pg (27.0-33.0); MCHC 31.4 % (32.0-36.0); MCV 81 fL (80-95); MPV 8.9 fL (8.0-11.0); Monocytes % 6.5; Neutrophils % 64.8; Platelet Count 270 10^3/uL (130-400); RBC 6.09 10^6/uL (4.36-5.78); RDW 13.7 % (11.8-14.1); RDW-SD 39.8 fL; WBC 10.08 10^3/uL (4.4-10.8)
[2022-07-01] MEDS: Aspirin 81 MG CHEW 324 MG CH (11:50)
[2022-07-01 12:07] LABS: ALT 28 U/L (16-63); AST 19 U/L (15-37); Albumin 3.7 g/dL (3.4-5.0); Alkaline Phosphatase 93 U/L (46-116); BUN 16 mg/dL (7-18); Bilirubin, Total 0.3 mg/dL (0.2-1.0); Calcium 9.4 mg/dL (8.5-10.1); Chloride 100 mmol/L (98-107); Estimated GFR 88.88 (mL/min/1.73m2); Glucose 157 mg/dL (74-106); Magnesium 2.1 mg/dL (1.8-2.4); Potassium 4.4 mmol/L (3.5-5.1); Sodium 138 mmol/L (136-145); Total Protein 8.1 g/dL (6.4-8.2); Troponin I < 50 ng/L (<or=60)
--- NOTE | 2022-07-01 12:08 | NUR.NOTE ---
pt states no relief in chest pain after mylanta and lidocaine. LIGHT CLEANER aware. pt does appear comfortable at this time.
[2022-07-01] MEDS: ACETAMINOPHEN 1,000 MG/100 ML BTL 400 MG IVPB (12:30)
[2022-07-01] MEDS: nitroGLYcerin 0.4 MG TAB SL ×3 (13:38→14:14)
--- NOTE | 2022-07-01 13:38 | NUR.NOTE ---
pt states some improvement in chest pain after IV Tylenol. SL nitro administered and will monitor pain
--- NOTE | 2022-07-01 13:47 | NUR.NOTE ---
pt notes some improvement from a 5/10 to a 3-4/10 in cheat pain after SL nitro
[2022-07-01 14:53] LABS: Troponin I < 50 ng/L (<or=60)
[2022-07-01 17:55] LABS: Troponin I < 50 ng/L (<or=60)
--- NOTE | 2022-07-01 18:17 | NUR.NOTE ---
Nursing Note: Referral faxed to DI for [facility] Nuclear Medicine Pharmacological Stress Test for chest pain.
== END 2022-07-01 18:22 | disposition home or self-care (01) ==
PROVIDERS: Nurse Practitioner Family; Emergency Provider Physician Assistant; PCP Nurse Practitioner Family
DX: R07.2 Precordial pain (principal); E11.65 Type 2 diabetes mellitus with hyperglycemia; G40.909 Epilepsy, unspecified, not intractable, without status epilepticus; J44.9 Chronic obstructive pulmonary disease, unspecified; I10 Essential (primary) hypertension; Z79.4 Long term (current) use of insulin; Z79.84 Long term (current) use of oral hypoglycemic drugs
CPT/HCPCS: 36415; 80053; 93005; 96365; 99284; 71046; 83735; 84484; 85025; 93010; J0131

== ENCOUNTER 2022-07-06 01:20 | Outpatient (CLI) | payer MEDICAID, SELFPAY ==
--- NOTE | 2022-07-06 | DI.NM_ITS ---
APPROVED REPORT Exam: Pharmacologic Patient Location: Out-Patient Room/Bed: Stress Nurse: Ashlyn Stephens RN Ordering Provider:ODIN JON, Contact Number: [phone] BMI: 37.89 Baseline Rhythm: Sinus Rhythm Indications: Chest pain Medical History Medical History: Hypertension, diabetes type 2, asthma, obesity, COPD, migraines, kidney stones, mult inodular thyroid, pituitary adenoma, TAMMY, tobacco Cardiac Medications: Levetriacetam, omeprazole, metformin, loratidine, glipizide, albuterol sulfate, hydrochlorothiazide, victoza, aspirin, losartan, insulin glargine Allergies: Penicillins, codein, lisinopril Cardiac Risk Factors: Hypertension, diabetes type 2, asthma, obesity, smoker current, COPD Previous Cardiac Procedures: None Pretest Chest Pain Characteristics: None Exercise History: Sedentary Physical Disabilities: Legs Lung Sounds: Clear to auscultation Heart Sounds: Regular Stress Test Details Test: Exercise stress converted to pharmacologic stress due to failure to obtain a diagnostic stress test. Nuclear Acquisition: Rest Tc-99m/Stress Tc-99m 1 day Rest Isotope: Tc-99m Sestamibi. Dose: 12.0 Date: 07/06/2022 Injection Time: 0915 Stress Isotope: Tc-99m Sestamibi. Dose: 37.0 Date: 07/06/2022 Injection Time: 1117 HR Resting HR Supine: 67 bpm Max Heart Rate (APMHR): 165.342926 bpm Resting HR Standin bpm Target HR (85% APMHR): 140.015898 bpm Max HR Achieved: 117 bpm % of APMHR: 70.91 Recovery HR: 82 bpm BP Resting BP Supine: 124/86 mmHg Resting BP Standin/92 mmHg Max BP: 152/90 mmHg Recovery BP: 140/90 mmHg ECG Resting ECG: Sinus Rhythm Ectopy: None Stress ECG: Sinus Tachycardia ST Change: Nondiagnostic low heart rate Arrhythmia: None Recovery ECG: Sinus Rhythm Recovery ST Change: Nondiagnostic low heart rate Recovery Arrhythmia: None Clinical Reason for Termination: Fatigue Stress Symptoms: General Fatigue, Dyspnea Rate Pressure Product: 91015 Stress ECG Conclusion 1. The resting electrocardiogram showed poor R wave progression 2. Patient underwent testing using a combination of low-level exercise and pharmacologic stress with regadenoson 3. Peak heart rate achieved was 71% of predicted for age 4. The electrocardiographic portion of the test was nondiagnostic 5. See [facility] report Stress Test Summary STAGE Time (mins) Speed (mph) Grade (%) HR BP SpO2 SYMPTOMS METS Supine 67 124/86 Standing 71 138/92 95% 1 3 1.7 10 103 95% 4.5 1 min post Lexiscan injection 112 140/70 98% Mild SOB 3 min post Lexiscan injection 96 152/90 99% SOB resolved 6 min post Lexiscan injection 82 140/90 99% After entering second stage of Arvind protocol, patient terminated treadmill test and it was converted to pharmacologic. Pt ambulated on treadmill at speed of 1.1 mph and 0% grade during Regadenoson admi nistration. Tolerated testing well. [facility] Conclusion Myocardial perfusion is normal. There is no ischemia or evidence of prior infarction EF 52%, normal wall motion Radiologist Interpretation Radiologist agrees with Mobile Sales Assistant's Interpretation. Radiologist Interpretation by: Gabriella Hunter MD
[2022-07-06] MEDS: Regadenoson 0.4 MG/5 ML SYR IVP (11:40)
== END 2022-07-06 01:40 ==
LOC: DI 01:20
PROVIDERS: PCP Nurse Practitioner Family; Visit Provider Physician Assistant
DX: R07.89 Other chest pain (principal)
CPT/HCPCS: 78452; 93017; J2785

== ENCOUNTER 2022-07-19 17:10 | Outpatient (REF) | payer MEDICAID, SELFPAY ==
[2022-07-19 19:27] LABS: Abs Immature Grans 0.05 10^3/uL (0.0-0.06); Absolute Basophil Count 0.09 10^3/uL (0.0-0.2); Absolute Eosinophil Count 0.15 10^3/uL (0.0-0.7); Absolute Lymphocyte Count 3.12 10^3/uL (1.2-3.4); Absolute Monocyte Count 0.94 10^3/uL (0.1-0.8); Basophils % 0.8; Eosinophils % 1.4; HCT 50.9 % (40.0-50.0); Immature Grans % 0.5; Lymphocytes % 28.2; MCH 25.4 pg (27.0-33.0); MCHC 31.4 % (32.0-36.0); MCV 81 fL (80-95); MPV 9.8 fL (8.0-11.0); Monocytes % 8.5; Neutrophils % 60.6; Platelet Count 307 10^3/uL (130-400); RDW 13.8 % (11.8-14.1); RDW-SD 40.3 fL; WBC 11.06 10^3/uL (4.4-10.8)
[2022-07-19 19:47] LABS: Hemoglobin A1C 6.7 % (<5.7)
== END 2022-07-19 17:11 | disposition home or self-care (01) ==
LOC: NCHCN 17:10
PROVIDERS: PCP Nurse Practitioner Family; Visit Provider Nurse Practitioner Family
DX: E11.9 Type 2 diabetes mellitus without complications (principal); I10 Essential (primary) hypertension
CPT/HCPCS: 83036; 85025

== ENCOUNTER 2022-09-10 00:14 | Outpatient (CLI) | payer MEDICAID, SELFPAY ==
--- NOTE | 2022-09-10 07:15 | DI.MRI_ITS ---
Exam(s) MR BRAIN PITUITARY WO EXAM: MR BRAIN PITUITARY WO IV Contrast: mL of Magnevist contrast administered. CLINICAL HISTORY: f/u pituitary adenoma, d35.2 TECHNIQUE: Multiplanar multisequence MRI of the brain and pituitary gland was performed. CONTRAST MATERIAL: Noncontrast COMPARISON: MR MR BRAIN PITUITARY WO/W from 06/16/2020 Findings: VENTRICLES AND EXTRA AXIAL SPACES: Normal in size and morphology for the patient's age. HEMORRHAGE: None. CEREBRAL PARENCHYMA: No focus of restricted diffusion to suggest acute infarct. No space-occupying le shanti identified. MIDLINE SHIFT: None. BRAINSTEM/CEREBELLUM: Normal. CALVARIUM: Normal. VISUALIZED PARANASAL SINUSES/MASTOIDS: Clear. OTHER FINDINGS: None. PITUITARY: Pituitary stalk is midline. There is now an area of high signal on T1 and T2 weighted images within the pituitary fossa.. This may be secondary to treatment. There is a small amount of soft tissue de nsity seen along the anterior sella. No discrete mass.. The optic chiasm is unremarkable. The cavernous portions of both carotid arteries are unremarkable. Impression: Unremarkable MRI of the brain. There is high signal in the in the sella likely representing post treatment changes. No recurrence o f mass. DATA REPOSITORY:
== END 2022-09-10 00:34 ==
LOC: DI 00:14
PROVIDERS: PCP Nurse Practitioner Family; Visit Provider Psychiatry & Neurology Neurology
DX: D35.2 Benign neoplasm of pituitary gland (principal)
CPT/HCPCS: 70551

== ENCOUNTER 2023-02-21 01:29 | Outpatient (CLI) | payer MEDICAID, SELFPAY ==
--- NOTE | 2023-02-21 07:45 | DI.US_ITS ---
Exam(s) US THYROID EXAM: US THYROID CLINICAL HISTORY: assess for change,multinodular thyroid, e04.2. TECHNIQUE: Ultrasound thyroid performed using standard protocol. COMPARISON: US US THYROID from 02/25/2022 FINDINGS: Both thyroid lobes are slightly prominent in size. There are again noted nodules in both lobes the th yroid gland. RIGHT THYROID LOBE: Measures 2.8 cm AP x 2.4 cm wide x 0.3. cm craniocaudal Nodules in the right lobe are as follows: Nodule #1 Size: Measures 0.7 x 0.8 x 0.6 cm cm Composition: Spongiform- 0 points Echogenicity: Hypoechoic-2 points Shape: Wider than taller-0 points Margin: Smooth- 0 points Echogenic Foci: None or large comet-tail artifact- 0 points Total Points for this nodule: 2 ACR Ti-Rads Category: TR2 Nodule #2. More inferiorly there is a partially solid partially cystic nodule which measures 1.4 by 1 .4 by 1.0 cm. Size: Measures cm Composition: Mixed cystic-solid- 1 point Echogenicity: Hypoechoic- 2 points Shape: Wider than taller- 0 points Margin: Smooth-0 points Echogenic Foci: None-0 points Total points for this nodule: 3 ACR Ti-Rads Category: TR3. This nodule can be followed as it measures less than 2.5 cm. Nodule #3 this is the more inferior of 3 nodules in the right lobe, exhibiting somewhat indistinct kristy rders. Size: Measures approximately 1.7 by 1.7 by 2 cm. Composition: Solid or almost completely solid- 2 points Echogenicity: Hypoechoic-2 points Shape: Wider than taller- 0 points Margin: Somewhat indistinct-0 points Echogenic Foci: Contains macro calcifications-1 point Total points for this nodule: 5 ACR Ti-Rads Category: 4 This nodule requires ultrasound-guided FNA as it measures greater than 1.5 cm. ISTHMUS: Normal thickness. There are no nodules in the isthmus. LEFT THYROID LOBE: Measures 3.2 cm AP x 2.1 wide x 6.2 cm craniocaudal Nodule #1 located peripherally in the upper lobe region Size: Measures 1.1 x 0.9 x 1.0 cm Composition: Solid-2 points Echogenicity: Isoechoic-1 points Shape: Wider than taller-0 points Margin: Smooth-0 points Echogenic Foci: -0 points Total points for this nodule: 3 ACR Ti-Rads Category: 3 This nodule can be followed. Nodule #2 this is adjacent to the 1st nodule and has similar appearance Size: Measures 1.0 x 0.6 by 0.8 cm cm Composition: Solid-2 points Echogenicity: Hypoechoic-2 points Shape: Wider than taller-0 points Margin: Smooth-0 points Echogenic Foci: None-0 points Total Points for this nodule: 4 ACR Ti-Rads Category: 4 This nodule can be followed as it measures less than 1.5 cm. LYMPH NODES: There is no significant adenopathy. IMPRESSION: 1. Bilateral nodules as described individually above. 2. The most significant nodule is a solid nodule in the lower aspect of the right lobe which register is as a TR 4 nodule but should undergo ultrasound-guided FNA as it measures greater than 1.5 cm. Thi s nodule is more evident than it was on the prior study of January 2022. 3. There is no significant lymphadenopathy. DATA REPOSITORY:
== END 2023-02-21 01:49 ==
LOC: DI 01:29
PROVIDERS: PCP Nurse Practitioner Family; Visit Provider Otolaryngology
DX: E04.2 Nontoxic multinodular goiter (principal)
CPT/HCPCS: 76536

== ENCOUNTER → 2023-04-05 00:50 | Outpatient (CLI) | payer MEDICAID, SELFPAY ==
--- NOTE | 2023-04-05 08:15 | DI.US_ITS ---
Exam(s) US NEEDLE LOCAL OTHER WO RAD EXAM: US NEEDLE LOCAL OTHER WO RAD CLINICAL HISTORY: Right thyroid nodule TR 4,ultrasound guided bx,e04.2. COMPARISON: US US THYROID from 02/21/2023 TECHNIQUE: Ultrasound was performed for guidance with performing biopsy of right thyroid lesion. FINDINGS: Please see procedure note for details. DATA REPOSITORY:
--- NOTE | 2023-04-05 11:45 | PAPNONF_PTH ---
PATIENT: Gil Cunningham LOC: [place] U#:[id number] AGE/SX: 59/M ROOM: RE04/05/[address]: John Falcon MD : 1965 BED: DIS: SPEC #: [id number] RECD: 04/05/23 12:46 STATUS: BISI REQ #: [id number] ANGEL: 04/05/23 11:[address]: John Falcon DEPT: [facility] Cytology RECD BY: Odette Rushing ENTERED: 04/05/23 12:48 SP TYPE: EZEKIEL HERNANDEZ DR: Mirna Vicente Tissues: 1 - BODY FLUID CYTO-FINE NEEDLE ASPIRATE-[facility] Procedures: BODY FLUID CYTO-FINE NEEDLE ASPIRATE-[facility] Comments: [id number] (PATH FNA CONSULT) (REFRIGERATED)
--- NOTE | 2023-04-05 11:51 | W.PROCNOTE ---
Date of service: 04/05/23 Time of Service: 11:51 Procedure Note Date of procedure: 04/05/23 Procedure: Ultrasound-guided FNA, right thyroid nodule, pathology present Procedure Diagnosis: Right thyroid nodule meeting criteria for biopsy Procedure Indications: The patient has a right-sided thyroid nodule meeting criteria for biopsy. Options were explained to the patient regarding further management. He elected to undergo the above procedure. Consent was filled out and signed prior to the procedure. Procedure Description: The patient was positioned in supine position and prepped and draped in appropriate fashion with his neck extended. Ultrasound was used to localize the thyroid nodule on the right within the inferior portion of the thyroid and then 1% lidocaine with 1/100,000 epinephrine was injected in the skin and subcutaneous tissues overlying the mass. A 25-gauge needle was then passed into the thyroid nodule and multiple passes made. Cellular adequacy was verified by pathology and then 2 additional passes were made for Afirma testing again under ultrasound guidance. The site was inspected for relative hemostasis and a sterile dressing applied. The patient was then allowed to sit up, and stand and ambulate. His vital signs remained stable. He will call with any signs of infection. He will remove the bandage in 1 hour and not replace it. He will use Tylenol or ibuprofen if needed for discomfort. He will call if he does not hear from me within 1 week. He had no further questions. He is comfortable with the plan
== END ==
PROVIDERS: PCP Nurse Practitioner Family; Visit Provider Otolaryngology
DX: E04.2 Nontoxic multinodular goiter (principal)
CPT/HCPCS: 10005; 76942; 88104

== ENCOUNTER 2023-05-13 15:40 | Outpatient (REF) | payer MEDICAID, SELFPAY ==
[2023-05-13 19:08] LABS: ALT 35 U/L (16-63); AST 22 U/L (15-37); Albumin 3.7 g/dL (3.4-5.0); Alkaline Phosphatase 115 U/L (46-116); Anion Gap 7.1 mmol/L (3-11); BUN 9 mg/dL (7-18); Bilirubin, Total 0.3 mg/dL (0.2-1.0); CO2 26.9 mmol/L (21.0-32.0); CREATININE 0.9 mg/dL (0.70-1.30); Calcium 9.3 mg/dL (8.5-10.1); Calculated LDL 80 mg/dL (<100); Chloride 100 mmol/L (98-107); Cholesterol 141 mg/dL (<200); Estimated GFR 100.24 (mL/min/1.73m2); Glucose 233 mg/dL (74-106); HDL Cholesterol 37 mg/dL (40-60); Magnesium 1.9 mg/dL (1.8-2.4); Potassium 4.2 mmol/L (3.5-5.1); Sodium 134 mmol/L (136-145); Total Protein 8.2 g/dL (6.4-8.2); Triglyceride 121 mg/dL (<150)
[2023-05-13 19:31] LABS: Hemoglobin A1C 8.3 % (<5.7)
== END 2023-05-13 15:41 | disposition home or self-care (01) ==
LOC: NCHCN 15:40
PROVIDERS: PCP Nurse Practitioner Family; Visit Provider Nurse Practitioner Family
DX: I10 Essential (primary) hypertension (principal); E11.9 Type 2 diabetes mellitus without complications; K22.70 Barrett's esophagus without dysplasia
CPT/HCPCS: 80053; 80061; 83036; 83735

== ENCOUNTER 2023-08-29 16:08 | Outpatient (REF) | payer MEDICAID, SELFPAY ==
[2023-08-29 15:34] LABS: BUN 11 mg/dL (7-18); CREATININE 0.9 mg/dL (0.70-1.30); Calcium 9.8 mg/dL (8.5-10.1); Chloride 101 mmol/L (98-107); Estimated GFR 100.24 (mL/min/1.73m2); Glucose 113 mg/dL (74-106); Potassium 5.1 mmol/L (3.5-5.1); Sodium 138 mmol/L (136-145)
[2023-08-29 16:46] LABS: Hemoglobin A1C 8.8 % (<5.7)
== END 2023-08-29 16:09 | disposition home or self-care (01) ==
LOC: NCHCN 16:08
PROVIDERS: PCP Nurse Practitioner Family; Visit Provider Nurse Practitioner Family
DX: E11.9 Type 2 diabetes mellitus without complications (principal); R29.90 Unspecified symptoms and signs involving the nervous system
CPT/HCPCS: 80048; 83036

== ENCOUNTER 2023-09-03 20:08 | Emergency (ER) | payer MEDICAID, SELFPAY ==
[2023-09-03 20:17] VITALS: BP 149/93; PULSE 63; RESP 15; TEMP 36.6; O2SAT 98
--- NOTE | 2023-09-03 20:24 | ED.GENADUL_ITS ---
Discharge Plan Disposition Patient Disposition: Home Condition: Stable Discharge Details Clinical Impression: Contact dermatitis due to poison sanjuana Primary Care Provider: Mirna Vicente ED Provider: Jazmyn Beard Home Meds and New Rx's Prescriptions: New prednisone 20 mg tablet 60 mg PO DAILY 5 Days Qty: 15 0RF Continued sertraline 100 mg tablet 100 mg PO DAILY omeprazole 40 mg capsule,delayed release(DR/EC) 40 mg PO DAILY Qty: 30 5RF rosuvastatin 10 mg tablet 10 mg PO DAILY atogepant 30 mg tablet 30 mg PO DAILY Qty: 90 3RF levetiracetam [Keppra] 1,000 mg tablet 1,000 mg PO Q12H Qty: 180 3RF metformin [Glucophage] 500 mg tablet See Rx Instructions .ROUTE .COMPLEX Rx Instructions: 3 tabs am and 2 tabs HS cyclobenzaprine 10 mg tablet 10 mg PO HS PRN loratadine 10 mg tablet 10 mg PO DAILY PRN glipizide [Glucotrol XL] 10 MG tablet extended release 24hr 10 mg PO BID albuterol sulfate [ProAir HFA] 1 PUFF HFA aerosol inhaler 2 puff Inhalation Q4H PRN PRNQty: 1 0RF Patient Comments: not using lately hydrochlorothiazide 12.5 MG capsule 25 mg PO QAM Patient Comments: unknown dose Victoza 2-Jesús 0.6 MG/0.1 ML pen injector 1.8 mg . DAILY AM Hold Instructions: Home Medication placed on hold at Doctor's office aspirin 81 mg Tablet,Chewable 81 mg PO DAILY Patient Comments: Doesnt take regularly like should losartan 25 mg Tablet 25 mg PO DAILY insulin glargine [Lantus Solostar U-100 Insulin] 100 unit/mL (3 mL) Insulin Pen 22 unit SUBCUT HS pseudoephedrine-ibuprofen 30-200 mg Tablet 1 tab PO PRN PRN Excedrin Migraine 250-250-65 mg tablet 1 tab PO ONCE PRN Discharge Instructions Instructions: Poison Sanjuana (ED) Additional Instructions: This appears to be poison Sanjuana or similar contact dermatitis. Use cool compresses 3 times a day, change washcloth in between, use calamine lotion, Also use Aveeno oatmeal bath which you can get over the counter. Follow up with primary care provider in 3-5 days. Return to ED sooner if any worsening or concerns. Referrals: Mirna Vicente [Primary Care Provider] - 5 days Discharge Data Discharge Date/Time-TO BE ENTERED AT DEPARTURE: 09/03/23 21:06 HPI General Mode of arrival: ambulatory . Date/Time Provider Initiated Documentation: 09/03/23 20:10 . Limitations to Documentation: no limitations . Information obtained by: patient, RN notes reviewed and old records reviewed . HPI Narrative: 57 year old male patient noticed rash to abdomen 2 days ago, very pruitic rash, red raised, linear to front of abdomen, no pain. not distributed along dermatomes, no vesicles. No other associated symptoms, has been taking Benadryl with no relief. Patient is talking on phone upon my initial examination. Related Data Home Medications Medication Instructions Recorded Confirmed albuterol sulfate 90 mcg/actuation 2 puff inhalation Q4H PRN PRN #1 07/31/12 09/03/23 aerosol inhaler (ProAir HFA) inh glipizide 10 mg tablet, extended 10 mg PO BID 07/31/12 09/03/23 release 24 hr (Glucotrol XL) hydrochlorothiazide 12.5 mg capsule 25 mg PO QAM 06/07/17 09/03/23 liraglutide 0.6 mg/0.1 mL (18 mg/3 1.8 mg . DAILY AM 06/07/17 09/03/23 mL) subcutaneous pen injector (Victoza 2-Jesús) insulin glargine 100 unit/mL (3 22 unit subcut HS 05/12/20 09/03/23 mL) subcutaneous pen (Lantus Solostar U-100 Insulin) losartan 25 mg tablet 25 mg PO DAILY 05/12/20 09/03/23 cyclobenzaprine 10 mg tablet 10 mg PO HS PRN 07/03/20 09/03/23 loratadine 10 mg tablet 10 mg PO DAILY PRN 07/03/20 09/03/23 metformin 500 mg tablet See Rx Instructions .Route .COMPLEX 07/03/20 09/03/23 (Glucophage) sertraline 100 mg tablet 100 mg PO DAILY 11/11/20 09/03/23 pseudoephedrine-ibuprofen 30 1 tab PO PRN PRN 11/02/21 09/03/23 mg-200 mg tablet aspirin 81 mg chewable tablet 81 mg PO DAILY 02/10/22 09/03/23 omeprazole 40 mg capsule,delayed 40 mg PO DAILY #30 caps 02/16/22 09/03/23 release kgszuui-[id number]-kaaitwja 250 1 tab PO ONCE PRN 06/07/22 09/03/23 mg-250 mg-65 mg tablet (Excedrin Migraine) rosuvastatin 10 mg tablet 10 mg PO DAILY 08/16/22 09/03/23 atogepant 30 mg tablet 30 mg PO DAILY #90 tabs 04/18/23 09/03/23 levetiracetam 1,000 mg tablet 1,000 mg PO Q12H #180 tabs 04/18/23 09/03/23 (Keppra) prednisone 20 mg tablet 60 mg (3 x 20 mg) PO DAILY 5 days 09/03/23 #15 tabs Previous Rx's Medication Instructions Recorded albuterol sulfate 90 mcg/actuation 2 puff inhalation Q4H PRN PRN #1 07/31/12 aerosol inhaler (ProAir HFA) inh omeprazole 40 mg capsule,delayed 40 mg PO DAILY #30 caps 02/16/22 release atogepant 30 mg tablet 30 mg PO DAILY #90 tabs 04/18/23 levetiracetam 1,000 mg tablet 1,000 mg PO Q12H #180 tabs 04/18/23 (Keppra) prednisone 20 mg tablet 60 mg (3 x 20 mg) PO DAILY 5 days 09/03/23 #15 tabs Allergies Allergy/AdvReac Type Severity Reaction Status Date / Time Penicillins Allergy Severe Anaphylaxis Unverified 09/03/23 20:24 codeine [Codeine] Allergy Mild Hives Unverified 09/03/23 20:24 lisinopril Allergy Anaphylaxsi Unverified 09/03/23 20:24 s General Stated Complaint: RashLesion ASHLEY: 3 Review of Systems All systems reviewed & are unremarkable except as noted in HPI and below Integumentary/Breasts Skin/Breast: Reports as per HPI and Reports rash Exam Const General: cooperative, comfortable and disheveled Nutritional Appearance: obese Orientation: alert and oriented x3 Skin Rashes: rashes noted maculopapular rash anterior abdomen size (4cm), arrangement clustered and linear, borders irregular and color red; nontender Trauma: no lacerations or abrasions Wounds: no wounds Hair: normal Full body images: 2 1. Multiple areas of red raised maculopapular rash, in a linear distribution, no vesicles 2. See above 3. Small red raised area 4. Red raised area to abdomen. Course Vital Signs Vital signs: Vital Signs Temperature 36.6 C 09/03/23 20:17 Pulse 63 09/03/23 20:17 Respiratory Rate 15 09/03/23 20:17 Blood Pressure 149/93 H 09/03/23 20:17 Pulse Oximetry 98 09/03/23 20:17 Temperature 36.6 C 09/03/23 20:17 Temperature Source Tympanic 09/03/23 20:17 Pulse 63 09/03/23 20:17 Respiratory Rate 15 09/03/23 20:17 Respiratory Effort Normal 09/03/23 20:19 Blood Pressure 149/93 H 09/03/23 20:17 Blood Pressure Position Sitting 09/03/23 20:17 Pulse Oximetry 98 09/03/23 20:17 Oxygen Delivery Method Room Air 09/03/23 20:17 Oxygen Flow Rate 0 09/03/23 20:17 Medical Decision Making Patient noticed rash to abdomen 2 days ago, very pruitic rash, red raised, linear to front of abdomen, no pain. not distributed along dermatomes, no vesicles. No other associated symptoms, has been taking Benadryl with no relief. Patient presents with a localized pruritic rash that is non-painful most consistent with poison sanjuana dermatitis. Differential diagnoses include shingles however there is does not have the clinical appearance of such, irritant contact dermatitis, viral exanthem, impetigo or other rash. Patient will be discharged with instructions to apply cool compresses, calamine lotion and oatmeal baths. Will give prednisone for rash to face. Discussed return instructions. Instructed to follow-up with PCP for any worsening fever, signs of infection or concerns. This text was generated using Therabiolation system, please disregard any oddities of phrase or misspellings. Quality:SDOH Health Related Social Needs: 2 No Data to Display PFSH All Active Problems (Updated 09/03/23 @ 20:28 by Jazmyn Beard NP) Contact dermatitis due to poison sanjuana (Acute) Esophagitis (Acute) Gastritis (Acute) Erosive gastritis (Acute) Fine's esophagus determined by biopsy (Acute) Spell of altered cognition (Acute) Irregular heart beat (Acute) Chronic headache (Acute) Medication overuse headache (Acute) Migraine headache without aura (Acute) Seizure-like activity (Acute) Laceration of head (Acute) Depression (Chronic) Insurance coverage problems (Acute) Problems related to other legal circumstances (Acute) Problems in relationship with spouse or partner (Acute) Hematemesis (Acute) Pharyngoesophageal dysphagia (Acute) Thyroid nodule (Acute) Medical History Hemoptysis Multinodular thyroid Personal history of fall Edema Grief reaction Frequent PVCs Transient neurological symptoms Seizure-like activity pt. states mild shaking lasting a minute 01/29/22 Other problems related to social environment Marital problem Suicidal ideation Adjustment disorder Abdominal pain, LLQ Thyroid mass Lanza angioma Hypertension Sleep apnea Pituitary adenoma COPD (chronic obstructive pulmonary disease) Tobacco abuse Type 2 diabetes mellitus Amputation of lower limb Seasonal allergies Phimosis Headache Erectile dysfunction Kidney stones Asthma Morbid obesity Diabetes Surgical History History of esophagogastroduodenoscopy (EGD) (~01/2022) Hx of foot surgery left r/t logging accident; hardware present History of knee surgery Family History Other Diabetes Social History Smoking/Tobacco Use Status: Current every day Tobacco Type: smokeless tobacco Tobacco: How many years used: 43 Smokeless tobacco user: chewing tobacco and snuff Smoking risk assessment performed?: Yes Alcohol Intake: current Alcohol Intake frequency: holidays/special occasions only Drug use: Occasionally Substance use type: marijuana Details: 1-2 week Household members: children Number of Children: 4 Education Level: high school 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 Do you feel safe at home: Yes Do you feel safe in your relationship?: Yes PAWSS Have you Been Recently Intoxicated or Drunk Within the Last 30 days?: No Have you Ever Experienced Previous Episodes of Alcohol Withdrawal?: No Have you ever Experienced Withdrawal Seizures?: No Have you ever Experienced Delirium Tremens(DT)s?: No Have you ever undergone Alcohol Rehabilitation Treatment (i.e, inpt ot outpatient treatment programs)?: No Have you ever Experienced Blackouts?: No Have you ever Combined Alcohol with other Downers within the last 90 days?: No Have you ever Combined Alcohol with any other Substance of Abuse during the last 90 days?: No Positive Blood Alcohol level on Presentation? [PCS.BAL]: No Evidence of Increased Autonomic Activity (i.e. HR>120, tremor, sweating, agitation, nausea)?: No Result: 0
[2023-09-03 21:06] VITALS: BP 149/93; PULSE 63; RESP 15; TEMP 36.6; O2SAT 98
[2023-09-03] MEDS: predniSONE 20 MG TAB 60 MG PO (21:07)
== END 2023-09-03 21:06 | disposition home or self-care (01) ==
LOC: ER 21:08
PROVIDERS: Emergency Provider Registered Nurse Emergency; PCP Nurse Practitioner Family
DX: L23.7 Allergic contact dermatitis due to plants, except food (principal)
CPT/HCPCS: 99283; J7512

== ENCOUNTER → 2023-09-09 00:39 | Outpatient (CLI) | payer MEDICAID, SELFPAY ==
--- NOTE | 2023-09-09 08:15 | DI.MRI_ITS ---
Exam(s) MR BRAIN PITUITARY WO/W EXAM: MR BRAIN PITUITARY WO/W CLINICAL HISTORY: pituitary adenoma vs cyst,D35.2 TECHNIQUE: Multiplanar multisequence MRI of the brain and pituitary gland was performed. CONTRAST MATERIAL: IV Contrast: 20 mL of Dotarem contrast administered. COMPARISON: MR MR BRAIN PITUITARY WO/W from 06/16/2020 MR MR BRAIN PITUITARY WO from 09/10/2022 Findings: VENTRICLES AND EXTRA AXIAL SPACES: Normal in size and morphology for the patient's age. HEMORRHAGE: None. CEREBRAL PARENCHYMA: No focus of restricted diffusion to suggest acute infarct. No space-occupying le shanti identified. MIDLINE SHIFT: None. BRAINSTEM/CEREBELLUM: Normal. CALVARIUM: Normal. ENHANCEMENT: No suspicious enhancement identified. VISUALIZED PARANASAL SINUSES/MASTOIDS: Clear. OTHER FINDINGS: None. PITUITARY: Pituitary stalk is midline. High-density T1 material is again noted in the pituitary. No change in appearance from prior. There is no visible mass. The optic chiasm is unremarkable. The cavernous portions of both carotid arteries are unremarkable. Impression: No evidence of recurrence pituitary adenoma. DATA REPOSITORY:
[2023-09-09] MEDS: Normal Saline Flush 10 ML SYR IJ (14:24)
[2023-09-09] MEDS: Gadoterate meglumine 20 ML SYRINGE IVP (14:25)
== END ==
PROVIDERS: PCP Nurse Practitioner Family; Visit Provider Psychiatry & Neurology Neurology
DX: D35.2 Benign neoplasm of pituitary gland (principal)
CPT/HCPCS: 70553

== ENCOUNTER 2023-11-25 14:48 | Outpatient (REF) | payer MEDICAID, SELFPAY ==
[2023-11-25 16:00] LABS: COMMENT (LAB VIEW ONLY) 135.03 mg/dL; Microalb ug/mg Crea 57.6 ug/mg Cr
== END 2023-11-25 14:49 | disposition home or self-care (01) ==
LOC: NCHCN 14:48
PROVIDERS: PCP Nurse Practitioner Family; Visit Provider Nurse Practitioner Family
DX: E11.9 Type 2 diabetes mellitus without complications (principal)
CPT/HCPCS: 82043; 82570

== ENCOUNTER 2024-05-10 02:50 | Outpatient (CLI) | payer MEDICARE, MEDICAID, SELFPAY ==
--- NOTE | 2024-05-10 07:45 | DI.US_ITS ---
Exam(s) US THYROID EXAM: US THYROID CLINICAL HISTORY: Assess for change, biopsy benign,multinodular goiter,E04.2. TECHNIQUE: Ultrasound thyroid performed using standard protocol. COMPARISON: US US THYROID from 02/21/2023 FINDINGS: ISTHMUS: 4.5 mm RIGHT LOBE: Size: 6.4 x 3.1 x 2.9 cm Echogenicity: Normal. Vascularity: Normal. Nodules: There are multiple nodule seen in the right lobe of the thyroid gland. There is again seen a solid nodule in the right lobe measuring 2.2 x 2.1 x 2.1 cm. It has a macrocalcification. It is a TI rads level 4 nodule. This nodule previously underwent biopsy. There are no other nodule seen on the right to warrant follow-up or biopsy. LEFT LOBE: Size: 6.4 x 2.8 x 2.2 cm Echogenicity: Normal. Vascularity: Normal. Nodules: There again seen left thyroid nodules. There are no new nodules on the left warrant biopsy or follow-up. OTHER FINDINGS: None. IMPRESSION: Right thyroid nodule shows slight increase in size measuring 2.2 x 2.1 x 2.1 cm. This compares to 1. 5 x 1.8 x 2.1 cm. This nodule has been previously biopsied. DATA REPOSITORY:
== END 2024-05-10 03:10 ==
LOC: DI 02:50
PROVIDERS: PCP Nurse Practitioner Family; Visit Provider Otolaryngology
DX: E04.2 Nontoxic multinodular goiter (principal)
CPT/HCPCS: 76536

== ENCOUNTER 2024-05-13 13:28 | Emergency (ER) | payer MEDICARE, MEDICAID, SELFPAY ==
[2024-05-13 13:43] VITALS: BP 157/86; PULSE 81; RESP 16; TEMP 36.9; O2SAT 98
--- NOTE | 2024-05-13 13:45 | DI.RAD_ITS ---
Exam(s) XR KNEE RT 3V AP,LAT,MELISSA EXAM: XR KNEE RT 3V AP,LAT,MELISSA CLINICAL HISTORY: fall, pain. TECHNIQUE: 2D digital imaging was performed of the right knee. Three views obtained. AP, lateral an d PA tunnel views were obtained. COMPARISON: CR XR KNEE RT 2V AP,LAT from 02/26/2021 FINDINGS: BONES: No acute fracture is present. No bony destructive lesion is seen. There is stable postsurgical changes in the knee. JOINTS: Marked osteoarthritis of the right knee is noted involving all 3 joint compartments. There i s again seen a large loose body in the anterior joint. There is a small joint effusion. SOFT TISSUE: Normal. IMPRESSION: No acute fracture or dislocation is present. DATA REPOSITORY: RADIATION DOSE DELIVERED:
--- NOTE | 2024-05-13 13:56 | W.ED.GENAD ---
Discharge Plan Disposition Patient Disposition: Home Condition: Stable Discharge Details Clinical Impression: Contusion of knee, right Primary Care Provider: Mirna Vicente ED Provider: Ari Butts Home Meds and New Rx's Prescriptions: Continued sertraline 100 mg tablet 100 mg PO DAILY omeprazole 40 mg capsule,delayed release(DR/EC) 40 mg PO DAILY Qty: 30 5RF rosuvastatin 10 mg tablet 10 mg PO DAILY levetiracetam [Keppra] 1,000 mg tablet 1,000 mg PO Q12H Qty: 180 3RF Qulipta 10 mg tablet 10 mg PO DAILY metformin [Glucophage] 500 mg tablet See Rx Instructions .ROUTE .COMPLEX Rx Instructions: 3 tabs am and 2 tabs HS cyclobenzaprine 10 mg tablet 10 mg PO HS PRN loratadine 10 mg tablet 10 mg PO DAILY PRN atogepant 30 mg tablet 30 mg PO DAILY Qty: 90 3RF glipizide [Glucotrol XL] 10 MG tablet extended release 24hr 10 mg PO BID albuterol sulfate [ProAir HFA] 1 PUFF HFA aerosol inhaler 2 puff Inhalation Q4H PRN PRNQty: 1 0RF Patient Comments: not using lately hydrochlorothiazide 12.5 MG capsule 25 mg PO QAM Patient Comments: unknown dose liraglutide [Victoza 2-Jesús] 0.6 MG/0.1 ML pen injector 1.8 mg . DAILY AM aspirin 81 mg Tablet,Chewable 81 mg PO DAILY Patient Comments: Doesnt take regularly like should losartan 25 mg Tablet 25 mg PO DAILY insulin glargine [Lantus Solostar U-100 Insulin] 100 unit/mL (3 mL) Insulin Pen 22 unit SUBCUT HS pseudoephedrine-ibuprofen 30-200 mg Tablet 1 tab PO PRN PRN Excedrin Migraine 250-250-65 mg tablet 1 tab PO ONCE PRN Discharge Instructions Additional Instructions: Your x-ray did not show any fractures or broken bones Follow-up with your primary care provider if not improving in a week If you feel more ill, have severe worsening pain or new pain such as severe abdominal pain return to the emergency department for reevaluation HPI General Date/Time Provider Initiated Documentation: 05/13/24 13:45. Limitations to Documentation: no limitations. Information obtained by: patient. History of Present Illness 58 year old M presents to the emergency department with the chief complaint of right knee pain, described as moderate, Quality is described as aching, and is localized to the right and lower extremity. Patient reports no radiation. Patient started experiencing this hour(s) (6) and it has been constant. Rest improves symptom(s), Movement worsens symptoms . Patient notes no other symptoms.. Patient did receive the following treatments prior to arrival, none Related Data Home Medications ?Medication ?Instructions ?Recorded ?Confirmed albuterol sulfate 90 mcg/actuation 2 puff inhalation Q4H PRN PRN #1 07/31/12 05/13/24 aerosol inhaler (ProAir HFA) inh glipizide 10 mg tablet, extended 10 mg PO BID 07/31/12 05/13/24 release 24 hr (Glucotrol XL) hydrochlorothiazide 12.5 mg capsule 25 mg PO QAM 06/07/17 05/13/24 liraglutide 0.6 mg/0.1 mL (18 mg/3 1.8 mg . DAILY AM 06/07/17 05/13/24 mL) subcutaneous pen injector (Victoza 2-Jesús) insulin glargine 100 unit/mL (3 22 unit subcut HS 05/12/20 05/13/24 mL) subcutaneous pen (Lantus Solostar U-100 Insulin) losartan 25 mg tablet 25 mg PO DAILY 05/12/20 05/13/24 cyclobenzaprine 10 mg tablet 10 mg PO HS PRN 07/03/20 05/13/24 loratadine 10 mg tablet 10 mg PO DAILY PRN 07/03/20 05/13/24 metformin 500 mg tablet See Rx Instructions .Route .COMPLEX 07/03/20 05/13/24 (Glucophage) sertraline 100 mg tablet 100 mg PO DAILY 11/11/20 05/13/24 pseudoephedrine-ibuprofen 30 1 tab PO PRN PRN 11/02/21 05/13/24 mg-200 mg tablet aspirin 81 mg chewable tablet 81 mg PO DAILY 02/10/22 05/13/24 omeprazole 40 mg capsule,delayed 40 mg PO DAILY #30 caps 02/16/22 05/13/24 release msizyse-mkoetdaepfzjy-fhlrgpdm 250 1 tab PO ONCE PRN 06/07/22 05/13/24 mg-250 mg-65 mg tablet (Excedrin Migraine) rosuvastatin 10 mg tablet 10 mg PO DAILY 08/16/22 05/13/24 levetiracetam 1,000 mg tablet 1,000 mg PO Q12H #180 tabs 04/18/23 05/13/24 (Keppra) atogepant 30 mg tablet 30 mg PO DAILY #90 tabs 03/26/24 05/13/24 atogepant 10 mg tablet (Qulipta) 10 mg PO DAILY 05/10/24 05/13/24 Previous Rx's ?Medication ?Instructions ?Recorded albuterol sulfate 90 mcg/actuation 2 puff inhalation Q4H PRN PRN #1 07/31/12 aerosol inhaler (ProAir HFA) inh omeprazole 40 mg capsule,delayed 40 mg PO DAILY #30 caps 02/16/22 release levetiracetam 1,000 mg tablet 1,000 mg PO Q12H #180 tabs 04/18/23 (Keppra) atogepant 30 mg tablet 30 mg PO DAILY #90 tabs 03/26/24 Allergies Allergy/AdvReac Type Severity Reaction Status Date / Time Penicillins Allergy Severe Anaphylaxis Unverified 05/13/24 13:44 codeine (Codeine) Allergy Mild Hives Unverified 05/13/24 13:44 lisinopril Allergy Anaphylaxsi Unverified 05/13/24 13:44 s General Stated Complaint: Orthopedic ASHLEY: 4 Review of Systems All systems reviewed & are unremarkable except as noted in HPI and below Constitutional Constitutional: Denies chills, Denies fever(s) and Denies weakness Cardiovascular Cardiovascular: Denies chest pain and Denies dyspnea Respiratory Respiratory: Denies cough and Denies dyspnea Gastrointestinal Gastrointestinal: Denies abdominal pain, Denies nausea and Denies vomiting Neurologic Neurologic: Denies weakness Exam Const General: no acute distress Orientation: alert [facility] Head: normal to inspection Ears: external ears normal General nose exam: external nose normal Mouth: moist mucous membranes Eyes General: appearance normal, both eyes and all related structures Neck Neck: normal visual inspection Resp Effort & Inspection: normal respiratory effort and able to speak in complete sentences Cardio Rate: regular rate Skin General skin exam: no rashes or lesions noted Neuro General: patient alert and patient oriented x3 Extrem General: full ROM and capillary refill normal Psych Mental Status: mental status grossly normal Course Vital Signs Vital signs: Vital Signs Temperature 36.9 C 05/13/24 13:43 Pulse 81 05/13/24 13:43 Respiratory Rate 16 05/13/24 13:43 Blood Pressure 157/86 H 05/13/24 13:43 Pulse Oximetry 98 05/13/24 13:43 Temperature 36.9 C 05/13/24 13:43 Pulse 81 05/13/24 13:43 Respiratory Rate 16 05/13/24 13:43 Blood Pressure 157/86 H 05/13/24 13:43 Pulse Oximetry 98 05/13/24 13:43 Pain Level 8 05/13/24 13:43 Medical Decision Making 58-year-old male comes in with a right knee injury. He says he was snowblowing earlier this morning when he slipped in his anterior knee at the ground. He did not hit his head or sustain other injuries. He has pain over the anterior knee over the patella. There is swelling of the knee. He is able to fully range his knee though it does hurt when he does movement. He has no tenderness elsewhere in the leg and intact distal sensation and pulses. I suspect contusion versus fracture versus ligamentous versus meniscus injury. Will obtain x-rays and reassess. X-ray on my read and radiology read shows no acute findings. Patient is stable and is able to bear weight. Will provide him a knee brace and he declined crutches. He will follow-up with his PCP in improving and return precautions given Differential Diagnosis Differential Diagnosis: Fracture, contusion, strain Quality:SDOH Health Related Social Needs: Health related social needs feeling lonely/isolated (Z60.8) [facility] All Active Problems (Updated 05/13/24 @ 15:22 by Ari Butts MD) Contusion of knee, right (Acute) Esophagitis (Acute) Gastritis (Acute) Erosive gastritis (Acute) Fine's esophagus determined by biopsy (Acute) Spell of altered cognition (Acute) Irregular heart beat (Acute) Chronic headache (Acute) Medication overuse headache (Acute) Migraine headache without aura (Acute) Seizure-like activity (Acute) Laceration of head (Acute) Depression (Chronic) Insurance coverage problems (Acute) Problems related to other legal circumstances (Acute) Problems in relationship with spouse or partner (Acute) Hematemesis (Acute) Pharyngoesophageal dysphagia (Acute) Thyroid nodule (Acute) Medical History Hemoptysis Multinodular thyroid Personal history of fall Edema Grief reaction Frequent PVCs Transient neurological symptoms Seizure-like activity pt. states mild shaking lasting a minute 01/29/22 Other problems related to social environment Marital problem Suicidal ideation Adjustment disorder Abdominal pain, LLQ Thyroid mass Lanza angioma Hypertension Sleep apnea Pituitary adenoma COPD (chronic obstructive pulmonary disease) Tobacco abuse Type 2 diabetes mellitus Amputation of lower limb Seasonal allergies Phimosis Headache Erectile dysfunction Kidney stones Asthma Morbid obesity Diabetes Surgical History History of esophagogastroduodenoscopy (EGD) (~01/2022) Hx of foot surgery left r/t logging accident; hardware present History of knee surgery Family History Other Diabetes Social History Smoking/Tobacco Use Status: Current every day Tobacco Type: smokeless tobacco Tobacco: How many years used: 43 Smokeless tobacco user: chewing tobacco and snuff Smoking risk assessment performed?: Yes Alcohol Intake: current Alcohol Intake frequency: holidays/special occasions only Drug use: Occasionally Substance use type: marijuana Details: 1-2 week Household members: children Number of Children: 4 Education Level: high school 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
--- NOTE | 2024-05-28 09:46 | NUR.NOTE ---
Access chart to send provider note and DI report to [facility] at their request for billing purposes. Nursing Note:
== END 2024-05-13 15:42 | disposition home or self-care (01) ==
PROVIDERS: Emergency Provider Emergency Medicine; PCP Nurse Practitioner Family
DX: S80.01XA Contusion of right knee, initial encounter (principal); M25.461 Effusion, right knee; M23.41 Loose body in knee, right knee; I10 Essential (primary) hypertension; E11.9 Type 2 diabetes mellitus without complications; J44.9 Chronic obstructive pulmonary disease, unspecified; F17.290 Nicotine dependence, other tobacco product, uncomplicated; Z79.4 Long term (current) use of insulin; Z79.84 Long term (current) use of oral hypoglycemic drugs; Z79.85 Long-term (current) use of injectable non-insulin antidiabetic drugs; Z79.82 Long term (current) use of aspirin; W00.0XXA Fall on same level due to ice and snow, initial encounter; Y93.H1 Activity, digging, shoveling and raking; Y92.014 Private driveway to single-family (private) house as the place of occurrence of the external cause
CPT/HCPCS: 73562; 99283

== ENCOUNTER → 2024-05-22 14:51 | Outpatient (BNVA) | payer MEDICARE, MEDICAID, SELFPAY | PROVIDERS: PCP Nurse Practitioner Family; Referring Provider Nurse Practitioner Family; Visit Provider Psychiatry & Neurology Neurology | DX: R41.89 Other symptoms and signs involving cognitive functions and awareness (principal); I49.9 Cardiac arrhythmia, unspecified; G89.29 Other chronic pain; G43.009 Migraine without aura, not intractable, without status migrainosus; D35.2 Benign neoplasm of pituitary gland | CPT/HCPCS: 99214 ==

== ENCOUNTER 2024-06-04 14:20 | Outpatient (REF) | payer MEDICARE, MEDICAID, SELFPAY ==
[2024-06-04 16:02] LABS: Hemoglobin A1C 5.9 % (<5.7)
[2024-06-04 16:49] LABS: ALT 31 U/L (16-63); AST 34 U/L (15-37); Alkaline Phosphatase 94 U/L (46-116); Anion Gap 8.4 mmol/L (3-11); BUN 11 mg/dL (7-18); Bilirubin, Total 0.56 mg/dL (0.2-1.0); CO2 29.6 mmol/L (21.0-32.0); CREATININE 0.9 mg/dL (0.70-1.30); Calcium 9.4 mg/dL (8.5-10.1); Chloride 106 mmol/L (98-107); Estimated GFR 99.62 (mL/min/1.73m2); Glucose 69 mg/dL (74-106); Potassium 4.8 mmol/L (3.5-5.1); Sodium 144 mmol/L (136-145); Total Protein 7.6 g/dL (6.4-8.2); Vitamin B12 320 pg/mL (193-986)
[2024-06-04 16:59] LABS: COMMENT (LAB VIEW ONLY) 41.52 mg/dL
[2024-06-04 17:01] LABS: Microalb ug/mg Crea 100.2 ug/mg Cr
== END 2024-06-04 14:21 | disposition home or self-care (01) ==
LOC: NCHCN 14:20
PROVIDERS: PCP Nurse Practitioner Family; Visit Provider Nurse Practitioner Family
DX: E11.9 Type 2 diabetes mellitus without complications (principal)
CPT/HCPCS: 80053; 82043; 82570; 82607; 83036

== ENCOUNTER → 2024-07-10 10:04 | Outpatient (BNVA) | payer MEDICARE, MEDICAID, SELFPAY | PROVIDERS: PCP Nurse Practitioner Family; Referring Provider Nurse Practitioner Family; Visit Provider Nurse Practitioner Adult Health | DX: G56.03 Carpal tunnel syndrome, bilateral upper limbs (principal) | CPT/HCPCS: 95909; 99214 ==

== ENCOUNTER → 2024-09-20 11:21 | Outpatient (BNVA) | payer MEDICARE, MEDICAID, SELFPAY | PROVIDERS: PCP Nurse Practitioner Family; Referring Provider Nurse Practitioner Family; Visit Provider Psychiatry & Neurology Neurology | DX: R41.89 Other symptoms and signs involving cognitive functions and awareness (principal); G44.40 Drug-induced headache, not elsewhere classified, not intractable; G43.009 Migraine without aura, not intractable, without status migrainosus; G89.29 Other chronic pain; I10 Essential (primary) hypertension; E11.9 Type 2 diabetes mellitus without complications; J45.909 Unspecified asthma, uncomplicated | CPT/HCPCS: 99214 ==

== ENCOUNTER 2024-09-20 18:18 | Outpatient (REF) | payer MEDICARE, MEDICAID, SELFPAY ==
[2024-09-20 21:23] LABS: COMMENT (LAB VIEW ONLY) 173.53 mg/dL; Microalb ug/mg Crea 45.9 ug/mg Cr
== END 2024-09-20 18:19 | disposition home or self-care (01) ==
LOC: NCHCN 18:18
PROVIDERS: PCP Nurse Practitioner Family; Visit Provider Nurse Practitioner Family
DX: E11.9 Type 2 diabetes mellitus without complications (principal)
CPT/HCPCS: 82043; 82570

== ENCOUNTER → 2024-10-04 12:56 | Outpatient (BNVA) | payer MEDICARE, MEDICAID, SELFPAY | PROVIDERS: PCP Nurse Practitioner Family; Referring Provider Nurse Practitioner Family; Visit Provider Student in an Organized Health Care Education/Training Program | DX: G56.03 Carpal tunnel syndrome, bilateral upper limbs (principal) | CPT/HCPCS: 99213 ==

== ENCOUNTER → 2025-03-21 11:24 | Outpatient (BNVA) | payer MEDICARE, MEDICAID, SELFPAY | PROVIDERS: PCP Nurse Practitioner Family; Referring Provider Nurse Practitioner Family; Visit Provider Psychiatry & Neurology Neurology | DX: R41.89 Other symptoms and signs involving cognitive functions and awareness (principal); G44.40 Drug-induced headache, not elsewhere classified, not intractable; G43.009 Migraine without aura, not intractable, without status migrainosus; R56.9 Unspecified convulsions; E11.59 Type 2 diabetes mellitus with other circulatory complications; I10 Essential (primary) hypertension | CPT/HCPCS: 99214 ==

== ENCOUNTER 2025-04-11 11:57 | Emergency (ER) | payer MEDICARE, MEDICAID, SELFPAY ==
[2025-04-11 12:05] VITALS: BP 143/84; PULSE 62; RESP 18; TEMP 36.4; O2SAT 96
--- NOTE | 2025-04-11 12:15 | DI.RAD_ITS ---
Exam(s) XR HAND RT COMPLETE EXAM: XR HAND RT COMPLETE CLINICAL HISTORY: fall, 5th metacarpal pain. TECHNIQUE: 2D digital imaging was performed. Three views. COMPARISON: No exams were available for comparison FINDINGS: BONES: There is a nondisplaced fracture through the 5th metacarpal head. The fracture does not extend to the articular surface. No additional fractures are identified. No bony destructive lesion is seen. JOINTS: No dislocation present. SOFT TISSUE: Normal. IMPRESSION: Nondisplaced fracture of the 5th metacarpal head. DATA REPOSITORY: RADIATION DOSE DELIVERED:
--- NOTE | 2025-04-11 12:25 | W.ED.GENAD ---
Discharge Plan Disposition Patient Disposition: Home Condition: Stable Discharge Details Clinical Impression: Fracture of fifth metacarpal bone of right hand Primary Care Provider: Mirna Vicente ED Provider: Pippa Cheatham Home Meds and New Rx's Prescriptions: No Action Ozempic 0.25 mg or 0.5 mg (2 mg/3 mL) pen injector 0.25 mg subcut QWEEK Rx Instructions: for 4 weeks Qulipta 60 mg tablet 60 mg PO DAILY Qty: 90 3RF levetiracetam [Keppra] 1,000 mg tablet 1,000 mg PO Q12H Qty: 180 3RF sertraline 100 mg tablet 100 mg PO DAILY omeprazole 40 mg capsule,delayed release(DR/EC) 40 mg PO DAILY Qty: 30 5RF rosuvastatin 10 mg tablet 10 mg PO DAILY metformin [Glucophage] 500 mg tablet See Rx Instructions .ROUTE .COMPLEX Rx Instructions: 3 tabs am and 2 tabs HS cyclobenzaprine 10 mg tablet 10 mg PO HS PRN loratadine 10 mg tablet 10 mg PO DAILY PRN glipizide [Glucotrol XL] 10 MG tablet extended release 24hr 10 mg PO BID albuterol sulfate [ProAir HFA] 1 PUFF HFA aerosol inhaler 2 puff Inhalation Q4H PRN PRNQty: 1 0RF Patient Comments: not using lately hydrochlorothiazide 12.5 MG capsule 25 mg PO QAM Patient Comments: unknown dose aspirin 81 mg Tablet,Chewable 81 mg PO DAILY Patient Comments: Doesnt take regularly like should losartan 25 mg Tablet 25 mg PO DAILY insulin glargine [Lantus Solostar U-100 Insulin] 100 unit/mL (3 mL) Insulin Pen 22 unit SUBCUT HS pseudoephedrine-ibuprofen 30-200 mg Tablet 1 tab PO PRN PRN kojoqkc-ahiundndrerrf-htvbisnb [Excedrin Migraine] 250-250-65 mg tablet 1 tab PO ONCE PRN Discharge Instructions Instructions: Hand Fracture ED Additional Instructions: You were seen in the emergency department today for evaluation of a hand injury sustained after tripping over your dog. In our department a full physical examination performed, and had an x-ray that showed a fracture of your fifth metacarpal head, one of the bones in the pinky side of your hand. This fracture is not displaced, you were placed in a splint, and need to follow-up with orthopedics in the next few days to discuss this visit and have your splint transitioned to a less bulky support device. Please use therapeutic dosing of Tylenol (acetaminophen) & Advil (ibuprofen) in an alternating fashion as follows: Take 1000mg of Tylenol every 6 hours without missing doses- that is 4 times per day. Mather in between the Tylenol doses, take 600mg of Advil also on a 6 hour schedule, that is also 4 times per day. With this strategy, you will be taking something for fever/pain as often as every 3 hours. The daily maximum dosing of Tylenol is 4000mg, and the daily maximum dosing of Advil is 2400mg. Please note that some common cold medications & prescription pain medications may contain acetaminophen and you need to read OTC drug labels and factor that in to maximum daily doses. Please do not bear excessive weight on your right hand until you are cleared to do so by orthopedics. Please follow-up with your primary care provider in the next few days to discuss this visit and any symptoms that change, worsen, or persist. Thank you for allowing us to be part of your care. Stand Alone Forms: Portal Information Referrals: Miguel Venegas MD [ [facility] STAFF PHYSICIAN, Orthopaedic Surgical] - 1 week Discharge Data Discharge Date/Time-TO BE ENTERED AT DEPARTURE: 04/11/25 14:44 HPI General Mode of arrival: ambulatory. Date/Time Provider Initiated Documentation: 04/11/25 12:11. Limitations to Documentation: no limitations. Information obtained by: patient, family and old records reviewed. HPI Narrative: This is a 59-year-old male patient with a history of carpal tunnel, gastritis and Fine's esophagus, depression, presenting for evaluation of a right hand injury. The patient is left-hand dominant, states that last night he was playing with his dog, and then went to get up and the dog thought he was still playing, ran through his legs and tripped him, and he fell on an outstretched hand. He reports that he had immediate pain in the area of the fifth MCP, was initially quite swollen. He took a Flexeril without significant improvement in his pain, presents today for evaluation as it is still hurting him. He did not hurt any other part of his body during this event, and has otherwise been in his normal state of health. Related Data Home Medications ?Medication ?Instructions ?Recorded ?Confirmed albuterol sulfate 90 mcg/actuation 2 puff inhalation Q4H PRN PRN #1 07/31/12 03/21/25 aerosol inhaler (ProAir HFA) inh glipizide 10 mg tablet, extended 10 mg PO BID 07/31/12 03/21/25 release 24 hr (Glucotrol XL) hydrochlorothiazide 12.5 mg capsule 25 mg PO QAM 06/07/17 03/21/25 insulin glargine 100 unit/mL (3 22 unit subcut HS 05/12/20 03/21/25 mL) subcutaneous pen (Lantus Solostar U-100 Insulin) losartan 25 mg tablet 25 mg PO DAILY 05/12/20 03/21/25 cyclobenzaprine 10 mg tablet 10 mg PO HS PRN 07/03/20 03/21/25 loratadine 10 mg tablet 10 mg PO DAILY PRN 07/03/20 03/21/25 metformin 500 mg tablet See Rx Instructions .Route .COMPLEX 07/03/20 03/21/25 (Glucophage) sertraline 100 mg tablet 100 mg PO DAILY 11/11/20 03/21/25 pseudoephedrine-ibuprofen 30 1 tab PO PRN PRN 11/02/21 03/21/25 mg-200 mg tablet aspirin 81 mg chewable tablet 81 mg PO DAILY 02/10/22 03/21/25 omeprazole 40 mg capsule,delayed 40 mg PO DAILY #30 caps 02/16/22 03/21/25 release tvrybxo-rnqnpqilegwlp-klgtuixu 250 1 tab PO ONCE PRN 06/07/22 03/21/25 mg-250 mg-65 mg tablet (Excedrin Migraine) rosuvastatin 10 mg tablet 10 mg PO DAILY 08/16/22 03/21/25 semaglutide 0.25 mg or 0.5 mg (2 0.25 mg subcut QWEEK 10/04/24 03/21/25 mg/3 mL) subcutaneous pen injector (Ozempic) atogepant 60 mg tablet (Qulipta) 60 mg PO DAILY #90 tabs 03/21/25 03/21/25 levetiracetam 1,000 mg tablet 1,000 mg PO Q12H #180 tabs 03/21/25 03/21/25 (Keppra) Previous Rx's ?Medication ?Instructions ?Recorded albuterol sulfate 90 mcg/actuation 2 puff inhalation Q4H PRN PRN #1 07/31/12 aerosol inhaler (ProAir HFA) inh omeprazole 40 mg capsule,delayed 40 mg PO DAILY #30 caps 02/16/22 release atogepant 60 mg tablet (Qulipta) 60 mg PO DAILY #90 tabs 03/21/25 levetiracetam 1,000 mg tablet 1,000 mg PO Q12H #180 tabs 03/21/25 (Keppra) Allergies Allergy/AdvReac Type Severity Reaction Status Date / Time Penicillins Allergy Severe Anaphylaxis Unverified 04/11/25 12:07 codeine (Codeine) Allergy Mild Hives Unverified 04/11/25 12:07 lisinopril Allergy Anaphylaxsi Unverified 04/11/25 12:07 s General Stated Complaint: Orthopedic ASHLEY: 4 Exam Narrative Exam Narrative: Gen: Awake and alert, in no apparent distress HEENT: Non-icteric sclera Neck: Supple Lungs: No apparent respiratory distress, normal respiratory effort. CV: Appears well perfused, strong distal pulses Abdomen: Non-distended MSK: Moves 4 extremities without apparent limitation in ROM, with the exception of the right pinky, which is painful with range of motion in both the extension and flexion directions. He has some tenderness to palpation over the area of the fifth metacarpal, and MCP joint. No skin breaks, no gross deformity, no anatomical snuffbox tenderness, nor involvement of the right sided wrist, forearm, or elbow. Brisk capillary refill distal to the injury, preserved sensation. Skin: Visualized skin without rashes, cyanosis. Neuro: Normal Gait, no obvious focal deficits or facial asymmetry. Speaks in full, clear sentences. Psych: Appropriate for situation. Course Vital Signs Vital signs: Vital Signs Temperature 36.4 C L 04/11/25 12:05 Pulse 62 04/11/25 12:05 Respiratory Rate 18 04/11/25 12:05 Blood Pressure 143/84 H 04/11/25 12:05 Pulse Oximetry 96 04/11/25 12:05 Temperature 36.4 C L 04/11/25 12:05 Temperature Source Oral 04/11/25 12:05 Pulse 62 04/11/25 12:05 Respiratory Rate 18 12/11/25 12:05 Blood Pressure 143/84 H 04/11/25 12:05 Blood Pressure Position Sitting 04/11/25 12:05 Pulse Oximetry 96 04/11/25 12:05 Oxygen Delivery Method Room Air 04/11/25 12:05 Oxygen Flow Rate 0 04/11/25 12:05 Pain Level 5 04/11/25 12:05 Procedure Orthopedic Splinting/Casting Date of Procedure: 04/11/25 Time of procedure: 14:00 Provider that performed the procedure: Pippa Cheatham Patient Consented: Verbally Side: right Upper Extremity Injury Location: hand Upper Extremity Immobilizer: ulnar gutter Weight bearing status: non-weight bearing as tolerated Procedure Description/Note: After fracture was identified the patient was placed in an ulnar gutter splint with MCPs in approximately 70 degrees of flexion, and the wrist in extension, using 4 inch Ortho-Glass, stockinette and fluff, and Adriano wrap. CSM's intact before and after this procedure, the patient tolerated the procedure well without immediate adverse effect. Medical Decision Making This is a 59-year-old male patient presenting for evaluation of a hand injury. Differential includes but is not limited to fracture, dislocation, sprain/strain, contusion. I have a low concern for neurovascular injury, no evidence for infection on my physical examination. We obtained an x-ray and provided the patient with Tylenol and ibuprofen. The x-ray does show a nondisplaced fifth metacarpal head fracture, for which I placed the patient in an ulnar gutter splint. He tolerated this procedure well and was neuro intact before and after. A referral to orthopedics was placed and he was counseled on conservative pain management, and ice and elevation for swelling. At this time, the patient has had a full medical evaluation and is safe for discharge to home. They are hemodynamically stable, ambulatory, and tolerating PO. They are understanding of the follow-up plan and return precautions. They left our facility without incident. Pippa Cheatham MD Quality:SDOH Health Related Social Needs: Health related social needs lonely/isolated PFSH All Active Problems (Updated 04/11/25 @ 14:34 by Pippa Cheatham MD) Fracture of fifth metacarpal bone of right hand (Acute) Ulnar neuropathy of left upper extremity (Acute) Bilateral carpal tunnel syndrome (Acute) Esophagitis (Acute) Gastritis (Acute) Erosive gastritis (Acute) Fine's esophagus determined by biopsy (Acute) Spell of altered cognition (Acute) Irregular heart beat (Acute) Chronic headache (Acute) Medication overuse headache (Acute) Migraine headache without aura (Acute) Seizure-like activity (Acute) Laceration of head (Acute) Depression (Chronic) Insurance coverage problems (Acute) Problems related to other legal circumstances (Acute) Problems in relationship with spouse or partner (Acute) Hematemesis (Acute) Pharyngoesophageal dysphagia (Acute) Thyroid nodule (Acute) Medical History Hemoptysis Multinodular thyroid Personal history of fall Edema Grief reaction Frequent PVCs Transient neurological symptoms Seizure-like activity pt. states mild shaking lasting a minute 01/29/22 Other problems related to social environment Marital problem Suicidal ideation Adjustment disorder Abdominal pain, LLQ Thyroid mass Lanza angioma Hypertension Sleep apnea Pituitary adenoma COPD (chronic obstructive pulmonary disease) Tobacco abuse Type 2 diabetes mellitus Amputation of lower limb Seasonal allergies Phimosis Headache Erectile dysfunction Kidney stones Asthma Morbid obesity Diabetes Surgical History History of esophagogastroduodenoscopy (EGD) (~01/2022) Hx of foot surgery left r/t logging accident; hardware present History of knee surgery Family History Other Diabetes Social History Smoking/Tobacco Use Status: Current every day Tobacco Type: smokeless tobacco Tobacco: How many years used: 43 Smokeless tobacco user: chewing tobacco and snuff Smoking risk assessment performed?: Yes Alcohol Intake: current Alcohol Intake frequency: holidays/special occasions only Drug use: Occasionally Substance use type: marijuana Details: 1-2 week Household members: children Number of Children: 4 Education Level: high school 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 Do you feel safe at home: Yes Do you feel safe in your relationship?: Yes PAWSS Have you Been Recently Intoxicated or Drunk Within the Last 30 days?: No Have you Ever Experienced Previous Episodes of Alcohol Withdrawal?: No Have you ever Experienced Withdrawal Seizures?: No Have you ever Experienced Delirium Tremens(DT)s?: No Have you ever undergone Alcohol Rehabilitation Treatment (i.e, inpt ot outpatient treatment programs)?: No Have you ever Experienced Blackouts?: No Have you ever Combined Alcohol with other Downers within the last 90 days?: No Have you ever Combined Alcohol with any other Substance of Abuse during the last 90 days?: No Positive Blood Alcohol level on Presentation? [PCS.BAL]: No Evidence of Increased Autonomic Activity (i.e. HR>120, tremor, sweating, agitation, nausea)?: No Result: 0
[2025-04-11] MEDS: Acetaminophen 500 MG TAB 1000 MG PO (12:34)
[2025-04-11] MEDS: Ibuprofen 600 MG TAB PO (12:34)
[2025-04-11 14:16] VITALS: BP 146/98; PULSE 58; RESP 18; TEMP 36.4; O2SAT 99
[2025-04-11 14:43] VITALS: BP 141/82; PULSE 78; RESP 20; O2SAT 98
== END 2025-04-11 14:44 | disposition home or self-care (01) ==
PROVIDERS: Emergency Provider Emergency Medicine; PCP Nurse Practitioner Family
DX: S62.346A Nondisplaced fracture of base of fifth metacarpal bone, right hand, initial encounter for closed fracture (principal); W01.0XXA Fall on same level from slipping, tripping and stumbling without subsequent striking against object, initial encounter
CPT/HCPCS: 99283 ×2; 29125; 73130

== ENCOUNTER 2025-04-19 10:00 | Outpatient (CLI) | payer MEDICARE, MEDICAID, SELFPAY ==
--- NOTE | 2025-04-19 09:45 | DI.RAD_ITS ---
Exam(s) XR HAND RT COMPLETE EXAM: XR HAND RT COMPLETE CLINICAL HISTORY: F/U 5TH METACARPAL FX. TECHNIQUE: 2D digital imaging was performed of the right hand. Three images were obtained. AP, lateral and oblique views were obtained. COMPARISON: CR XR HAND RT COMPLETE from 04/11/2025 FINDINGS: BONES: There has been no change in alignment of the fracture involving the distal aspect of the 5th metacarpal. No bony destructive lesion is seen. JOINTS: No dislocation present. SOFT TISSUE: Normal. IMPRESSION: Stable nondisplaced fracture involving the 5th metacarpal. DATA REPOSITORY: RADIATION DOSE DELIVERED:
== END 2025-04-19 10:01 | disposition home or self-care (01) ==
LOC: DIORS 04-22 09:27
PROVIDERS: PCP Nurse Practitioner Family; Referring Provider Nurse Practitioner Family; Visit Provider Physician Assistant
DX: S62.356A Nondisplaced fracture of shaft of fifth metacarpal bone, right hand, initial encounter for closed fracture (principal); W54.8XXA Other contact with dog, initial encounter
CPT/HCPCS: 99213; 73130

== ENCOUNTER 2025-05-01 10:28 | Outpatient (CLI) | payer MEDICARE, MEDICAID, SELFPAY ==
--- NOTE | 2025-05-01 09:05 | DI.RAD_ITS ---
Exam(s) XR HAND RT COMPLETE EXAM: XR HAND RT COMPLETE CLINICAL HISTORY: F/U FRACTURE. TECHNIQUE: 2D digital imaging was performed. Three views. COMPARISON: CR XR HAND RT COMPLETE from 04/19/2025 FINDINGS: BONES: Stable alignment of the nondisplaced 5th metacarpal fracture.. No bony destructive lesion is seen. JOINTS: No dislocation present. SOFT TISSUE: Normal. IMPRESSION: Stable alignment of the 5th metacarpal fracture. DATA REPOSITORY: RADIATION DOSE DELIVERED:
== END 2025-05-01 10:29 | disposition home or self-care (01) ==
LOC: DIORS 10:29
PROVIDERS: PCP Nurse Practitioner Family; Referring Provider Nurse Practitioner Family; Visit Provider Physician Assistant
DX: S62.306D Unspecified fracture of fifth metacarpal bone, right hand, subsequent encounter for fracture with routine healing (principal); X58.XXXD Exposure to other specified factors, subsequent encounter
CPT/HCPCS: 99213; 73130